=== PATIENT | male | born 1955 | race Caucasian/White ===

== ENCOUNTER → 2021-05-25 15:21 | Outpatient (CLI) | payer OTHER, SELFPAY ==
[2021-05-25 17:27] LABS: Prostate Specific Antigen < 0.064 ng/mL (0.10-4.00)
== END ==
PROVIDERS: PCP Family Medicine; Referring Provider Urology; Visit Provider Urology
DX: R97.20 Elevated prostate specific antigen [PSA] (principal)
CPT/HCPCS: 36415; 84153

== ENCOUNTER → 2021-12-07 10:00 | Outpatient (CLI) | payer OTHER, SELFPAY | PROVIDERS: PCP Family Medicine; Referring Provider Internal Medicine; Visit Provider Internal Medicine | DX: Z23 Encounter for immunization (principal) | CPT/HCPCS: 90471; 90686 ==

== ENCOUNTER → 2021-12-29 14:30 | Outpatient (CLI) | payer OTHER, SELFPAY ==
--- NOTE | 2021-12-29 14:31 | DI.RAD.S_ITS ---
PROCEDURE: XR FEMUR RT MIN 2V INDICATIONS: pain in hip and shoulder TECHNIQUE: 2 views of the femur were acquired. COMPARISON: [facility], CR, XR PELVIS 1-2V, 12/29/2021, 14:44. FINDINGS: Bones: No fractures or dislocations. No suspicious bony lesions. Moderate to severe right hip joint space narrowing with periarticular osteophyte formation. Soft tissues: No suspicious soft tissue calcifications or masses. IMPRESSION: Moderate to severe right hip joint degeneration. Dictated by: Myles Bacon [facility] Interpreted: Karan Mack MD on 12/29/2021 at 15:22 Transcribed by: GAMALIEL on 12/29/2021 at 15:23 Approved by: Karan Mack M.D. on 12/29/2021 at 17:32
--- NOTE | 2021-12-29 14:31 | DI.RAD.S_ITS ---
PROCEDURE: XR PELVIS 1-2V INDICATIONS: pain in hip and shoulder TECHNIQUE: 1 view(s) of the pelvis acquired. COMPARISON: [facility], CR, XR FEMUR RT MIN 2V, 12/29/2021, 14:44. FINDINGS: Bones: No fractures or dislocations. No suspicious bony lesions. Moderate right and mild left hip joint space narrowing with periarticular osteophyte formation. Soft tissues: Visualized bowel gas pattern is normal. No suspicious soft tissue calcifications. IMPRESSION: Moderate right and mild left hip joint degeneration. Dictated by: Myles Bacon [facility] Interpreted: Karan Mack MD on 12/29/2021 at 15:19 Transcribed by: GAMALIEL on 12/29/2021 at 15:20 Approved by: Karan Mack M.D. on 12/29/2021 at 17:32
--- NOTE | 2021-12-29 14:31 | DI.RAD.S_ITS ---
PROCEDURE: XR SHOULDER RT MIN 2V INDICATIONS: pain in hip and shoulder TECHNIQUE: 3 views of the shoulder were acquired. COMPARISON: None. FINDINGS: Bones: No fractures or dislocations. No suspicious bony lesions. Visualized ribs appear intact. Moderate acromioclavicular and mild glenohumeral joint space narrowing with periarticular osteophyte formation. Soft tissues: No suspicious soft tissue calcifications. IMPRESSION: 1. Moderate acromioclavicular and mild glenohumeral joint degeneration. Dictated by: Myles Bacon [facility] Interpreted: Karan Mack MD on 12/29/2021 at 15:27 Transcribed by: GAMALIEL on 12/29/2021 at 15:27 Approved by: Karan Mack M.D. on 12/29/2021 at 17:31
== END ==
PROVIDERS: PCP Family Medicine; Referring Provider Family Medicine; Visit Provider Family Medicine
DX: M16.0 Bilateral primary osteoarthritis of hip (principal); M19.011 Primary osteoarthritis, right shoulder; M25.551 Pain in right hip; M25.511 Pain in right shoulder; G89.29 Other chronic pain
CPT/HCPCS: 72170; 73030; 73552

== ENCOUNTER → 2022-04-07 07:30 | Outpatient (CLI) | payer OTHER, SELFPAY ==
[2022-04-07 08:37] LABS: Add Manual Diff / Slide Review NO; Basophils Absolute Auto 100 /uL (0-100); Basophils Percent Auto 1.1 % (0-2); Eosinophils Absolute Auto 500 /uL (0-450); Eosinophils Percent Auto 6.5 % (2-4); Hematocrit 45.2 % (41-53); Lymphocytes Absolute Auto 2300 /uL (1100-4500); Lymphocytes Percent Auto 31.9 % (25-40); Mean Corpuscular HGB Conc 33.2 % (30-36); Mean Corpuscular Hemoglobin 26.3 PG (26-34); Mean Corpuscular Volume 79.2 fL (80-100); Monocytes Absolute Auto 800 /uL (0-900); Monocytes Percent Auto 10.7 % (3-14); Neutrophils Absolute Auto 3700 /uL (1500-7000); Neutrophils Percent Auto 49.8 % (50-75); Platelet Count 188 X10^3/uL (150-400); Red Blood Cell Count 5.71 X10^6/uL (4.5-5.9); Red Cell Distribution Width 17.3 % (11.6-14.8); White Blood Cell Count 7.4 X10^3/uL (4.5-11.0)
[2022-04-07 09:05] LABS: Alanine Aminotransferase 24 IU/L (<50); Albumin 4.1 g/dL (3.5-5.0); Albumin Globulin Ratio 1.4 (1.0-2.8); Alkaline Phosphatase 75 U/L (38-126); Aspartate Aminotransferase 26 IU/L (17-59); BUN Creatinine Ratio 14.7 (6-22); Bilirubin Total 0.6 mg/dL (0.2-1.3); Blood Urea Nitrogen 15 mg/dL (9-20); Calcium 8.9 mg/dL (8.4-10.2); Carbon Dioxide 28 mmol/L (22-32); Chloride 105 mmol/L (98-107); Cholesterol 139 mg/dL (140-199); Estimated Glomerular Filt Rate > 60 mL/min (>60); Glucose 88 mg/dL (80-110); HDL Cholesterol 47 mg/dL (40-60); HEMOLYSIS 18 (0-50); LDL Cholesterol Calculated 74 mg/dL (<100); Potassium 4.1 mmol/L (3.4-5.1); Sodium 141 mmol/L (137-145); Total Protein 7.1 g/dL (6.3-8.2); Triglycerides 89 mg/dL (35-150)
[2022-04-07 09:34] LABS: Prostate Specific Antigen Scrn < 0.064 ng/mL (0.1-4.0); TSH w/ Reflex to FT4 3.75 uIU/mL (0.47-4.68)
== END ==
PROVIDERS: PCP Family Medicine; Referring Provider Family Medicine; Visit Provider Family Medicine
DX: E03.9 Hypothyroidism, unspecified (principal); Z12.5 Encounter for screening for malignant neoplasm of prostate
CPT/HCPCS: 36415; 80053; 80061; 84443; 85025; G0103

== ENCOUNTER → 2022-06-14 07:40 | Outpatient (CLI) | payer OTHER, SELFPAY ==
[2022-06-14 09:45] LABS: Prostate Specific Antigen < 0.064 ng/mL (0.10-4.00)
== END ==
PROVIDERS: PCP Family Medicine; Referring Provider Urology; Visit Provider Urology
DX: C61 Malignant neoplasm of prostate (principal)
CPT/HCPCS: 36415; 84153

== ENCOUNTER 2022-10-05 14:15 | Outpatient (RCR) | payer OTHER, SELFPAY ==
--- NOTE | 2022-08-06 16:49 | PT.OIE ---
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) Past Medical History (Last Updated 12/22/21 @ 19:10 by Ashley Bryan) Hearing loss Vision disorder Past Surgical History (Last Updated 12/22/21 @ 19:10 by Ashley Bryan) Anesthesia History of hernia surgery History of prostatectomy (~2018) Visit Care Team Role Provider Type Jethro Finney MD Attending Provider Physician Family Provider Primary Care Provider Referring Provider Specialty: Family Practice Address: [address] [place] [address], [facility] Email: [email or web address] Physical Therapy Initial Evaluation PT-OP-A Visit Information Start: 08/05/22 19:16 Freq: Status: Active Protocol: Document 08/06/22 08:04 LRN (Rec: 08/06/22 08:57 LRN [id number]) Out-Patient Physical Therapy Visit Information Visit Information Visit Type Initial Evaluation Visit Start Time 08:04 Visit Stop Time 08:54 Total Visit Minutes 50 Visit Number 1 Evaluation Information Evaluation Date 08/06/22 Precautions Precautions Neck pain, hypothyroid, hiatel hernia PT-OP-B Current Condition Start: 08/05/22 19:16 Freq: Status: Active Protocol: Document 08/06/22 08:04 LRN (Rec: 08/06/22 08:57 LRN [id number]) Current Condition History of Current Condition Onset Date 01/02/22 Current Complaints Sensitivity of distal R thumb. 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 Pt reports being very sensitive at the distal L thumb to hopes to decrease thumb sensitivity. Sensitive is greatest at ends of scar and along the scar surface, reporting a tickly feeling on mostly the dorsal surface of the L thumb. States there are no precautions to treatment. New skin growth after surgery healed at the end of Jan 2022 . Pt reported thumbnail removed 06/21/22 has healed completely and skin is intact. Prior Treatments and Tests Hand therapy starting 02/2022 for 6 visits. Treatment of ROM and desensitization. No precautions. Future Testing and Treatments Planned Next MD appt -1/week for the next 2 weeks. Treatment Goals Patient/Caregiver Goals Pt goal is desensitization of the thumb to help lessen feeling of tickle when picking up a piece of paper. 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 PT-OP-C Subjective Start: 08/05/22 19:16 Freq: Status: Active Protocol: Document 08/06/22 08:04 LRN (Rec: 08/06/22 08:57 LRN [id number]) Patient Questionnaires Quick Dash- Upper Extremity Quick Dash UE Score 20.45 Quick Dash UE Impairment 20 to 39% Impaired (Score 20- 39) OP-PT Pain Assessment Pain Assessment Grid Paper Pain Assessment Grid Completed Yes Location R thumb Pain Location Details dorsal and palmar surface of R thumb Intensity 8 Scale Used Numeric (0 - 10) Description- Other Tickly feeling Frequency Constant Pain Duration When touched Other Pain Alleviating Factors Vibrator 15'/night with oil, EStim - pads around thumb and 2nd above wrist. PT-OP-H Neuro Start: 08/05/22 19:16 Freq: Status: Active Protocol: Document 08/06/22 08:04 LRN (Rec: 08/06/22 08:57 LRN [id number]) Sensation Evaluation Gross Sensation Gross Sensation Right UE Impaired Sensation Description Hyperesthesia Comments Summary Comments Normal sensation at thumb except at scar and small area of edema. PT-OP-J Posture/Palpation/Skin Start: 08/05/22 19:16 Freq: Status: Active Protocol: Document 08/06/22 08:04 LRN (Rec: 08/06/22 08:57 LRN [id number]) Palpation Assessment Location R thumb Palpation Location Sensitive at ends of scar and along scar and small area of edema. Palpation Details Very small 1/2 cm diameter area adjacent to scar towards distal end of scar associated to a feeling of tickle, also along the scar. Skin Assessment Edema Assessment R thumb tip Edema Type Non-Pitting Edema Degree 1+ Edema Appearance Puffy Comments Tickle sensation PT-OP-K Range of Motion Start: 08/05/22 19:16 Freq: Status: Active Protocol: Document 08/06/22 08:04 LRN (Rec: 08/06/22 08:57 LRN [id number]) Wrist Goniometric Range of Motion Wrist Right Wrist ROM WFL Yes Flexion Active (degrees) 70 Extension Active (degrees) 58 Ulnar Deviation Active (degrees) 30 Radial Deviation Active (degrees) 20 Left Wrist ROM WFL Yes Flexion Active (degrees) 70 Extension Active (degrees) 58 Ulnar Deviation Active (degrees) 30 Radial Deviation Active (degrees) 30 Thumb Goniometric Range of Motion Thumb Right Thumb ROM WFL Yes MCP Flexion Active (degrees) 58 CMC Extension Active (degrees) 20 Comments R MCP: ext lacks 8 deg's to full extension. CMC AB: 42 deg's Left MCP Flexion Active (degrees) 50 MCP Extension Active (0 degrees) 0 H CMC Extension Active (degrees) 34 Comments CMC AB: 66 deg's PT-OP-M Strength Start: 08/05/22 19:16 Freq: Status: Active Protocol: Document 08/06/22 08:04 LRN (Rec: 08/06/22 08:57 LRN [id number]) Finger/Thumb Strength Finger Manual Muscle Testing Right Thumb Flexion (fingers C8) 5 Normal Extension (thumb C8) 5 Normal Adduction 5 Normal Abduction (fingers T1) 5 Normal Left Thumb Flexion (fingers C8) 5 Normal Extension (thumb C8) 5 Normal Adduction 5 Normal Abduction (fingers T1) 5 Normal Hand Glassware Verifier/Pinch Strength Hand Dominance Hand Dominance Right PT-OP-Q Treatments Start: 08/05/22 19:16 Freq: Status: Active Protocol: Document 08/06/22 08:04 LRN (Rec: 08/06/22 08:57 LRN [id number]) Manual Therapy Treatment Soft Tissue Mobilization L thumb Body Location Healed scar at distal end of L thumb Mobilization Type Myofascial Release Intensity/Depth Superficial Body Position Sitting Taping L thumb scar Body Location L thumb scar Treatment Focus Improve mobility Type of Tape Kinesio Tape Skin Inspection Healthy and intact Self-Care/Home Management Treatment Education Other Education Discussed results of evaluation, goals, and plan of care (POC). Pt agreeable to goals and POC. Discussed use of pt's current modalities: vibration tool, EStim unit, and Soft vinyl for STM. Activities Self-Care/Home Management Activities I/S pt in length of usage of K -tape with discussion of removal in case of allergic reaction and safe and proper method to remove within 5 days or less. Discussed precaution of wearing K-tape for longer than 5 days. Pt I/S in self care scar mobilization technique. PT-OP-T Assessment and Plan Start: 08/05/22 19:16 Freq: Status: Active Protocol: Document 08/06/22 08:04 LRN (Rec: 08/06/22 08:57 LRN [id number]) Physical Therapy Assessment Rehab Potential Rehabilitation Potential Good Evaluation Complexity Number of Personal Factors/Comorbidities 1-2 Number of Body Systems Impaired 3 Clinical Presentation at Evaluation Evolving Impairments Impairments Activity Tolerance,ROM, Sensation Goals Two Impairment Increased sensitivity at distal end of L amputated thumb-tickle sensation. Impairment UE Quickdash score 20 (20-39% impaired, score 20-39) Short Term Goal (STG) Decrease sensitivity of the L thumb with decrease tickle feeling when touching objects. Pt goal is desensitization of the thumb to help lessen feeling of tickle when picking up a piece of paper. STG Duration 09/03/22 Senior Care Goal (LTG) Pt will report less irritation towards picking up a piece of paper with L thumb. LTG Duration 09/20/22 One Impairment Pt lacks self care HEP Short Term Goal (STG) Pt will be educated in self STM, use of K-tape to improve scar mobility of distal L thumb. STG Duration 08/13/22 Senior Care Goal (LTG) Pt will be educated and independent with self care pain management techniques to decrease sensitivity of L thumb (contrast bath, materal desensitization). LTG Duration 09/20/22 Assessment Summary Assessment Pt is a 67 yo male s/p L thumb amputation 01/02/22 and subsequent hand therapy at [facility] starting 02/2022 for 6 visits. The pt has L thumb hypersensitivity of a tickle feeling when touched at the well healed scar and adjacent issues. He has no pain and his skin integrity and health is normal. The pt will benefit from skilled physical therapy for manual STM of scar and adjacent areas, desensitization techniques, and pt education in a self skilled nursing program. It is expected that it will take an extended period of time for improvement; therefore the pt will be progressed onto a program and seen for a follow up visit before DC from physical therapy. Physical Therapy Plan Frequency and Duration Frequency of Treatment 1x/Week Plan of Care Start Date 08/06/22 Plan of Care End Date 09/20/22 Therapeutic Interventions Therapeutic Interventions Home Exercise Program,Manual Therapy,Patient/Caregiver Education,Self-Care/Home Management,Soft Tissue Mobilization,Taping, Therapeutic Exercises Modalities Cold Pack/Ice Massage,Hot Packs,Paraffin Bath Next Visit Focus/Plan Next Note Type Treatment Note Next Visit Plan 2x/week for first week f/b 1x/ week until home program established and plateau in progress in the clinic, then pt will be seen for f/u visit after being on self care program before final discharge from therapy. POC: desensitization of L thumb scar and adjacent skin. STM, ROM, edema management as needed, and use of K-tape, hot/cold, progressive desensitization rice, beans, material, Paraffin dip.
--- NOTE | 2022-08-06 16:50 | PT.OPPOC ---
Physical, Occupational & Speech Therapy At 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) Visit Care Team Role Provider Type Jethro Finney MD Attending Provider Physician Family Provider Primary Care Provider Referring Provider Specialty: Family Practice Address: [address] [place] [address], [id number] Email: [email or web address] Plan Of Care PT-OP-T Assessment and Plan Start: 08/05/22 19:16 Freq: Status: Active Protocol: Document 08/06/22 08:04 LRN (Rec: 08/06/22 08:57 LRN [id number]) Physical Therapy Assessment Rehab Potential Rehabilitation Potential Good Evaluation Complexity Number of Personal Factors/Comorbidities 1-2 Number of Body Systems Impaired 3 Clinical Presentation at Evaluation Evolving Impairments Impairments Activity Tolerance,ROM, Sensation Goals Two Impairment Increased sensitivity at distal end of L amputated thumb-tickle sensation. Impairment UE Quickdash score 20 (20-39% impaired, score 20-39) Short Term Goal (STG) Decrease sensitivity of the L thumb with decrease tickle feeling when touching objects. Pt goal is desensitization of the thumb to help lessen feeling of tickle when picking up a piece of paper. STG Duration 09/03/22 Packing And Shipping Clerk Goal (LTG) Pt will report less irritation towards picking up a piece of paper with L thumb. LTG Duration 09/20/22 One Impairment Pt lacks self care HEP Short Term Goal (STG) Pt will be educated in self STM, use of K-tape to improve scar mobility of distal L thumb. STG Duration 08/13/22 Penitentiary Goal (LTG) Pt will be educated and independent with self care pain management techniques to decrease sensitivity of L thumb (contrast bath, materal desensitization). LTG Duration 09/20/22 Assessment Summary Assessment Pt is a 67 yo male s/p L thumb amputation 01/02/22 and subsequent hand therapy at [facility] starting 02/2022 for 6 visits. The pt has L thumb hypersensitivity of a tickle feeling when touched at the well healed scar and adjacent issues. He has no pain and his skin integrity and health is normal. The pt will benefit from skilled physical therapy for manual STM of scar and adjacent areas, desensitization techniques, and pt education in a self usp program. It is expected that it will take an extended period of time for improvement; therefore the pt will be progressed onto a program and seen for a follow up visit before DC from physical therapy. Physical Therapy Plan Frequency and Duration Frequency of Treatment 1x/Week Plan of Care Start Date 08/06/22 Plan of Care End Date 09/20/22 Therapeutic Interventions Therapeutic Interventions Home Exercise Program,Manual Therapy,Patient/Caregiver Education,Self-Care/Home Management,Soft Tissue Mobilization,Taping, Therapeutic Exercises Modalities Cold Pack/Ice Massage,Hot Packs,Paraffin Bath Next Visit Focus/Plan Next Note Type Treatment Note Next Visit Plan 2x/week for first week f/b 1x/ week until home program established and plateau in progress in the clinic, then pt will be seen for f/u visit after being on self care program before final discharge from therapy. POC: desensitization of L thumb scar and adjacent skin. STM, ROM, edema management as needed, and use of K-tape, hot/cold, progressive desensitization rice, beans, material, Paraffin dip. Plan of Care Dates Plan of Care Start Date 08/06/22 Plan of Care End Date 09/20/22 Electronically Signed by: Sarah Queen, PT 08/06/22 3116 If you are in agreement with this Plan of Care, please return a signed and dated copy. I have reviewed this Plan of Care and certify that the skilled therapy services above are required to meet the patient?s needs. Physician Signature Date Printed Name and Credentials Clinical Instructor Signature Printed Name and Credentials
--- NOTE | 2022-08-12 16:40 | PT.OTN ---
Current Diagnoses Acquired absence of left thumb (08/12/22) Physical Therapy Treatment Note PT-OP-A Visit Information Start: 08/05/22 19:16 Freq: Status: Active Protocol: Document 08/12/22 15:04 LRN (Rec: 08/12/22 16:39 LRN [id number]) Out-Patient Physical Therapy Visit Information Visit Information Visit Type Treatment Note Visit Start Time 15:04 Visit Stop Time 15:52 Total Visit Minutes 48 Visit Number 38 Evaluation Information Evaluation Date 08/06/22 Precautions Precautions Neck pain, hypothyroid, hiatel hernia PT-OP-B Current Condition Start: 08/05/22 19:16 Freq: Status: Active Protocol: Document 08/06/22 08:04 LRN (Rec: 08/06/22 08:57 LRN [id number]) Current Condition History of Current Condition Onset Date 01/02/22 Current Complaints Sensitivity of distal R thumb. 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 Pt reports being very sensitive at the distal L thumb to hopes to decrease thumb sensitivity. Sensitive is greatest at ends of scar and along the scar surface, reporting a tickly feeling on mostly the dorsal surface of the L thumb. States there are no precautions to treatment. New skin growth after surgery healed at the end of Jan 2022 . Pt reported thumbnail removed 06/21/22 has healed completely and skin is intact. Prior Treatments and Tests Hand therapy starting 02/2022 for 6 visits. Treatment of ROM and desensitization. No precautions. Future Testing and Treatments Planned Next MD appt -1/week for the next 2 weeks. Treatment Goals Patient/Caregiver Goals Pt goal is desensitization of the thumb to help lessen feeling of tickle when picking up a piece of paper. 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 PT-OP-C Subjective Start: 08/05/22 19:16 Freq: Status: Active Protocol: Document 08/12/22 15:04 LRN (Rec: 08/12/22 16:39 LRN [id number]) OP-PT Subjective Patient Comments Patient Comments Pt reports doing self massage to L healed thumb. Scar sensitive. PT-OP-H Neuro Start: 08/05/22 19:16 Freq: Status: Active Protocol: Document 08/06/22 08:04 LRN (Rec: 08/06/22 08:57 LRN [id number]) Sensation Evaluation Gross Sensation Gross Sensation Right UE Impaired Sensation Description Hyperesthesia Comments Summary Comments Normal sensation at thumb except at scar and small area of edema. PT-OP-J Posture/Palpation/Skin Start: 08/05/22 19:16 Freq: Status: Active Protocol: Document 08/12/22 15:04 LRN (Rec: 08/12/22 16:39 LRN [id number]) Palpation Assessment Location R thumb Palpation Location Tip of thumb where thumbnail is. Palpation Details No pain, good skin coloring. PT-OP-K Range of Motion Start: 08/05/22 19:16 Freq: Status: Active Protocol: Document 08/06/22 08:04 LRN (Rec: 08/06/22 08:57 LRN [id number]) Wrist Goniometric Range of Motion Wrist Right Wrist ROM WFL Yes Flexion Active (degrees) 70 Extension Active (degrees) 58 Ulnar Deviation Active (degrees) 30 Radial Deviation Active (degrees) 20 Left Wrist ROM WFL Yes Flexion Active (degrees) 70 Extension Active (degrees) 58 Ulnar Deviation Active (degrees) 30 Radial Deviation Active (degrees) 30 Thumb Goniometric Range of Motion Thumb Right Thumb ROM WFL Yes MCP Flexion Active (degrees) 58 CMC Extension Active (degrees) 20 Comments R MCP: ext lacks 8 deg's to full extension. CMC AB: 42 deg's Left MCP Flexion Active (degrees) 50 MCP Extension Active (0 degrees) 0 H CMC Extension Active (degrees) 34 Comments CMC AB: 66 deg's PT-OP-M Strength Start: 08/05/22 19:16 Freq: Status: Active Protocol: Document 08/06/22 08:04 LRN (Rec: 08/06/22 08:57 LRN [id number]) Finger/Thumb Strength Finger Manual Muscle Testing Right Thumb Flexion (fingers C8) 5 Normal Extension (thumb C8) 5 Normal Adduction 5 Normal Abduction (fingers T1) 5 Normal Left Thumb Flexion (fingers C8) 5 Normal Extension (thumb C8) 5 Normal Adduction 5 Normal Abduction (fingers T1) 5 Normal Hand Vp Human Resources/Pinch Strength Hand Dominance Hand Dominance Right PT-OP-Q Treatments Start: 08/05/22 19:16 Freq: Status: Active Protocol: Document 08/12/22 15:04 LRN (Rec: 08/12/22 16:39 LRN [id number]) Manual Therapy Treatment Soft Tissue Mobilization L thumb Body Location Healed scar - all areas. Mobilization Type Myofascial Release Intensity/Depth Superficial to moderate Body Position Sitting Taping L thumb scar Body Location L thumb scar (plantar and medially) Treatment Focus 2 narrow I-strips to Improve mobility Type of Tape Kinesio Tape Skin Inspection Healthy and intact Self-Care/Home Management Treatment Education Other Education Pt educated and discussed contrast bath treatment to the R thumb with reinforcement to start/end with heat. Pt educated and shown in self STM to healed scar durint STM treatment. Activities Self-Care/Home Management Activities Issued handout for contrast bath treatment. I/S pt in length of usage of K -tape with discussion of removal in case of allergic reaction and safe and proper method to remove within 5 days or less. PT-OP-T Assessment and Plan Start: 08/05/22 19:16 Freq: Status: Active Protocol: Document 08/12/22 15:04 LRN (Rec: 08/12/22 16:39 LRN [id number]) Physical Therapy Assessment Goals Two Impairment Increased sensitivity at distal end of L amputated thumb-tickle sensation. Impairment UE Quickdash score 20 (20-39% impaired, score 20-39) Short Term Goal (STG) Decrease sensitivity of the L thumb with decrease tickle feeling when touching objects. Pt goal is desensitization of the thumb to help lessen feeling of tickle when picking up a piece of paper. STG Duration 09/03/22 Director Of Mobile Marketing Goal (LTG) Pt will report less irritation towards picking up a piece of paper with L thumb. LTG Duration 09/20/22 One Impairment Pt lacks self care HEP Short Term Goal (STG) Pt will be educated in self STM, use of K-tape to improve scar mobility of distal L thumb. 08/12/22: Pt I/S in self STM to improve scar mobility during MFR treatment. STG Duration 08/13/22 progressed 08/12/22 Nursing Home Goal (LTG) Pt will be educated and independent with self care pain management techniques to decrease sensitivity of L thumb (materal desensitization ). 08/12/22: Pt educated in self care contrast bath treatment. LTG Duration 09/20/22 progressed 08/12/22. Assessment Summary Assessment s/p L thumb amputation 11/12/ 22 and subsequent hand therapy at [facility] starting 02/2022 for 6 visits. No L thumb edema noted. The pt had tickle relief while K-tape was on, but conts to have sensitivity at well healed scar. He tolerated MFR very well with scar mob. Pt has most sensitivity in areas that are very restricted with mobility. Hopeful sensitivity will decrease with mobilization. Physical Therapy Plan Frequency and Duration Frequency of Treatment 1x/Week Plan of Care Start Date 08/06/22 Plan of Care End Date 09/20/22 Next Visit Focus/Plan Next Note Type Treatment Note Next Visit Plan 1x/week until home program established (2 more appts scheduled) and/or plateau in progress in the clinic, then pt will be seen for f/u visit after being on self care program for 2-3 weeks before final discharge from therapy. POC: desensitization of L thumb scar and adjacent skin with treatment and self care education: progressive desensitization with rice, beans, material, Paraffin dip. Cont STM, ROM, and use of K -tape.
--- NOTE | 2022-08-16 15:51 | PT.OTN ---
Current Diagnoses Acquired absence of left thumb (08/16/22) Physical Therapy Treatment Note PT-OP-A Visit Information Start: 08/05/22 19:16 Freq: Status: Active Protocol: Document 08/16/22 14:06 LRN (Rec: 08/16/22 15:51 LRN [id number]) Out-Patient Physical Therapy Visit Information Visit Information Visit Type Treatment Note Visit Start Time 14:58 Visit Stop Time 15:38 Total Visit Minutes 40 Visit Number 3 Evaluation Information Evaluation Date 08/06/22 Precautions Precautions Neck pain, hypothyroid, hiatel hernia PT-OP-B Current Condition Start: 08/05/22 19:16 Freq: Status: Active Protocol: Document 08/06/22 08:04 LRN (Rec: 08/06/22 08:57 LRN [id number]) Current Condition History of Current Condition Onset Date 01/02/22 Current Complaints Sensitivity of distal R thumb. 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 Pt reports being very sensitive at the distal L thumb to hopes to decrease thumb sensitivity. Sensitive is greatest at ends of scar and along the scar surface, reporting a tickly feeling on mostly the dorsal surface of the L thumb. States there are no precautions to treatment. New skin growth after surgery healed at the end of Jan 2022 . Pt reported thumbnail removed 06/21/22 has healed completely and skin is intact. Prior Treatments and Tests Hand therapy starting 02/2022 for 6 visits. Treatment of ROM and desensitization. No precautions. Future Testing and Treatments Planned Next MD appt -1/week for the next 2 weeks. Treatment Goals Patient/Caregiver Goals Pt goal is desensitization of the thumb to help lessen feeling of tickle when picking up a piece of paper. 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 PT-OP-C Subjective Start: 08/05/22 19:16 Freq: Status: Active Protocol: Document 08/16/22 14:06 LRN (Rec: 08/16/22 15:51 LRN [id number]) OP-PT Subjective Patient Comments Patient Comments States his L thumb is a little less sensitive with messing with it. Patient Reported Progress Improving PT-OP-H Neuro Start: 08/05/22 19:16 Freq: Status: Active Protocol: Document 08/06/22 08:04 LRN (Rec: 08/06/22 08:57 LRN [id number]) Sensation Evaluation Gross Sensation Gross Sensation Right UE Impaired Sensation Description Hyperesthesia Comments Summary Comments Normal sensation at thumb except at scar and small area of edema. PT-OP-J Posture/Palpation/Skin Start: 08/05/22 19:16 Freq: Status: Active Protocol: Document 08/12/22 15:04 LRN (Rec: 08/12/22 16:39 LRN [id number]) Palpation Assessment Location R thumb Palpation Location Tip of thumb where thumbnail is. Palpation Details No pain, good skin coloring. PT-OP-K Range of Motion Start: 08/05/22 19:16 Freq: Status: Active Protocol: Document 08/06/22 08:04 LRN (Rec: 08/06/22 08:57 LRN [id number]) Wrist Goniometric Range of Motion Wrist Right Wrist ROM WFL Yes Flexion Active (degrees) 70 Extension Active (degrees) 58 Ulnar Deviation Active (degrees) 30 Radial Deviation Active (degrees) 20 Left Wrist ROM WFL Yes Flexion Active (degrees) 70 Extension Active (degrees) 58 Ulnar Deviation Active (degrees) 30 Radial Deviation Active (degrees) 30 Thumb Goniometric Range of Motion Thumb Right Thumb ROM WFL Yes MCP Flexion Active (degrees) 58 CMC Extension Active (degrees) 20 Comments R MCP: ext lacks 8 deg's to full extension. CMC AB: 42 deg's Left MCP Flexion Active (degrees) 50 MCP Extension Active (0 degrees) 0 H CMC Extension Active (degrees) 34 Comments CMC AB: 66 deg's PT-OP-M Strength Start: 08/05/22 19:16 Freq: Status: Active Protocol: Document 08/06/22 08:04 LRN (Rec: 08/06/22 08:57 LRN [id number]) Finger/Thumb Strength Finger Manual Muscle Testing Right Thumb Flexion (fingers C8) 5 Normal Extension (thumb C8) 5 Normal Adduction 5 Normal Abduction (fingers T1) 5 Normal Left Thumb Flexion (fingers C8) 5 Normal Extension (thumb C8) 5 Normal Adduction 5 Normal Abduction (fingers T1) 5 Normal Hand Wood Boatbuilder Apprentice/Pinch Strength Hand Dominance Hand Dominance Right PT-OP-Q Treatments Start: 08/05/22 19:16 Freq: Status: Active Protocol: Document 08/16/22 14:06 LRN (Rec: 08/16/22 15:51 LRN [id number]) Therapeutic Exercises Sitting Exercises L IP jt flex/ext Sitting Exercise Name L IP jt flex/ext Side left Reps/Minutes 15x 2 Comments While on Paraffin Wax CMC jt flex/ext Sitting Exercise Name CMC jt flex/ext Side left Reps/Minutes 15x 2 Comments While on Paraffin Wax Manual Therapy Treatment Soft Tissue Mobilization L thumb Body Location Healed scar - all areas. Mobilization Type Myofascial Release Intensity/Depth Superficial to moderate Body Position Sitting Taping L thumb scar Body Location L thumb scar (plantar and medially) Treatment Focus 1 narrow I-strips to Improve mobility Type of Tape Kinesio Tape Skin Inspection Healthy and intact Comments Educated pt in self application of K-tape to L thumb. Issued 1 strip of K- tape for pt to self apply at home. Reviewed max day wear of 5 days with 1 day rest between application. PT-OP-R Modalities Start: 08/05/22 19:16 Freq: Status: Active Protocol: Document 08/16/22 14:06 LRStephanie (Rec: 08/16/22 15:51 LR [id number]) Paraffin Bath Treatment Left Hand Treatment Technique Dip-immersion Wax Temperature (degrees F) 127 Number Wax Layers (layers) 8 Duration (minutes) 15 Patient Tolerance Good Comment Treatment Comment 53 deg's Celsius. Extra time to assure hand clean before dip. PT-OP-T Assessment and Plan Start: 08/05/22 19:16 Freq: Status: Active Protocol: Document 08/16/22 14:06 JOSE CRUZ (Rec: 08/16/22 15:51 [facility] [id number]) Physical Therapy Assessment Goals Two Impairment Increased sensitivity at distal end of L amputated thumb-tickle sensation. Impairment UE Quickdash score 20 (20-39% impaired, score 20-39) Short Term Goal (STG) Decrease sensitivity of the L thumb with decrease tickle feeling when touching objects. Pt goal is desensitization of the thumb to help lessen feeling of tickle when picking up a piece of paper. STG Duration 09/03/22 Tap Out Operator Goal (LTG) Pt will report less irritation towards picking up a piece of paper with L thumb. LTG Duration 09/20/22 One Impairment Pt lacks self care HEP Short Term Goal (STG) Pt will be educated in self STM, use of K-tape to improve scar mobility of distal L thumb. 08/12/22: Pt I/S in self STM to improve scar mobility during MFR treatment. 08/16/22: Educated pt in self K-tape application. STG Duration 08/13/22 progressed 08/12/22 Tap Out Operator Goal (LTG) Pt will be educated and independent with self care pain management techniques to decrease sensitivity of L thumb (materal desensitization ). 08/12/22: Pt educated in self care contrast bath treatment. LTG Duration 09/20/22 progressed 08/12/22. Assessment Summary Assessment Pt appears to have improved tolerance to scar mob. + response to paraffin dip with pt able to tolerate scar mob with less discomfort. Physical Therapy Plan Frequency and Duration Frequency of Treatment 1x/Week Plan of Care Start Date 08/06/22 Plan of Care End Date 09/20/22 Next Visit Focus/Plan Next Note Type Treatment Note Next Visit Plan 1 more appts scheduled, assess the need for further therapy. Once on self [facility] program, see pt for f/u visit in 2-3 weeks for expected final visit and discharge from therapy. Next: treat and self care education: desensitization with progressive desensitization with rice, beans, material. Cont if able, paraffin and ROM ; STM and K-tape.
--- NOTE | 2022-08-20 18:34 | PT.OTN ---
Current Diagnoses Acquired absence of left thumb (08/20/22) Physical Therapy Treatment Note PT-OP-A Visit Information Start: 08/05/22 19:16 Freq: Status: Active Protocol: Document 08/20/22 08:01 LRN (Rec: 08/20/22 08:49 LRN [id number]) Out-Patient Physical Therapy Visit Information Visit Information Visit Type Treatment Note Visit Start Time 08:01 Visit Stop Time 08:49 Total Visit Minutes 48 Visit Number 4 Evaluation Information Evaluation Date 08/06/22 Precautions Precautions Neck pain, hypothyroid, hiatel hernia PT-OP-B Current Condition Start: 08/05/22 19:16 Freq: Status: Active Protocol: Document 08/06/22 08:04 LRN (Rec: 08/06/22 08:57 LRN [id number]) Current Condition History of Current Condition Onset Date 01/02/22 Current Complaints Sensitivity of distal R thumb. 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 Pt reports being very sensitive at the distal L thumb to hopes to decrease thumb sensitivity. Sensitive is greatest at ends of scar and along the scar surface, reporting a tickly feeling on mostly the dorsal surface of the L thumb. States there are no precautions to treatment. New skin growth after surgery healed at the end of Jan 2022 . Pt reported thumbnail removed 06/21/22 has healed completely and skin is intact. Prior Treatments and Tests Hand therapy starting 02/2022 for 6 visits. Treatment of ROM and desensitization. No precautions. Future Testing and Treatments Planned Next MD appt -1/week for the next 2 weeks. Treatment Goals Patient/Caregiver Goals Pt goal is desensitization of the thumb to help lessen feeling of tickle when picking up a piece of paper. 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 PT-OP-C Subjective Start: 08/05/22 19:16 Freq: Status: Active Protocol: Document 08/20/22 08:01 LRN (Rec: 08/20/22 08:49 LRN [id number]) OP-PT Subjective Patient Comments Patient Comments Pt states he is a little better, less sensitivity. PT-OP-H Neuro Start: 08/05/22 19:16 Freq: Status: Active Protocol: Document 08/06/22 08:04 LRN (Rec: 08/06/22 08:57 LRN [id number]) Sensation Evaluation Gross Sensation Gross Sensation Right UE Impaired Sensation Description Hyperesthesia Comments Summary Comments Normal sensation at thumb except at scar and small area of edema. PT-OP-J Posture/Palpation/Skin Start: 08/05/22 19:16 Freq: Status: Active Protocol: Document 08/12/22 15:04 LRN (Rec: 08/12/22 16:39 LRN [id number]) Palpation Assessment Location R thumb Palpation Location Tip of thumb where thumbnail is. Palpation Details No pain, good skin coloring. PT-OP-K Range of Motion Start: 08/05/22 19:16 Freq: Status: Active Protocol: Document 08/06/22 08:04 LRN (Rec: 08/06/22 08:57 LRN [id number]) Wrist Goniometric Range of Motion Wrist Right Wrist ROM WFL Yes Flexion Active (degrees) 70 Extension Active (degrees) 58 Ulnar Deviation Active (degrees) 30 Radial Deviation Active (degrees) 20 Left Wrist ROM WFL Yes Flexion Active (degrees) 70 Extension Active (degrees) 58 Ulnar Deviation Active (degrees) 30 Radial Deviation Active (degrees) 30 Thumb Goniometric Range of Motion Thumb Right Thumb ROM WFL Yes MCP Flexion Active (degrees) 58 CMC Extension Active (degrees) 20 Comments R MCP: ext lacks 8 deg's to full extension. CMC AB: 42 deg's Left MCP Flexion Active (degrees) 50 MCP Extension Active (0 degrees) 0 H CMC Extension Active (degrees) 34 Comments CMC AB: 66 deg's PT-OP-M Strength Start: 08/05/22 19:16 Freq: Status: Active Protocol: Document 08/06/22 08:04 LRN (Rec: 08/06/22 08:57 LRN [id number]) Finger/Thumb Strength Finger Manual Muscle Testing Right Thumb Flexion (fingers C8) 5 Normal Extension (thumb C8) 5 Normal Adduction 5 Normal Abduction (fingers T1) 5 Normal Left Thumb Flexion (fingers C8) 5 Normal Extension (thumb C8) 5 Normal Adduction 5 Normal Abduction (fingers T1) 5 Normal Hand Fighting Vehicle Systems Maintainer/Pinch Strength Hand Dominance Hand Dominance Right PT-OP-Q Treatments Start: 08/05/22 19:16 Freq: Status: Active Protocol: Document 08/20/22 08:01 LRN (Rec: 08/20/22 08:49 LRN [id number]) Manual Therapy Treatment Soft Tissue Mobilization L thumb Body Location Healed scar - all areas. Mobilization Type Myofascial Release Intensity/Depth Superficial to moderate Body Position Sitting Taping L thumb scar Body Location L thumb scar (plantar and medially) Treatment Focus 1 narrow I-strips to Improve mobility Type of Tape Kinesio Tape Skin Inspection Healthy and intact Comments Educated pt in self application of K-tape to L thumb. Issued 1 strip of K- tape for pt to self apply at home. Reviewed max day wear of 5 days with 1 day rest between application. Manual Techniques Desensitization Type Skin desensitization Body Location L thumb Body Position Sitting Reps/Duration 3' Comments Use of cotton ball, q-tip, washcloth. PT-OP-R Modalities Start: 08/05/22 19:16 Freq: Status: Active Protocol: Document 08/20/22 08:01 LRN (Rec: 08/20/22 18:34 LRN [id number]) Paraffin Bath Comment Treatment Comment Pre-treatment program done, but paraffin was not available . PT-OP-T Assessment and Plan Start: 08/05/22 19:16 Freq: Status: Active Protocol: Document 08/20/22 08:01 LRN (Rec: 08/20/22 08:49 LRN [id number]) Physical Therapy Assessment Goals Two Impairment Increased sensitivity at distal end of L amputated thumb-tickle sensation. Impairment UE Quickdash score 20 (20-39% impaired, score 20-39) Short Term Goal (STG) Decrease sensitivity of the L thumb with decrease tickle feeling when touching objects. Pt goal is desensitization of the thumb to help lessen feeling of tickle when picking up a piece of paper. STG Duration 09/03/22 Product Safety Compliance Leader Goal (LTG) Pt will report less irritation towards picking up a piece of paper with L thumb. LTG Duration 09/20/22 One Impairment Pt lacks self care HEP Short Term Goal (STG) Pt will be educated in self STM, use of K-tape to improve scar mobility of distal L thumb. 08/12/22: Pt I/S in self STM to improve scar mobility during MFR treatment. 08/16/22: Educated pt in self K-tape application. STG Duration 08/13/22 progressed 08/12/22 Detention Goal (LTG) Pt will be educated and independent with self care pain management techniques to decrease sensitivity of L thumb (materal desensitization ). 08/12/22: Pt educated in self care contrast bath treatment. LTG Duration 09/20/22 progressed 08/12/22. Assessment Summary Assessment Pt finding improvement in desensitizing the L thumb; therefore will continue therapy 1x/week. Physical Therapy Plan Frequency and Duration Frequency of Treatment 1x/Week Plan of Care Start Date 08/06/22 Plan of Care End Date 09/20/22 Next Visit Focus/Plan Next Note Type Treatment Note Next Visit Plan Assess response to home desensitization. Cont 1x/week . Next: treat and self care education: desensitization with progressive desensitization with rice, beans, material. Cont paraffin and STM/MFR and K-tape.
--- NOTE | 2022-08-27 17:19 | PT.OTN ---
Current Diagnoses Acquired absence of left thumb (08/27/22) Physical Therapy Treatment Note PT-OP-A Visit Information Start: 08/05/22 19:16 Freq: Status: Active Protocol: Document 08/27/22 10:27 LRN (Rec: 08/27/22 11:08 LRN [id number]) Out-Patient Physical Therapy Visit Information Visit Information Visit Type Treatment Note Visit Start Time 10:27 Visit Stop Time 11:15 Total Visit Minutes 48 Visit Number 5 Evaluation Information Evaluation Date 08/06/22 Precautions Precautions Neck pain, hypothyroid, hiatel hernia PT-OP-B Current Condition Start: 08/05/22 19:16 Freq: Status: Active Protocol: Document 08/06/22 08:04 LRN (Rec: 08/06/22 08:57 LRN [id number]) Current Condition History of Current Condition Onset Date 01/02/22 Current Complaints Sensitivity of distal R thumb. 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 Pt reports being very sensitive at the distal L thumb to hopes to decrease thumb sensitivity. Sensitive is greatest at ends of scar and along the scar surface, reporting a tickly feeling on mostly the dorsal surface of the L thumb. States there are no precautions to treatment. New skin growth after surgery healed at the end of Jan 2022 . Pt reported thumbnail removed 06/21/22 has healed completely and skin is intact. Prior Treatments and Tests Hand therapy starting 02/2022 for 6 visits. Treatment of ROM and desensitization. No precautions. Future Testing and Treatments Planned Next MD appt -1/week for the next 2 weeks. Treatment Goals Patient/Caregiver Goals Pt goal is desensitization of the thumb to help lessen feeling of tickle when picking up a piece of paper. 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 PT-OP-C Subjective Start: 08/05/22 19:16 Freq: Status: Active Protocol: Document 08/27/22 10:27 LRN (Rec: 08/27/22 11:08 LRN [id number]) OP-PT Subjective Patient Comments Patient Comments Not as sensitive as it was. Hot/cold helps and doing vibrating massager. Buttoning his R armsleeve is difficult due to amputation and sensation change of tickling. States the L CMC jt used to really hurt moving the thumb, but not nearly as bad. PT-OP-H Neuro Start: 08/05/22 19:16 Freq: Status: Active Protocol: Document 08/06/22 08:04 LRN (Rec: 08/06/22 08:57 LRN [id number]) Sensation Evaluation Gross Sensation Gross Sensation Right UE Impaired Sensation Description Hyperesthesia Comments Summary Comments Normal sensation at thumb except at scar and small area of edema. PT-OP-J Posture/Palpation/Skin Start: 08/05/22 19:16 Freq: Status: Active Protocol: Document 08/12/22 15:04 LRN (Rec: 08/12/22 16:39 LRN [id number]) Palpation Assessment Location R thumb Palpation Location Tip of thumb where thumbnail is. Palpation Details No pain, good skin coloring. PT-OP-K Range of Motion Start: 08/05/22 19:16 Freq: Status: Active Protocol: Document 08/06/22 08:04 LRN (Rec: 08/06/22 08:57 LRN [id number]) Wrist Goniometric Range of Motion Wrist Right Wrist ROM WFL Yes Flexion Active (degrees) 70 Extension Active (degrees) 58 Ulnar Deviation Active (degrees) 30 Radial Deviation Active (degrees) 20 Left Wrist ROM WFL Yes Flexion Active (degrees) 70 Extension Active (degrees) 58 Ulnar Deviation Active (degrees) 30 Radial Deviation Active (degrees) 30 Thumb Goniometric Range of Motion Thumb Right Thumb ROM WFL Yes MCP Flexion Active (degrees) 58 CMC Extension Active (degrees) 20 Comments R MCP: ext lacks 8 deg's to full extension. CMC AB: 42 deg's Left MCP Flexion Active (degrees) 50 MCP Extension Active (0 degrees) 0 H CMC Extension Active (degrees) 34 Comments CMC AB: 66 deg's PT-OP-M Strength Start: 08/05/22 19:16 Freq: Status: Active Protocol: Document 08/06/22 08:04 LRN (Rec: 08/06/22 08:57 LRN [id number]) Finger/Thumb Strength Finger Manual Muscle Testing Right Thumb Flexion (fingers C8) 5 Normal Extension (thumb C8) 5 Normal Adduction 5 Normal Abduction (fingers T1) 5 Normal Left Thumb Flexion (fingers C8) 5 Normal Extension (thumb C8) 5 Normal Adduction 5 Normal Abduction (fingers T1) 5 Normal Hand Cell Tester/Pinch Strength Hand Dominance Hand Dominance Right PT-OP-Q Treatments Start: 08/05/22 19:16 Freq: Status: Active Protocol: Document 08/27/22 10:27 LRN (Rec: 08/27/22 11:08 LRN [id number]) Manual Therapy Treatment Soft Tissue Mobilization L thumb Body Location Healed scar - all areas. Mobilization Type Myofascial Release Intensity/Depth Superficial to moderate Body Position Sitting Comments Added STM of twisting and zig/ zag of healsed scar. Taping L thumb scar Body Location L thumb scar (plantar and medially) Treatment Focus 2 narrow I-strips to Improve mobility Type of Tape Kinesio Tape Skin Inspection Healthy and intact Comments Educated pt in self application of K-tape to L thumb. Issued 1 I-strip of K- tape for pt to self apply at home. Reviewed max day wear of 5 days with 1 day rest between application. Manual Techniques Desensitization Type Skin desensitization Body Location L thumb Body Position Sitting Reps/Duration 3' Comments Use of beans/rice PT-OP-R Modalities Start: 08/05/22 19:16 Freq: Status: Active Protocol: Document 08/27/22 10:27 LRN (Rec: 08/27/22 17:19 LRN [id number]) Paraffin Bath Treatment Left Hand Treatment Technique Dip-immersion Number Wax Layers (layers) 8 Duration (minutes) 10 Patient Tolerance Good PT-OP-T Assessment and Plan Start: 08/05/22 19:16 Freq: Status: Active Protocol: Document 08/27/22 10:27 LRN (Rec: 08/27/22 11:08 LRN [id number]) Physical Therapy Assessment Goals Two Impairment Increased sensitivity at distal end of L amputated thumb-tickle sensation. Impairment UE Quickdash score 20 (20-39% impaired, score 20-39) Short Term Goal (STG) Decrease sensitivity of the L thumb with decrease tickle feeling when touching objects. Pt goal is desensitization of the thumb to help lessen feeling of tickle when picking up a piece of paper. STG Duration 09/03/22 Assisted Goal (LTG) Pt will report less irritation towards picking up a piece of paper with L thumb. LTG Duration 09/20/22 One Impairment Pt lacks self care HEP Short Term Goal (STG) Pt will be educated in self STM, use of K-tape to improve scar mobility of distal L thumb. 08/12/22: Pt I/S in self STM to improve scar mobility during MFR treatment. 08/16/22: Educated pt in self K-tape application. STG Duration 08/13/22 progressed 08/12/22 Business Continuity Manager Goal (LTG) Pt will be educated and independent with self care pain management techniques to decrease sensitivity of L thumb (materal desensitization ). 08/12/22: Pt educated in self care contrast bath treatment. LTG Duration 09/20/22 progressed 08/12/22. Assessment Summary Assessment Improved fascial glide of more prox scar. Pt noting able to move thmb more during beans/ rice treatment. Pt appears to be consistent with home program as described use of hot/cold and vibrating massager. Pt has good understanding of safe and proper removal of K-tape within 5 days. Physical Therapy Plan Frequency and Duration Frequency of Treatment 1x/Week Plan of Care Start Date 08/06/22 Plan of Care End Date 09/20/22 Next Visit Focus/Plan Next Note Type Treatment Note Next Visit Plan Assess response to home desensitization. Cont 1x/week . Next: treat and self care education: desensitization with progressive desensitization with rice, beans, material, turning of objects (?cards). Cont paraffin and STM/MFR and K-tape.
--- NOTE | 2022-09-03 08:49 | PT.OTN ---
Current Diagnoses Acquired absence of left thumb (09/03/22) Physical Therapy Treatment Note PT-OP-A Visit Information Start: 08/05/22 19:16 Freq: Status: Active Protocol: Document 09/03/22 08:01 LRN (Rec: 09/03/22 08:47 LRN [id number]) Out-Patient Physical Therapy Visit Information Visit Information Visit Type Treatment Note Visit Start Time 08:01 Visit Stop Time 08:43 Total Visit Minutes 42 Visit Number 6 Evaluation Information Evaluation Date 08/06/22 Precautions Precautions Neck pain, hypothyroid, hiatel hernia PT-OP-B Current Condition Start: 08/05/22 19:16 Freq: Status: Active Protocol: Document 08/06/22 08:04 LRN (Rec: 08/06/22 08:57 LRN [id number]) Current Condition History of Current Condition Onset Date 01/02/22 Current Complaints Sensitivity of distal R thumb. 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 Pt reports being very sensitive at the distal L thumb to hopes to decrease thumb sensitivity. Sensitive is greatest at ends of scar and along the scar surface, reporting a tickly feeling on mostly the dorsal surface of the L thumb. States there are no precautions to treatment. New skin growth after surgery healed at the end of Jan 2022 . Pt reported thumbnail removed 06/21/22 has healed completely and skin is intact. Prior Treatments and Tests Hand therapy starting 02/2022 for 6 visits. Treatment of ROM and desensitization. No precautions. Future Testing and Treatments Planned Next MD appt -1/week for the next 2 weeks. Treatment Goals Patient/Caregiver Goals Pt goal is desensitization of the thumb to help lessen feeling of tickle when picking up a piece of paper. 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 PT-OP-C Subjective Start: 08/05/22 19:16 Freq: Status: Active Protocol: Document 09/03/22 08:01 LRN (Rec: 09/03/22 08:47 LRN [id number]) OP-PT Subjective Patient Comments Patient Reported Progress Improving PT-OP-H Neuro Start: 08/05/22 19:16 Freq: Status: Active Protocol: Document 08/06/22 08:04 LRN (Rec: 08/06/22 08:57 LRN [id number]) Sensation Evaluation Gross Sensation Gross Sensation Right UE Impaired Sensation Description Hyperesthesia Comments Summary Comments Normal sensation at thumb except at scar and small area of edema. PT-OP-J Posture/Palpation/Skin Start: 08/05/22 19:16 Freq: Status: Active Protocol: Document 08/12/22 15:04 LRN (Rec: 08/12/22 16:39 LRN [id number]) Palpation Assessment Location R thumb Palpation Location Tip of thumb where thumbnail is. Palpation Details No pain, good skin coloring. PT-OP-K Range of Motion Start: 08/05/22 19:16 Freq: Status: Active Protocol: Document 08/06/22 08:04 LRN (Rec: 08/06/22 08:57 LRN [id number]) Wrist Goniometric Range of Motion Wrist Right Wrist ROM WFL Yes Flexion Active (degrees) 70 Extension Active (degrees) 58 Ulnar Deviation Active (degrees) 30 Radial Deviation Active (degrees) 20 Left Wrist ROM WFL Yes Flexion Active (degrees) 70 Extension Active (degrees) 58 Ulnar Deviation Active (degrees) 30 Radial Deviation Active (degrees) 30 Thumb Goniometric Range of Motion Thumb Right Thumb ROM WFL Yes MCP Flexion Active (degrees) 58 CMC Extension Active (degrees) 20 Comments R MCP: ext lacks 8 deg's to full extension. CMC AB: 42 deg's Left MCP Flexion Active (degrees) 50 MCP Extension Active (0 degrees) 0 H CMC Extension Active (degrees) 34 Comments CMC AB: 66 deg's PT-OP-M Strength Start: 08/05/22 19:16 Freq: Status: Active Protocol: Document 08/06/22 08:04 LRN (Rec: 08/06/22 08:57 LRN [id number]) Finger/Thumb Strength Finger Manual Muscle Testing Right Thumb Flexion (fingers C8) 5 Normal Extension (thumb C8) 5 Normal Adduction 5 Normal Abduction (fingers T1) 5 Normal Left Thumb Flexion (fingers C8) 5 Normal Extension (thumb C8) 5 Normal Adduction 5 Normal Abduction (fingers T1) 5 Normal Hand Senior Validation Engineer/Pinch Strength Hand Dominance Hand Dominance Right PT-OP-Q Treatments Start: 08/05/22 19:16 Freq: Status: Active Protocol: Document 09/03/22 08:01 LRN (Rec: 09/03/22 08:47 LRN [id number]) Therapeutic Exercises Sitting Exercises Opposition ROM Sitting Exercise Name Opposition thumb to digits Side left L IP jt flex/ext Sitting Exercise Name L IP jt flex/ext Side left Reps/Minutes 15x 2 Comments While on Paraffin Wax CMC jt flex/ext Sitting Exercise Name CMC jt flex/ext Side left Reps/Minutes 15x 2 Comments While on Paraffin Wax Manual Therapy Treatment Soft Tissue Mobilization L thumb Body Location Healed scar - all areas. Mobilization Type Myofascial Release Intensity/Depth Superficial to moderate Body Position Sitting Comments Added STM of twisting and zig/ zag of healsed scar. Taping L thumb scar Body Location L thumb scar (plantar and medially) Treatment Focus 2 narrow I-strips to Improve mobility Type of Tape Kinesio Tape Skin Inspection Healthy and intact Comments Educated pt in self application of K-tape to L thumb. Issued 1 I-strip of K- tape for pt to self apply at home. Reviewed max day wear of 5 days with 1 day rest between application. PT-OP-R Modalities Start: 08/05/22 19:16 Freq: Status: Active Protocol: Document 09/03/22 08:01 LRN (Rec: 09/03/22 08:47 N [id number]) Paraffin Bath Treatment Left Hand Treatment Technique Dip-immersion Number Wax Layers (layers) 8 Duration (minutes) 5 Patient Tolerance Good Comment Treatment Comment Thumb/finger AROM during time on Paraffin. PT-OP-T Assessment and Plan Start: 08/05/22 19:16 Freq: Status: Active Protocol: Document 09/03/22 08:01 LRN (Rec: 09/03/22 08:47 [facility] [id number]) Physical Therapy Assessment Goals Two Impairment Increased sensitivity at distal end of L amputated thumb-tickle sensation. Impairment UE Quickdash score 20 (20-39% impaired, score 20-39) Short Term Goal (STG) Decrease sensitivity of the L thumb with decrease tickle feeling when touching objects. Pt goal is desensitization of the thumb to help lessen feeling of tickle when picking up a piece of paper. STG Duration 09/03/22 Embosser Operator Goal (LTG) Pt will report less irritation towards picking up a piece of paper with L thumb. LTG Duration 09/20/22 One Impairment Pt lacks self care HEP Short Term Goal (STG) Pt will be educated in self STM, use of K-tape to improve scar mobility of distal L thumb. 08/12/22: Pt I/S in self STM to improve scar mobility during MFR treatment. 08/16/22: Educated pt in self K-tape application. STG Duration 08/13/22 progressed 08/12/22 Embosser Operator Goal (LTG) Pt will be educated and independent with self care pain management techniques to decrease sensitivity of L thumb (materal desensitization ). 08/12/22: Pt educated in self care contrast bath treatment. LTG Duration 09/20/22 progressed 08/12/22. Assessment Summary Assessment 2 areas of primary restriction are areas of sensitivity. Underside of L thumb is most hindering. Pt appears to be consistent with his HEP. Physical Therapy Plan Frequency and Duration Frequency of Treatment 1x/Week Plan of Care Start Date 08/06/22 Plan of Care End Date 09/20/22 Next Visit Focus/Plan Next Note Type Treatment Note Next Visit Plan Cont 1x/week. Next: Try desensitization with rice/beans. Treat and self care education: desensitization with progressive desensitization with rice, beans, material, turning of objects (?cards). Cont paraffin and STM/MFR and K-tape.
--- NOTE | 2022-09-16 16:17 | PT.OPPOC ---
Physical, Occupational & Speech Therapy At [facility] Current Diagnoses Acquired absence of left thumb (09/21/22) Visit Care Team Role Provider Type Jethro Finney MD Attending Provider Physician Family Provider Primary Care Provider Referring Provider Specialty: Family Practice Address: [address] [place] [address], [id number] Email: [email or web address] Plan Of Care PT-OP-T Assessment and Plan Start: 08/05/22 19:16 Freq: Status: Active Protocol: Document 09/16/22 11:24 LRN (Rec: 09/16/22 12:16 LRN [id number]) Physical Therapy Assessment Rehab Potential Rehabilitation Potential Good Evaluation Complexity Number of Personal Factors/Comorbidities 1-2 Number of Body Systems Impaired 1-2 Clinical Presentation at Evaluation Evolving Impairments Impairments Activity Tolerance,Sensation Goals Two Impairment Increased sensitivity at distal end of L amputated thumb-tickle sensation. Impairment UE Quickdash score 20 (20-39% impaired, score 20-39) 09/16/22: UE Quickdash score 47 (40-59% impaired, score 40- 59) Short Term Goal (STG) Decrease sensitivity of the L thumb with decrease tickle feeling when touching objects. Pt goal is desensitization of the thumb to help lessen feeling of tickle when picking up a piece of paper. 09/16/22: Level of irritation of L thumb is 7/10, he reports initially it was a 9/10. UE Quickdash score is 47 (40-59% impaired, score 40-59). STG Duration 09/03/22 progressing 09/16/22 Correction Goal (LTG) Pt will report less irritation towards picking up a piece of paper with L thumb. 09/16/22: Pt reports less irritation in L thumb and notes only 1 area that is irritating (notes along healed scar ~IP jt). LTG Duration 09/20/22 progressing 09/16/22 One Impairment Pt lacks self care HEP Short Term Goal (STG) Pt will be educated in self STM, use of K-tape to improve scar mobility of distal L thumb. 08/12/22: Pt I/S in self STM to improve scar mobility during MFR treatment. 08/16/22: Educated pt in self K-tape application. 09/16/22: Pt reports knowledge of proper use self K-tape and proper wear time/removal. STG Duration 08/13/22 (09/16/22: MET GOAL) Correction Goal (LTG) Pt will be educated and independent with self care pain management techniques to decrease sensitivity of L thumb (materal desensitization ). 08/12/22: Pt educated in self care contrast bath treatment. 09/16/22: Pt educated in use of rice, beans, materials to desensitize and reviewed use of hot/cold. LTG Duration 09/20/22 progressed 08/17/22. Assessment Summary Assessment Pt is progressing in improving L distal thumb scar mobility and sensitivity. He notes continual slow improvement although his recent UE Quickdash score indicates worsening of function; possibly due to change in his frame of reference of L hand usage. The pt would like to continue therapy to maximize improvement in sensation of the thumb now that he has only one small area where the tickling is felt with use of his hand. I feel this would be appropriate for another 4-5 weeks. Physical Therapy Plan Frequency and Duration Frequency of Treatment 1x/Week Plan of Care Start Date 09/16/22 Plan of Care End Date 10/21/22 Therapeutic Interventions Therapeutic Interventions Home Exercise Program,Manual Therapy,Self-Care/Home Management,Soft Tissue Mobilization,Taping, Therapeutic Exercises Modalities Cold Pack/Ice Massage,Hot Packs,Paraffin Bath Next Visit Focus/Plan Next Note Type Treatment Note Next Visit Plan Cont 1x/week. Next: Try desensitization with beans. Star K-tape at area of most irritation on L thumb scar. Treat and self care education: turning of objects (?cards), desensitization with progressive desensitization with rice, beans, material. Cont paraffin and STM/MFR and K-tape. Plan of Care Dates Plan of Care Start Date 09/16/22 Plan of Care End Date 10/21/22 Electronically Signed by: Sarah Queen, PT 09/21/22 9044 If you are in agreement with this Plan of Care, please return a signed and dated copy. I have reviewed this Plan of Care and certify that the skilled therapy services above are required to meet the patient?s needs. Physician Signature Date Printed Name and Credentials Clinical Instructor Signature Printed Name and Credentials
--- NOTE | 2022-09-16 16:17 | PT.OTN ---
Current Diagnoses Acquired absence of left thumb (09/16/22) Physical Therapy Treatment Note PT-OP-A Visit Information Start: 08/05/22 19:16 Freq: Status: Active Protocol: Document 09/16/22 11:24 LRN (Rec: 09/16/22 12:16 LRN [id number]) Out-Patient Physical Therapy Visit Information Visit Information Visit Type Progress Note Visit Start Time 11:24 Visit Stop Time 12:04 Total Visit Minutes 40 Visit Number 7 Evaluation Information Evaluation Date 08/06/22 Precautions Precautions Neck pain, hypothyroid, hiatel hernia PT-OP-B Current Condition Start: 08/05/22 19:16 Freq: Status: Active Protocol: Document 08/06/22 08:04 LRN (Rec: 08/06/22 08:57 LRN [id number]) Current Condition History of Current Condition Onset Date 01/02/22 Current Complaints Sensitivity of distal R thumb. 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 Pt reports being very sensitive at the distal L thumb to hopes to decrease thumb sensitivity. Sensitive is greatest at ends of scar and along the scar surface, reporting a tickly feeling on mostly the dorsal surface of the L thumb. States there are no precautions to treatment. New skin growth after surgery healed at the end of Jan 2022 . Pt reported thumbnail removed 06/21/22 has healed completely and skin is intact. Prior Treatments and Tests Hand therapy starting 02/2022 for 6 visits. Treatment of ROM and desensitization. No precautions. Future Testing and Treatments Planned Next MD appt -1/week for the next 2 weeks. Treatment Goals Patient/Caregiver Goals Pt goal is desensitization of the thumb to help lessen feeling of tickle when picking up a piece of paper. 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 PT-OP-C Subjective Start: 08/05/22 19:16 Freq: Status: Active Protocol: Document 09/16/22 11:24 LRN (Rec: 09/16/22 12:16 LRN [id number]) OP-PT Subjective Patient Comments Patient Comments Getting better all the time. Notices L distal thumb isn't as tickly as it was a month ago. One spot tissue is not moving well. States there is one area along the well healed scar that is irritating, ticklish, not really tingly. Patient Reported Progress Improving Patient Questionnaires Quick Dash- Upper Extremity Quick Dash UE Score 47.72 Quick Dash UE Impairment 40 to 59% Impaired (Score 40- 59) PT-OP-H Neuro Start: 08/05/22 19:16 Freq: Status: Active Protocol: Document 08/06/22 08:04 LRN (Rec: 08/06/22 08:57 LRN [id number]) Sensation Evaluation Gross Sensation Gross Sensation Right UE Impaired Sensation Description Hyperesthesia Comments Summary Comments Normal sensation at thumb except at scar and small area of edema. PT-OP-J Posture/Palpation/Skin Start: 08/05/22 19:16 Freq: Status: Active Protocol: Document 08/12/22 15:04 LRN (Rec: 08/12/22 16:39 LRN [id number]) Palpation Assessment Location R thumb Palpation Location Tip of thumb where thumbnail is. Palpation Details No pain, good skin coloring. PT-OP-K Range of Motion Start: 08/05/22 19:16 Freq: Status: Active Protocol: Document 08/06/22 08:04 LRN (Rec: 08/06/22 08:57 LRN [id number]) Wrist Goniometric Range of Motion Wrist Right Wrist ROM WFL Yes Flexion Active (degrees) 70 Extension Active (degrees) 58 Ulnar Deviation Active (degrees) 30 Radial Deviation Active (degrees) 20 Left Wrist ROM WFL Yes Flexion Active (degrees) 70 Extension Active (degrees) 58 Ulnar Deviation Active (degrees) 30 Radial Deviation Active (degrees) 30 Thumb Goniometric Range of Motion Thumb Right Thumb ROM WFL Yes MCP Flexion Active (degrees) 58 CMC Extension Active (degrees) 20 Comments R MCP: ext lacks 8 deg's to full extension. CMC AB: 42 deg's Left MCP Flexion Active (degrees) 50 MCP Extension Active (0 degrees) 0 H CMC Extension Active (degrees) 34 Comments CMC AB: 66 deg's PT-OP-M Strength Start: 08/05/22 19:16 Freq: Status: Active Protocol: Document 08/06/22 08:04 LRN (Rec: 08/06/22 08:57 LRN [id number]) Finger/Thumb Strength Finger Manual Muscle Testing Right Thumb Flexion (fingers C8) 5 Normal Extension (thumb C8) 5 Normal Adduction 5 Normal Abduction (fingers T1) 5 Normal Left Thumb Flexion (fingers C8) 5 Normal Extension (thumb C8) 5 Normal Adduction 5 Normal Abduction (fingers T1) 5 Normal Hand Erector Operator/Pinch Strength Hand Dominance Hand Dominance Right PT-OP-Q Treatments Start: 08/05/22 19:16 Freq: Status: Active Protocol: Document 09/16/22 11:24 LRN (Rec: 09/16/22 12:16 LRN [id number]) Therapeutic Exercises Sitting Exercises Opposition ROM Sitting Exercise Name Opposition thumb to digits Side left L IP jt flex/ext Sitting Exercise Name L IP jt flex/ext Side left Reps/Minutes 15x 2 Comments While on Paraffin Wax CMC jt flex/ext Sitting Exercise Name CMC jt flex/ext Side left Reps/Minutes 15x 2 Comments While on Paraffin Wax Manual Therapy Treatment Soft Tissue Mobilization L thumb Body Location Healed scar - areas of restriction. Mobilization Type Myofascial Release Intensity/Depth Superficial to moderate Body Position Sitting Comments Added STM of twisting and zig/ zag of healsed scar. Taping L thumb scar Body Location L thumb scar (plantar and medially) Treatment Focus 2 narrow I-strips to Improve mobility Type of Tape Kinesio Tape Skin Inspection Healthy and intact Comments Issued 1 I-strip of K-tape for pt to self apply at home. Reviewed max day wear of 5 days with 1 day rest between application. Manual Techniques Desensitization Type Hand gliding in rice Body Location L thumb Body Position Sitting Reps/Duration 3' Comments rice Self-Care/Home Management Treatment Education Patient Education Pain Management Other Education Educated pt in desensitization methods for home: Use of rice, beans, hot/cold ( increase use at home), different materials). PT-OP-R Modalities Start: 08/05/22 19:16 Freq: Status: Active Protocol: Document 09/16/22 11:24 LRN (Rec: 09/16/22 12:16 LRN [id number]) Paraffin Bath Treatment Left Hand Treatment Technique Dip-immersion Number Wax Layers (layers) 8 Duration (minutes) 5 Patient Tolerance Good PT-OP-T Assessment and Plan Start: 08/05/22 19:16 Freq: Status: Active Protocol: Document 09/16/22 11:24 LRN (Rec: 09/16/22 12:16 LRN [id number]) Physical Therapy Assessment Rehab Potential Rehabilitation Potential Good Evaluation Complexity Number of Personal Factors/Comorbidities 1-2 Number of Body Systems Impaired 1-2 Clinical Presentation at Evaluation Evolving Impairments Impairments Activity Tolerance,Sensation Goals Two Impairment Increased sensitivity at distal end of L amputated thumb-tickle sensation. Impairment UE Quickdash score 20 (20-39% impaired, score 20-39) 09/16/22: UE Quickdash score 47 (40-59% impaired, score 40- 59) Short Term Goal (STG) Decrease sensitivity of the L thumb with decrease tickle feeling when touching objects. Pt goal is desensitization of the thumb to help lessen feeling of tickle when picking up a piece of paper. 09/16/22: Level of irritation of L thumb is 7/10, he reports initially it was a 9/10. UE Quickdash score is 47 (40-59% impaired, score 40-59). STG Duration 09/03/22 progressing 09/16/22 Fpc Goal (LTG) Pt will report less irritation towards picking up a piece of paper with L thumb. 09/16/22: Pt reports less irritation in L thumb and notes only 1 area that is irritating (notes along healed scar ~IP jt). LTG Duration 09/20/22 progressing 09/16/22 One Impairment Pt lacks self care HEP Short Term Goal (STG) Pt will be educated in self STM, use of K-tape to improve scar mobility of distal L thumb. 08/12/22: Pt I/S in self STM to improve scar mobility during MFR treatment. 08/16/22: Educated pt in self K-tape application. 09/16/22: Pt reports knowledge of proper use self K-tape and proper wear time/removal. STG Duration 08/13/22 (09/16/22: MET GOAL) Lead Pressman Goal (LTG) Pt will be educated and independent with self care pain management techniques to decrease sensitivity of L thumb (materal desensitization ). 08/12/22: Pt educated in self care contrast bath treatment. 09/16/22: Pt educated in use of rice, beans, materials to desensitize and reviewed use of hot/cold. LTG Duration 09/20/22 progressed 08/17/22. Assessment Summary Assessment Pt is progressing in improving L distal thumb scar mobility and sensitivity. He notes continual slow improvement although his recent UE Quickdash score indicates worsening of function; possibly due to change in his frame of reference of L hand usage. The pt would like to continue therapy to maximize improvement in sensation of the thumb now that he has only one small area where the tickling is felt with use of his hand. I feel this would be appropriate for another 4-5 weeks. Physical Therapy Plan Frequency and Duration Frequency of Treatment 1x/Week Plan of Care Start Date 09/16/22 Plan of Care End Date 10/21/22 Therapeutic Interventions Therapeutic Interventions Home Exercise Program,Manual Therapy,Self-Care/Home Management,Soft Tissue Mobilization,Taping, Therapeutic Exercises Modalities Cold Pack/Ice Massage,Hot Packs,Paraffin Bath Next Visit Focus/Plan Next Note Type Treatment Note Next Visit Plan Cont 1x/week. Next: Try desensitization with beans. Star K-tape at area of most irritation on L thumb scar. Treat and self care education: turning of objects (?cards), desensitization with progressive desensitization with rice, beans, material. Cont paraffin and STM/MFR and K-tape.
--- NOTE | 2022-09-21 14:29 | PT.OTN ---
Current Diagnoses Acquired absence of left thumb (09/21/22) Physical Therapy Treatment Note PT-OP-A Visit Information Start: 08/05/22 19:16 Freq: Status: Active Protocol: Document 09/21/22 13:30 LRN (Rec: 09/21/22 14:28 LRN [id number]) Out-Patient Physical Therapy Visit Information Visit Information Visit Type Treatment Note Visit Start Time 13:31 Visit Stop Time 14:13 Total Visit Minutes 42 Visit Number 8 Evaluation Information Evaluation Date 08/06/22 Precautions Precautions Neck pain, hypothyroid, hiatel hernia PT-OP-B Current Condition Start: 08/05/22 19:16 Freq: Status: Active Protocol: Document 08/06/22 08:04 LRN (Rec: 08/06/22 08:57 LRN [id number]) Current Condition History of Current Condition Onset Date 01/02/22 Current Complaints Sensitivity of distal R thumb. 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 Pt reports being very sensitive at the distal L thumb to hopes to decrease thumb sensitivity. Sensitive is greatest at ends of scar and along the scar surface, reporting a tickly feeling on mostly the dorsal surface of the L thumb. States there are no precautions to treatment. New skin growth after surgery healed at the end of Jan 2022 . Pt reported thumbnail removed 06/21/22 has healed completely and skin is intact. Prior Treatments and Tests Hand therapy starting 02/2022 for 6 visits. Treatment of ROM and desensitization. No precautions. Future Testing and Treatments Planned Next MD appt -1/week for the next 2 weeks. Treatment Goals Patient/Caregiver Goals Pt goal is desensitization of the thumb to help lessen feeling of tickle when picking up a piece of paper. 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 PT-OP-C Subjective Start: 08/05/22 19:16 Freq: Status: Active Protocol: Document 09/21/22 13:30 LRN (Rec: 09/21/22 14:28 LRN [id number]) OP-PT Subjective Patient Comments Patient Comments States same. Getting surgery on the L thumb to remove the thumbnail on 10/07/22. PT-OP-H Neuro Start: 08/05/22 19:16 Freq: Status: Active Protocol: Document 08/06/22 08:04 LRN (Rec: 08/06/22 08:57 LRN [id number]) Sensation Evaluation Gross Sensation Gross Sensation Right UE Impaired Sensation Description Hyperesthesia Comments Summary Comments Normal sensation at thumb except at scar and small area of edema. PT-OP-J Posture/Palpation/Skin Start: 08/05/22 19:16 Freq: Status: Active Protocol: Document 08/12/22 15:04 LRN (Rec: 08/12/22 16:39 LRN [id number]) Palpation Assessment Location R thumb Palpation Location Tip of thumb where thumbnail is. Palpation Details No pain, good skin coloring. PT-OP-K Range of Motion Start: 08/05/22 19:16 Freq: Status: Active Protocol: Document 08/06/22 08:04 LRN (Rec: 08/06/22 08:57 LRN [id number]) Wrist Goniometric Range of Motion Wrist Right Wrist ROM WFL Yes Flexion Active (degrees) 70 Extension Active (degrees) 58 Ulnar Deviation Active (degrees) 30 Radial Deviation Active (degrees) 20 Left Wrist ROM WFL Yes Flexion Active (degrees) 70 Extension Active (degrees) 58 Ulnar Deviation Active (degrees) 30 Radial Deviation Active (degrees) 30 Thumb Goniometric Range of Motion Thumb Right Thumb ROM WFL Yes MCP Flexion Active (degrees) 58 CMC Extension Active (degrees) 20 Comments R MCP: ext lacks 8 deg's to full extension. CMC AB: 42 deg's Left MCP Flexion Active (degrees) 50 MCP Extension Active (0 degrees) 0 H CMC Extension Active (degrees) 34 Comments CMC AB: 66 deg's PT-OP-M Strength Start: 08/05/22 19:16 Freq: Status: Active Protocol: Document 08/06/22 08:04 LRN (Rec: 08/06/22 08:57 LRN [id number]) Finger/Thumb Strength Finger Manual Muscle Testing Right Thumb Flexion (fingers C8) 5 Normal Extension (thumb C8) 5 Normal Adduction 5 Normal Abduction (fingers T1) 5 Normal Left Thumb Flexion (fingers C8) 5 Normal Extension (thumb C8) 5 Normal Adduction 5 Normal Abduction (fingers T1) 5 Normal Hand Parts Order And Stock Clerk/Pinch Strength Hand Dominance Hand Dominance Right PT-OP-Q Treatments Start: 08/05/22 19:16 Freq: Status: Active Protocol: Document 09/21/22 13:30 LRN (Rec: 09/21/22 14:28 LRN [id number]) Therapeutic Exercises Sitting Exercises Opposition ROM Sitting Exercise Name Opposition thumb to digits Side left L IP jt flex/ext Sitting Exercise Name L IP jt flex/ext Side left Reps/Minutes 15x 2 Comments While on Paraffin Wax CMC jt flex/ext Sitting Exercise Name CMC jt flex/ext Side left Reps/Minutes 15x 2 Comments While on Paraffin Wax Manual Therapy Treatment Soft Tissue Mobilization L thumb Body Location Healed scar - areas of restriction. Mobilization Type Myofascial Release Intensity/Depth Superficial to moderate Body Position Sitting Comments Added STM of twisting and zig/ zag of healsed scar. Taping L thumb scar Body Location L thumb medially above IP jt at scar of greatest sensitivity s/p massage. Treatment Focus 1/2 cm width Star tape at area of greatest sensitivity Type of Tape Kinesio Tape Skin Inspection Healthy and intact Comments Reviewed max day wear of 5 days with 1 day rest between application. Neuro Re-Education Treatment Other Activities Desensitization L thumb Details Moving L thumb through medium of beans <> rice, 1' each Reps/Duration 1' x 1 rice, then 1' each of alternating btn beans, rice x 3 sets Comments Extra time taken for coordinating/educating the alternating between beans and rice. Pt felt more sensation with beans. PT-OP-R Modalities Start: 08/05/22 19:16 Freq: Status: Active Protocol: Document 09/21/22 13:30 LRN (Rec: 09/21/22 14:28 LRN [id number]) Paraffin Bath Treatment Left Hand Treatment Technique Dip-immersion Number Wax Layers (layers) 8 Duration (minutes) 5 Patient Tolerance Good PT-OP-T Assessment and Plan Start: 08/05/22 19:16 Freq: Status: Active Protocol: Document 09/21/22 13:30 LRN (Rec: 09/21/22 14:28 [facility] [id number]) Physical Therapy Assessment Goals Two Impairment Increased sensitivity at distal end of L amputated thumb-tickle sensation. Impairment UE Quickdash score 20 (20-39% impaired, score 20-39) 09/16/22: UE Quickdash score 47 (40-59% impaired, score 40- 59) Short Term Goal (STG) Decrease sensitivity of the L thumb with decrease tickle feeling when touching objects. Pt goal is desensitization of the thumb to help lessen feeling of tickle when picking up a piece of paper. 09/16/22: Level of irritation of L thumb is 7/10, he reports initially it was a 9/10. UE Quickdash score is 47 (40-59% impaired, score 40-59). STG Duration 09/03/22 progressing 09/16/22 Blind Cleaner Goal (LTG) Pt will report less irritation towards picking up a piece of paper with L thumb. 09/16/22: Pt reports less irritation in L thumb and notes only 1 area that is irritating (notes along healed scar ~IP jt). LTG Duration 09/20/22 progressing 09/16/22 One Impairment Pt lacks self care HEP Short Term Goal (STG) Pt will be educated in self STM, use of K-tape to improve scar mobility of distal L thumb. 08/12/22: Pt I/S in self STM to improve scar mobility during MFR treatment. 08/16/22: Educated pt in self K-tape application. 09/16/22: Pt reports knowledge of proper use self K-tape and proper wear time/removal. STG Duration 08/13/22 (09/16/22: MET GOAL) Mcfp Goal (LTG) Pt will be educated and independent with self care pain management techniques to decrease sensitivity of L thumb (materal desensitization ). 08/12/22: Pt educated in self care contrast bath treatment. 09/16/22: Pt educated in use of rice, beans, materials to desensitize and reviewed use of hot/cold. LTG Duration 09/20/22 progressed 08/17/22. Physical Therapy Plan Frequency and Duration Frequency of Treatment 1x/Week Plan of Care Start Date 09/16/22 Plan of Care End Date 10/21/22 Next Visit Focus/Plan Next Note Type Treatment Note Next Visit Plan Cont 1x/week for 2 more weeks (pt having surgery on thumb . Assess response to K- tape. Desensitization with beans/ rice, ?material. Star K-tape at area of most irritation on L thumb scar. Try adding turning of objects (?cards). Cont paraffin and STM/MFR and K-tape.
--- NOTE | 2022-10-01 10:41 | PT.OTN ---
Current Diagnoses Acquired absence of left thumb (10/01/22) Physical Therapy Treatment Note PT-OP-A Visit Information Start: 08/05/22 19:16 Freq: Status: Active Protocol: Document 10/01/22 08:52 LRN (Rec: 10/01/22 09:35 LRN [id number]) Out-Patient Physical Therapy Visit Information Visit Information Visit Type Treatment Note Visit Start Time 08:52 Visit Stop Time 09:31 Total Visit Minutes 39 Visit Number 9 Evaluation Information Evaluation Date 08/06/22 Precautions Precautions Neck pain, hypothyroid, hiatel hernia PT-OP-B Current Condition Start: 08/05/22 19:16 Freq: Status: Active Protocol: Document 08/06/22 08:04 LRN (Rec: 08/06/22 08:57 LRN [id number]) Current Condition History of Current Condition Onset Date 01/02/22 Current Complaints Sensitivity of distal R thumb. 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 Pt reports being very sensitive at the distal L thumb to hopes to decrease thumb sensitivity. Sensitive is greatest at ends of scar and along the scar surface, reporting a tickly feeling on mostly the dorsal surface of the L thumb. States there are no precautions to treatment. New skin growth after surgery healed at the end of Jan 2022 . Pt reported thumbnail removed 06/21/22 has healed completely and skin is intact. Prior Treatments and Tests Hand therapy starting 02/2022 for 6 visits. Treatment of ROM and desensitization. No precautions. Future Testing and Treatments Planned Next MD appt -1/week for the next 2 weeks. Treatment Goals Patient/Caregiver Goals Pt goal is desensitization of the thumb to help lessen feeling of tickle when picking up a piece of paper. 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 PT-OP-C Subjective Start: 08/05/22 19:16 Freq: Status: Active Protocol: Document 10/01/22 08:52 LRN (Rec: 10/01/22 09:35 LRN [id number]) OP-PT Subjective Patient Comments Patient Comments Getting less sensitive. Tiny bit less sensitive to parts picker papers. States he shuffles cards every night at dinner. PT-OP-H Neuro Start: 08/05/22 19:16 Freq: Status: Active Protocol: Document 08/06/22 08:04 LRN (Rec: 08/06/22 08:57 LRN [id number]) Sensation Evaluation Gross Sensation Gross Sensation Right UE Impaired Sensation Description Hyperesthesia Comments Summary Comments Normal sensation at thumb except at scar and small area of edema. PT-OP-J Posture/Palpation/Skin Start: 08/05/22 19:16 Freq: Status: Active Protocol: Document 08/12/22 15:04 LRN (Rec: 08/12/22 16:39 LRN [id number]) Palpation Assessment Location R thumb Palpation Location Tip of thumb where thumbnail is. Palpation Details No pain, good skin coloring. PT-OP-K Range of Motion Start: 08/05/22 19:16 Freq: Status: Active Protocol: Document 08/06/22 08:04 LRN (Rec: 08/06/22 08:57 LRN [id number]) Wrist Goniometric Range of Motion Wrist Right Wrist ROM WFL Yes Flexion Active (degrees) 70 Extension Active (degrees) 58 Ulnar Deviation Active (degrees) 30 Radial Deviation Active (degrees) 20 Left Wrist ROM WFL Yes Flexion Active (degrees) 70 Extension Active (degrees) 58 Ulnar Deviation Active (degrees) 30 Radial Deviation Active (degrees) 30 Thumb Goniometric Range of Motion Thumb Right Thumb ROM WFL Yes MCP Flexion Active (degrees) 58 CMC Extension Active (degrees) 20 Comments R MCP: ext lacks 8 deg's to full extension. CMC AB: 42 deg's Left MCP Flexion Active (degrees) 50 MCP Extension Active (0 degrees) 0 H CMC Extension Active (degrees) 34 Comments CMC AB: 66 deg's PT-OP-M Strength Start: 08/05/22 19:16 Freq: Status: Active Protocol: Document 08/06/22 08:04 LRN (Rec: 08/06/22 08:57 LRN [id number]) Finger/Thumb Strength Finger Manual Muscle Testing Right Thumb Flexion (fingers C8) 5 Normal Extension (thumb C8) 5 Normal Adduction 5 Normal Abduction (fingers T1) 5 Normal Left Thumb Flexion (fingers C8) 5 Normal Extension (thumb C8) 5 Normal Adduction 5 Normal Abduction (fingers T1) 5 Normal Hand Motion Graphics Artist/Pinch Strength Hand Dominance Hand Dominance Right PT-OP-Q Treatments Start: 08/05/22 19:16 Freq: Status: Active Protocol: Document 10/01/22 08:52 LRN (Rec: 10/01/22 09:35 LRN [id number]) Therapeutic Exercises Sitting Exercises Thumb AB/AD Sitting Exercise Name Thumb AB/AD Side left Reps/Minutes 30x Comments While on Paraffin Wax Opposition ROM Sitting Exercise Name Opposition thumb to digits Side left Reps/Minutes 2x L IP jt flex/ext Sitting Exercise Name L IP jt flex/ext Side left Reps/Minutes 30x Comments While on Paraffin Wax CMC jt flex/ext Sitting Exercise Name CMC jt flex/ext Side left Reps/Minutes 30x Comments While on Paraffin Wax Manual Therapy Treatment Soft Tissue Mobilization L thumb Body Location Healed scar - areas of restriction. Mobilization Type Myofascial Release Intensity/Depth Superficial to moderate Body Position Sitting Comments Added STM of twisting and zig/ zag of healsed scar. Taping L thumb scar Body Location L thumb medially above IP jt at scar of greatest sensitivity s/p massage. Treatment Focus 1/2 cm width Star tape at area of greatest sensitivity Type of Tape Kinesio Tape Skin Inspection Healthy and intact Comments Star tape at area of greatest sensitivity on top side of thumb. Reviewed max day wear of 5 days with 1 day rest between application. Manual Techniques Desensitization Type Shuffling of cards Body Location L thumb Body Position Sitting Reps/Duration 3' PT-OP-R Modalities Start: 08/05/22 19:16 Freq: Status: Active Protocol: Document 10/01/22 08:52 LRN (Rec: 10/01/22 09:35 LRN [id number]) Paraffin Bath Treatment Left Hand Treatment Technique Dip-immersion Number Wax Layers (layers) 8 Duration (minutes) 6 Patient Tolerance Good PT-OP-T Assessment and Plan Start: 08/05/22 19:16 Freq: Status: Active Protocol: Document 10/01/22 08:52 LRN (Rec: 10/01/22 09:35 LRN [id number]) Physical Therapy Assessment Goals Two Impairment Increased sensitivity at distal end of L amputated thumb-tickle sensation. Impairment UE Quickdash score 20 (20-39% impaired, score 20-39) 09/16/22: UE Quickdash score 47 (40-59% impaired, score 40- 59) Short Term Goal (STG) Decrease sensitivity of the L thumb with decrease tickle feeling when touching objects. Pt goal is desensitization of the thumb to help lessen feeling of tickle when picking up a piece of paper. 09/16/22: Level of irritation of L thumb is 7/10, he reports initially it was a 9/10. UE Quickdash score is 47 (40-59% impaired, score 40-59). STG Duration 09/03/22 progressing 09/16/22 Barge Pilot Goal (LTG) Pt will report less irritation towards picking up a piece of paper with L thumb. 09/16/22: Pt reports less irritation in L thumb and notes only 1 area that is irritating (notes along healed scar ~IP jt). LTG Duration 09/20/22 progressing 09/16/22 One Impairment Pt lacks self care HEP Short Term Goal (STG) Pt will be educated in self STM, use of K-tape to improve scar mobility of distal L thumb. 08/12/22: Pt I/S in self STM to improve scar mobility during MFR treatment. 08/16/22: Educated pt in self K-tape application. 09/16/22: Pt reports knowledge of proper use self K-tape and proper wear time/removal. STG Duration 08/13/22 (09/16/22: MET GOAL) Penitentiary Goal (LTG) Pt will be educated and independent with self care pain management techniques to decrease sensitivity of L thumb (materal desensitization ). 08/12/22: Pt educated in self care contrast bath treatment. 09/16/22: Pt educated in use of rice, beans, materials to desensitize and reviewed use of hot/cold. LTG Duration 09/20/22 progressed 08/17/22. Assessment Summary Assessment States the K-tape lasts 1 day on. Scar mobility slightly improved after manual therapy. Slow change in sensitivity. Physical Therapy Plan Frequency and Duration Frequency of Treatment 1x/Week Plan of Care Start Date 09/16/22 Plan of Care End Date 10/21/22 Next Visit Focus/Plan Next Note Type Discharge Summary Next Visit Plan DC to HEP next visit due to pt having surgery on thumb . Assess response to turning of objects (cards) and Star K-tape at area of most irritation on L thumb scar.. Desensitization with beans/ rice, ?material. Add flipping of paper to desensitize. Cont paraffin and STM/MFR and K-tape.
--- NOTE | 2022-10-05 16:17 | PT.OTN ---
Current Diagnoses Acquired absence of left thumb (10/05/22) Physical Therapy Treatment Note PT-OP-A Visit Information Start: 08/05/22 19:16 Freq: Status: Active Protocol: Document 10/05/22 14:21 LRN (Rec: 10/05/22 15:09 LRN [id number]) Out-Patient Physical Therapy Visit Information Visit Information Visit Type Treatment Note Visit Start Time 14:21 Visit Stop Time 15:00 Total Visit Minutes 39 Visit Number 10 Evaluation Information Evaluation Date 08/06/22 Precautions Precautions Neck pain, hypothyroid, hiatel hernia PT-OP-B Current Condition Start: 08/05/22 19:16 Freq: Status: Active Protocol: Document 08/06/22 08:04 LRN (Rec: 08/06/22 08:57 LRN [id number]) Current Condition History of Current Condition Onset Date 01/02/22 Current Complaints Sensitivity of distal R thumb. 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 Pt reports being very sensitive at the distal L thumb to hopes to decrease thumb sensitivity. Sensitive is greatest at ends of scar and along the scar surface, reporting a tickly feeling on mostly the dorsal surface of the L thumb. States there are no precautions to treatment. New skin growth after surgery healed at the end of Jan 2022 . Pt reported thumbnail removed 06/21/22 has healed completely and skin is intact. Prior Treatments and Tests Hand therapy starting 02/2022 for 6 visits. Treatment of ROM and desensitization. No precautions. Future Testing and Treatments Planned Next MD appt -1/week for the next 2 weeks. Treatment Goals Patient/Caregiver Goals Pt goal is desensitization of the thumb to help lessen feeling of tickle when picking up a piece of paper. 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 PT-OP-C Subjective Start: 08/05/22 19:16 Freq: Status: Active Protocol: Document 10/05/22 14:21 LRN (Rec: 10/05/22 15:09 LRN [id number]) OP-PT Subjective Patient Comments Patient Comments States sensitivity of the L thumb is much less, mainly at one spot on the cephalic side of the thumb. He rates his level of irritation of L thumb as 5/10. Pt is okay with DC to HEP as he has an upcoming surgery of the thumb to remove the growing thumbnail. Patient Questionnaires Quick Dash- Upper Extremity Quick Dash UE Score 34.09 Quick Dash UE Impairment 20 to 39% Impaired (Score 20- 39) PT-OP-H Neuro Start: 08/05/22 19:16 Freq: Status: Active Protocol: Document 08/06/22 08:04 LRN (Rec: 08/06/22 08:57 LRN [id number]) Sensation Evaluation Gross Sensation Gross Sensation Right UE Impaired Sensation Description Hyperesthesia Comments Summary Comments Normal sensation at thumb except at scar and small area of edema. PT-OP-J Posture/Palpation/Skin Start: 08/05/22 19:16 Freq: Status: Active Protocol: Document 08/12/22 15:04 LRN (Rec: 08/12/22 16:39 LRN [id number]) Palpation Assessment Location R thumb Palpation Location Tip of thumb where thumbnail is. Palpation Details No pain, good skin coloring. PT-OP-K Range of Motion Start: 08/05/22 19:16 Freq: Status: Active Protocol: Document 08/06/22 08:04 LRN (Rec: 08/06/22 08:57 LRN [id number]) Wrist Goniometric Range of Motion Wrist Right Wrist ROM WFL Yes Flexion Active (degrees) 70 Extension Active (degrees) 58 Ulnar Deviation Active (degrees) 30 Radial Deviation Active (degrees) 20 Left Wrist ROM WFL Yes Flexion Active (degrees) 70 Extension Active (degrees) 58 Ulnar Deviation Active (degrees) 30 Radial Deviation Active (degrees) 30 Thumb Goniometric Range of Motion Thumb Right Thumb ROM WFL Yes MCP Flexion Active (degrees) 58 CMC Extension Active (degrees) 20 Comments R MCP: ext lacks 8 deg's to full extension. CMC AB: 42 deg's Left MCP Flexion Active (degrees) 50 MCP Extension Active (0 degrees) 0 H CMC Extension Active (degrees) 34 Comments CMC AB: 66 deg's PT-OP-M Strength Start: 08/05/22 19:16 Freq: Status: Active Protocol: Document 08/06/22 08:04 LRN (Rec: 08/06/22 08:57 LRN [id number]) Finger/Thumb Strength Finger Manual Muscle Testing Right Thumb Flexion (fingers C8) 5 Normal Extension (thumb C8) 5 Normal Adduction 5 Normal Abduction (fingers T1) 5 Normal Left Thumb Flexion (fingers C8) 5 Normal Extension (thumb C8) 5 Normal Adduction 5 Normal Abduction (fingers T1) 5 Normal Hand News Clerk/Pinch Strength Hand Dominance Hand Dominance Right PT-OP-Q Treatments Start: 08/05/22 19:16 Freq: Status: Active Protocol: Document 10/05/22 14:21 LRN (Rec: 10/05/22 15:09 LRN [id number]) Therapeutic Exercises Sitting Exercises Thumb AB/AD Sitting Exercise Name Thumb AB/AD Side left Reps/Minutes 30x Comments While on Paraffin Wax L IP jt flex/ext Sitting Exercise Name L IP jt flex/ext Side left Reps/Minutes 30x Comments While on Paraffin Wax and after Paraffin wax. CMC jt flex/ext Sitting Exercise Name CMC jt flex/ext Side left Reps/Minutes 30x Comments While on Paraffin Wax Manual Therapy Treatment Soft Tissue Mobilization L thumb Body Location Healed scar - areas of restriction. Mobilization Type Myofascial Release Intensity/Depth Superficial to moderate Body Position Sitting Comments Added STM of twisting and zig/ zag of healed scar. Joint Mobilizations L thumb IP jt Joint L thumb IP jt flexion Direction PA Body Position Sitting Reps/Duration 3' Taping L thumb scar Body Location L thumb medially above IP jt at scar of greatest sensitivity s/p massage. Treatment Focus 1/2 cm width Star tape at area of greatest sensitivity Type of Tape Kinesio Tape Skin Inspection Healthy and intact Comments Star tape at area of greatest sensitivity on top side of thumb. Reviewed max day wear of 5 days with 1 day rest between application. Self-Care/Home Management Treatment Activities Self-Care/Home Management Activities Verbal review of Home Self Care: STM to L thumb, desensitization techniques, L thumb ROM to improve scar tissue mobility. PT-OP-R Modalities Start: 08/05/22 19:16 Freq: Status: Active Protocol: Document 10/01/22 08:52 LRN (Rec: 10/01/22 09:35 LRN [id number]) Paraffin Bath Treatment Left Hand Treatment Technique Dip-immersion Number Wax Layers (layers) 8 Duration (minutes) 6 Patient Tolerance Good PT-OP-T Assessment and Plan Start: 08/05/22 19:16 Freq: Status: Active Protocol: Document 10/05/22 14:21 LRN (Rec: 10/05/22 15:09 JOSE CRUZ [id number]) Physical Therapy Assessment Goals Two Impairment Increased sensitivity at distal end of L amputated thumb-tickle sensation. Impairment UE Quickdash score 20 (20-39% impaired, score 20-39) 09/16/22: UE Quickdash score 47 (40-59% impaired, score 40- 59) Short Term Goal (STG) Decrease sensitivity of the L thumb with decrease tickle feeling when touching objects. Pt goal is desensitization of the thumb to help lessen feeling of tickle when picking up a piece of paper. 09/16/22: Level of irritation of L thumb is 7/10, he reports initially it was a 9/10. UE Quickdash score is 47 (40-59% impaired, score 40-59). 10/05/22: Level of irritation of L thumb rated 5/10. STG Duration 09/03/22 (10/05/22: MET GOAL) Instructional Systems Design Consultant Goal (LTG) Pt will report less irritation towards picking up a piece of paper with L thumb. 09/16/22: Pt reports less irritation in L thumb and notes only 1 area that is irritating (notes along healed scar ~IP jt). 10/05/22: Less irritation of L thumb, still present. UE Quickdash score is 34.09 (20- 39% impaired). LTG Duration 09/20/22 (10/05/22: MET GOAL) One Impairment Pt lacks self care HEP Short Term Goal (STG) Pt will be educated in self STM, use of K-tape to improve scar mobility of distal L thumb. 08/12/22: Pt I/S in self STM to improve scar mobility during MFR treatment. 08/16/22: Educated pt in self K-tape application. 09/16/22: Pt reports knowledge of proper use self K-tape and proper wear time/removal. STG Duration 08/13/22 (09/16/22: MET GOAL) Instructional Systems Design Consultant Goal (LTG) Pt will be educated and independent with self care pain management techniques to decrease sensitivity of L thumb (materal desensitization ). 08/12/22: Pt educated in self care contrast bath treatment. 09/16/22: Pt educated in use of rice, beans, materials to desensitize and reviewed use of hot/cold. 10/05/22: Pt educated in self STM on well healed scar and L thumb IP jt flexion stretch to tissues LTG Duration 09/20/22 (10/05/22: MET GOAL) Assessment Summary Assessment Pt has been seen for 10 visit for manual therapy, desensitization of the L thumb and AROM of hand, parrafin dip. The pt has improved in function per UE quickdash score showing improvement from 40-59% impaired to 20-39 impaired. The sensitivity of the L thumb has decreased from an irritation 9/10 to 5/10, ( 0 is no irritation and 10 is worst possible irritation). The pt is having surgery on his L thumb in a couple days; therefore he is being discharged from therapy to an independent self care HEP. I expect the pt to be able to progress on his own to decrease irritation of the L thumb over time once he recovers from his scheduled surgery in a couple days. Physical Therapy Plan Discharge Physical Therapy Discharge Reasons Goals Met Discharge Comments Pt has ongoing sensitivity of the L thumb tip and restriction of skin mobility in a small area of the well healed scar. Thank you for your referral, I would be more than happy to work with this pleasant individual again. Next Visit Focus/Plan Next Note Type Discharge Summary
== END 2022-10-08 12:23 | disposition home or self-care (01) ==
LOC: PHYS 14:15
PROVIDERS: Family Provider Family Medicine; PCP Family Medicine; Referring Provider Family Medicine; Visit Provider Family Medicine
DX: Z89.012 Acquired absence of left thumb (principal)
CPT/HCPCS: 97018; 97110; 97112; 97140; 97162; 97535

== ENCOUNTER → 2022-12-10 15:13 | Outpatient (CLI) | payer OTHER, SELFPAY | PROVIDERS: Family Provider Family Medicine; PCP Family Medicine; Referring Provider Family Medicine; Visit Provider Family Medicine | DX: Z23 Encounter for immunization (principal) | CPT/HCPCS: 90471; 90686 ==

== ENCOUNTER → 2023-03-22 07:37 | Outpatient (CLI) | payer OTHER, SELFPAY ==
[2023-03-22 08:40] LABS: Add Manual Diff / Slide Review NO; Basophils Absolute Auto 100 /uL (0-100); Basophils Percent Auto 1.2 % (0-2); Eosinophils Absolute Auto 300 /uL (0-450); Eosinophils Percent Auto 4.1 % (2-4); Hematocrit 47.5 % (41-53); Hemoglobin 16.4 g/dL (13.5-17.5); Lymphocytes Absolute Auto 2000 /uL (1100-4500); Lymphocytes Percent Auto 28.5 % (25-40); Mean Corpuscular HGB Conc 34.5 % (30-36); Mean Corpuscular Hemoglobin 28.7 PG (26-34); Mean Corpuscular Volume 83.1 fL (80-100); Monocytes Absolute Auto 800 /uL (0-900); Monocytes Percent Auto 11.1 % (3-14); Neutrophils Absolute Auto 3900 /uL (1500-7000); Neutrophils Percent Auto 55.1 % (50-75); Platelet Count 215 X10^3/uL (150-400); Red Blood Cell Count 5.72 X10^6/uL (4.5-5.9); Red Cell Distribution Width 15.5 % (11.6-14.8); White Blood Cell Count 7.1 X10^3/uL (4.5-11.0)
[2023-03-22 09:07] LABS: Albumin 3.9 g/dL (3.5-5.0); BUN Creatinine Ratio 16.2 (6-22); Blood Urea Nitrogen 17 mg/dL (9-20); Calcium 9.6 mg/dL (8.4-10.2); Carbon Dioxide 27 mmol/L (22-32); Chloride 104 mmol/L (98-107); Estimated Glomerular Filt Rate > 60 mL/min (>60); Glucose 86 mg/dL (80-110); HEMOLYSIS < 15 (0-50); Potassium 4.3 mmol/L (3.4-5.1); Sodium 137 mmol/L (137-145)
[2023-03-22 09:14] LABS: Prealbumin 29.7 mg/dL (17.6-36.0)
[2023-03-22 09:21] LABS: Hemoglobin A1C% w Est Avg Glu 5.4 % (4.0-6.0)
[2023-03-22 10:20] LABS: Vitamin D 25 Hydroxy (D3) 67.4 ng/mL (30.0-100.0)
== END ==
LOC: LAB 07:39
PROVIDERS: Family Provider Family Medicine; PCP Family Medicine; Referring Provider Orthopaedic Surgery Adult Reconstructive Orthopaedic Surgery; Visit Provider Orthopaedic Surgery Adult Reconstructive Orthopaedic Surgery
DX: Z01.818 Encounter for other preprocedural examination (principal); R77.0 Abnormality of albumin; E55.9 Vitamin D deficiency, unspecified; Z01.812 Encounter for preprocedural laboratory examination; R73.9 Hyperglycemia, unspecified
CPT/HCPCS: 36415; 80048; 82040; 82306; 83036; 84134; 85025; 93005

== ENCOUNTER 2023-04-06 06:18 | Day surgery (SDC) | payer OTHER, SELFPAY ==
[2023-04-06] VITALS (19 sets, daily range): BP systolic 103–151; BP diastolic 70–98; PULSE 65–93; RESP 12–18; TEMP 36.1–36.9; O2SAT 93–98; BMI 28.1; BMI 28.6
--- NOTE | 2023-04-06 | DI.RAD.S_ITS ---
PROCEDURE: XR HIP W PEL IF DONE RT 2V INDICATIONS: RT HIP SURGERY TECHNIQUE: AP pelvis and lateral view of the hip acquired. COMPARISON: [facility], CR, XR PELVIS WITH BILATERAL LATERAL HIPS, 03/21/2023, 18:02. [facility], CR, XR HIP W PEL IF DONE RT 2V, 04/06/2023, 9:10. FINDINGS: Bones: Patient is status post right total hip arthroplasty, with hardware components in expected positions. The hip joint appears congruent. The visualized bony structures appear intact. Soft tissues: Overlying postoperative changes are noted. No suspicious soft tissue densities. IMPRESSION: Expected post-operative appearance of a right total hip arthroplasty. Approved by: Arnulfo Veliz M.D. on 04/06/2023 at 11:37
--- NOTE | 2023-04-06 06:00 | DI.RAD.S_ITS ---
PROCEDURE: XR HIP W PEL IF DONE RT 2V INDICATIONS: CHRISTINA TECHNIQUE: 6 intraoperative fluoroscopic images of pelvis and right hip were obtained. COMPARISON: 12/29/2021. FINDINGS: Intraoperative fluoroscopic images shows right total hip arthroplasty in progress. IMPRESSION: Fluoro guidance was provided intraoperatively for right total hip arthroplasty. Dictated by: Karan Mack M.D. on 04/06/2023 at 11:06 Approved by: Karan Mack M.D. on 04/06/2023 at 11:07
[2023-04-06] MEDS: LACTATED RINGERS 1,000 ML 42 ML IV (06:48)
[2023-04-06] MEDS: ACETAMINOPHEN 325 MG TABLET 975 MG PO (06:55)
[2023-04-06] MEDS: MELOXICAM 7.5 MG TABLET PO (06:55)
[2023-04-06] MEDS: VANCOMYCIN 1,000 MG/200 ML PIGGYBACK 200 MG IV (06:55)
--- NOTE | 2023-04-06 07:44 | PM.PREOP ---
Pre-operative Note Interval Note History & Physical reviewed/Exam performed by Physician: Yes Changes to H&P: No
[2023-04-06] MEDS: CEFAZOLIN 2 GM/100 ML PREMIX 100 ML IV ×2 (08:35→18:09)
[2023-04-06] MEDS: TRANEXAMIC ACID 1,000 MG VIAL 1000 MG INJ ×2 (08:38→09:55)
--- NOTE | 2023-04-06 08:53 | SUR.OPER ---
Supine on padded [place] table with bilateral legs secured in padded positioning boots and suspended in positioning spars, operative leg in traction per surgeon. Head on one pillow. Arm on non-operative side secured on padded armboard <90 degrees abduction. Arm on operative side padded and resting across chest then secured with tape over sheet. Padded perineal post in place per surgeon.
[2023-04-06] MEDS: ACETAMINOPHEN IV 1,000 MG/100 ML VIAL 400 MG IV (09:05)
[2023-04-06] MEDS: ROPIVACAINE/EPI/CLONIDINE/KET 50 ML SYRINGE INJ (09:24)
--- NOTE | 2023-04-06 10:31 | P.OP_ITS ---
Operative Date/Time/Diagnoses Date of procedure: 04/06/23 Pre-op diagnosis: Right hip arthritis Post-op diagnosis: same Procedure & Clinicians Procedure: Right total hip arthroplasty (14833) Same procedure as scheduled: Yes Surgeon: Pantera Stiles Gas Compressor Turbine Operator: Carlito Painting Anesthesia Type: General, Spinal and Local Operative Notes Estimated Blood Loss (mL): 500 Procedure in detail: Implants: Depuy Total Hip Arthroplasty: * Depuy [place] Gription size 58 cup? * Depuy Actis femoral stem size 5 high offset? * 36 mm +5 ceramic femoral head? Procedure Summary: Conjoined tendon release not necessary to obtain adequate femoral exposure. During initial trialing, stability was good but the hip was noted to be long relative to the contralateral side fluoroscopically. I sank the broach proximally an additional 5 mm. After doing this I noted instability with a +1.5 head at 110? of external rotation. I upsized to a +5 head which resulted in good stability. Leg lengths were very slightly long on final AP imaging which was appropriate as he had started with equal leg lengths. Procedure in Detail: This patient was seen preoperatively and evaluated for hip pain which was ref ractory to numerous nonoperative treatment modalities. Their hip pain correlated with radiographic changes demonstrating significant degeneration in the hip joint. The risks and benefits of continued nonoperative management versus operative management were discussed at length and all of the patient?s questions were answered. Additional educational materials providing further details beyond our discussion in clinic were provided via a publicly available patient education video which included the incidence of medical complications associated with total hip arthroplasty, reasons for revision following total hip arthroplasty, and patient satisfaction rates following total hip arthroplasty. That video can be accessed at [email or web address] . With this understanding of the risks inherent to the procedure, the patient elected to move forward with operative management. Following preoperative optimization, the patient was scheduled for surgery. The patient was met in the preoperative holding area the day of the procedure and all questions were answered. The patient?s nares were swabbed with betadine in order to decolonize them from MRSA. Informed consent was signed and the operative limb was marked with indelible ink.? The patient was brought back to the operating room where anesthesia was induced. The patient was transferred to the [place] table and all bony prominences were padded. The operative site was prepped and draped in the usual sterile fashion. Prior to incision, tranexamic acid and cefazolin were administered. Operative templating images were displayed demonstrating the anticipated implant sizes and correct operative extremity. A timeout procedure was performed verifying the patient?s identity, medical comorbidities, allergies, relevant medications, anesthesia type and the surgical plan. All present were in agreement. The assistance of a physician assistant restaurant general manager was required for positioning, room setup, soft tissue retraction and wound closure. Without this assistance, the procedure would have been significantly more challenging and time consuming.?? A direct anterior approach to the hip was utilized. This was performed with a longitudinal incision through a Heuter interval. The incision was planned 2 cm distal and 2 cm lateral to the ASIS extending towards the lateral patella, in line with the muscle body of the TFL. Following incision, the subcutaneous tissue was dissected while taking care to avoid injury to the lateral femoral cutaneous nerve. The fascia overlying the TFL was identified by dissecting off the overlying fat and identifying perforating vessels to the TFL. The TFL fascia was incised and dissected away from the medial border of the TFL. A cobra retractor was placed over the superior femoral neck between the abductors and the hip capsule and used to reflect the TFL laterally. A [place] self-retainer was then placed in the distal aspect of the wound between the TFL and the rectus femoris. This was tensioned to open up the direct anterior interval and the lateral circumflex vessels were identified and coagulated using electrocautery. The floor of the TFL fascia was incised, exposing the pericapsular fat overlying the hip capsule. A second cobra retractor was placed on the inferior femoral neck. A double-bent soft tissue retractor was placed on the anterior wall of the acetabulum and used to tension the reflected head of rectus femoris, which was then released in order to limit soft tissue tension. A capsulotomy was made in the midline of the anterior hip capsule in line with the femoral neck ending at the vastus tubercle. The double-bent retractor was removed in order to limit the amount of time that a soft tissue retractor remained on the anterior wall and protect the femoral nerve. Tag stitches were placed in the superior and inferior leaflets of the hip capsule. An [place] soft tissue retractor was introduced over the tag stitches and tensioned in the interval between the rectus femoris and the TFL in order to retract and protect those muscles. The cobra retractors were replaced intracapsularly, with one over the superior neck in the pocket created by the base of the greater trochanter and the other on the femoral head. The capsulotomy was extended laterally to the base of the greater trochanter and medially to the lesser trochanter. This required externally rotating the hip. Once the lesser trochanter had been identified, a neck cut was planned according to measurements from preoperative templating. A ruler was cut at the length measured between the superior aspect of the lesser trochanter and the collar of the prosthesis. This line was extended towards the inferior aspect of the lateral cobra retractor to plan a cut which would leave minimal residual femoral neck laterally. The neck was cut at 60 degrees of external rotation along that line. A second cut was performed to remove a large napkin ring and facilitate head extraction. The napkin ring cut and femoral head were removed.?? A broad anterior wall retractor was placed between the labrum and the anterior capsule so that the anterior capsule would prevent capturing and pinching the femoral nerve anteriorly. An additional retractor was placed on the posterior wall. External rotation and traction were applied through the [place] table so that the cut surface of the femoral neck would not restrict access to the acetabulum. The labrum was excised sharply and the pulvinar was excised with electrocautery to limit bleeding from branches of the obturator artery. Acetabular reamers were selected based on preoperative templating and measurements of the excised femoral head. These were introduced into the acetabulum. Fluoroscopy was utilized to replicate a standing AP pelvis radiograph by centering over the pelvis, rotating until there was appropriate symmetry between the obturator foramen, and introducing caudal tilt to match the position of the pubic symphysis relative to the sacrococcygeal junction according to the patient?s anatomy. Fluoroscopy was utilized to ensure appropriate reaming depth. Once satisfied with the reaming depth corresponding to the preoperative template and the pinch fit between the columns, an appropriate sized acetabular cup was selected which would provide 1 mm of press-fit. This cup was introduced and manipulated until appropriate abduction and anteversion angles were obtained with careful attention to appropriate abduction and anteversion angles as evaluated by the position of the cup relative to the anterior and posterior orozco of the acetabulum and the AP fluoroscopy which recreated the patient?s standing radiograph. The cup was impacted into place. Peripheral osteophytes were removed. The acetabular liner was then placed with care to ensure locking of the locking mechanism.? Attention was then turned to the femur. All retractors were removed, traction was released, a retractor was placed in the interval between the hip capsule and the gluteus minimus, and the hip was externally rotated to 90 degrees. Traction was applied through the [place] table to tension the lateral capsule and this was released using electrocautery. Traction was released and a [place] hook was placed posteriorly around the proximal femur at the level of the vastus ridge. The table height was lowered in order to restrict the tension on the anterior structures during hip hyperextension to limit the risk of femoral nerve palsy. With traction off and the hip at 90 degrees of external rotation, the hip was hyperextended and adducted while manually elevating the femur away from the acetabulum with the [place] hook to ensure it would not be caught behind the greater trochanter. An asymmetric retractor was placed over the calcar and a broad double-pronged retractor was placed over the greater trochanter. The tag stitch capturing the lateral leaflet of the capsule was moved to the medial side, leaving the conjoined and piriformis tendons isolated in the face of the greater trochanter. The hip was externally rotated and elevated. A release of the conjoined tendon was not necessary in order to obtain adequate exposure for broaching. The canal was opened with an opening broach and a rasp was used to remove cancellous bone. A rongeur was used to remove the residual lateral bone at the base of the greater trochanter to avoid placing the stem in varus. The femur was then broached to the appropriate sized stem yielding good rotational fit and fill of the canal as well as appropriate version of the stem trial. Neck and head trials were placed, all retractors were removed and the hip was returned to neutral abduction and extension. I then reduced the hip. An AP pelvis fluoroscopic image matching the preoperative standing radiograph was obtained with both lesser trochanters visible and both hips in 40 degrees of external rotation. This demonstrated appropriate offset with a high offset neck, but that the operative hip was slightly long. An AP hip fluoroscopic image was obtained with the hip in neutral rotation which demonstrated that the stem could likely sink further into the femur. Hip stability was evaluated with 90 degrees of external rotation and a 45 degree drop test which demonstrated good stability. The hip was dislocated and I returned to the broaching position. I sank the size 5 broach further down the femur. I measured this at approximately 5 mm of additional depth. I repeated calcar planing. The definitive stem was placed. A 1.5 head trial was placed and I reduced the hip. I noted that I could manually dislocate the hip at approximately 110? of external rotation. I therefore exchanged the +1.5 head trial for a +5 head trial. With the larger head I noted appropriate stability with both maximum external rotation to 120? and a 45 degree drop test. AP pelvis and AP hip images were obtained. This demonstrated appropriate leg lengths and offset. Leg length had been increased slightly from his preoperative condition which was equal leg lengths. He had appropriate fill on the AP hip image. [place]'s line was restored. A 90 degree externally rotated image demonstrated good anterior to posterior canal fill of the stem. No fractures were identified. I returned to the broaching position. I cleaned and dried the trunnion. I placed a ceramic head onto the trunnion and impacted it into place on the Nunez taper.?? All retractors were removed and the hip was reduced. A dilute mixture of betadine and peroxide was used to bathe the soft tissues during final fluoroscopic assessment. Appropriate component positioning was confirmed on an AP pelvis radiograph with the operative and nonoperative legs in 40 degrees of external rotation, evaluating leg length and offset. Appropriate stem fill was evaluated on an AP hip radiograph with the operative leg in neutral rotation. No fractures were identified on these radiographs. Stability was satisfactory with a 90 degree external rotation test as well as a 45 degree drop test. The hip was copiously irrigated with pulse lavage. The capsule was closed with absorbable interrupted suture. The TFL fascia was closed with barbed suture while carefully protecting the lateral femoral cutaneous nerve from entrapment. A mixture of Ropivacaine, Epinephrine, Clonidine and Toradol was infiltrated throughout the soft tissues. The skin was closed with 2-0 and 3-0 sutures. Surgical glue was applied and a soft dressing was placed.??The sponge, instrument and needle counts were reported as being correct at the end of the case.??No obvious complications occurred. The patient was transferred from the [place] table back to a stretcher. The patient emerged from anesthesia without difficulty and was taken to the PACU in a stable condition.? Plan for aftercare: * Anterior hip precautions * Due to bed availability, we will plan to keep the patient on the main floor of the hospital and have him work with physical therapy down here. If he is able to clear for discharge home while we will discharge him as a same-day discharge following mobilization without having gone up to the 2nd floor * Weightbearing as tolerated * Aspirin 81 twice per day for DVT prophylaxis * Multimodal pain regimen with no IV opioids ordered * Follow up at [facility] in 2 weeks * Detailed postoperative instructions available at [email or web address]
[2023-04-06] MEDS: OXYCODONE IR 5 MG TABLET PO ×2 (10:59→11:53)
[2023-04-06] MEDS: IBUPROFEN 600 MG TABLET PO ×3 (12:35→23:59)
--- NOTE | 2023-04-06 14:00 | PT.IIE ---
Current Diagnoses Unilateral primary osteoarthritis, right hip (04/06/23) Surgery Performed Operation Date: 04/06/23 07:45 Actual Procedures p Total Hip Arthroplasty/Anterior Approach(Right) - Pantera Stiles MD Surgical History (Last Updated 12/22/21 @ 19:10 by Ashley Bryan) Anesthesia History of hernia surgery History of prostatectomy (~2018) Medical History (Last Updated 12/22/21 @ 19:10 by Ashley Bryan) Hearing loss Vision disorder Physical Therapy Inpatient Evaluation/Re-Eval M1 PT/OT-IP Prior Functional Status Start: 04/06/23 16:33 Freq: NEEDED Status: Active Protocol: Document 04/06/23 14:00 AB (Rec: 04/06/23 16:59 AB [id number]) Medical Review Prior Functional Status Medical History Reviewed Yes Communication able to make needs known Mobility and Gait pt stated that he was independent with all mobilities and ambulation without AD Social History Household Members spouse Living Arrangements House Number of Floors (Floors) Two Floors Number of Stairs To Enter/Railing? 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[employer] [facility] M2 PT-IP Current Condition Start: 04/06/23 16:33 Freq: NEEDED Status: Active Protocol: Document 04/06/23 14:00 AB (Rec: 04/06/23 16:59 AB [id number]) Physical Therapy Current Condition Current Condition Evaluation Date 04/06/23 Treatment Diagnosis s/p R CHRISTINA anterior approach; difficulty in walking Onset Date 04/06/23 M3 PT-IP Subjective Start: 04/06/23 16:33 Freq: NEEDED Status: Active Protocol: Document 04/06/23 14:00 AB (Rec: 04/06/23 16:59 AB [id number]) Subjective Physical Therapy Visit Type Type Initial Evaluation Visit Start Time 14:00 Visit Stop Time 15:10 Number of FLAT FOLDING MACHINE OPERATOR Visits 70 Physical Therapy Visit Comments Patient Comments agreeable to do PT Therapy Pain Assessment Pain When Pain Assessed At Rest Pain Present Pain Present Pain Reported Location Right Hip Intensity 6 Scale Used Numeric (0 - 10) Pain Management Techniques Modification of Treatment, Timing of Activity with Medications M4 PT-IP Mobility and Gait Start: 02/14/24 16:33 Freq: NEEDED Status: Active Protocol: Document 04/06/23 14:00 AB (Rec: 04/06/23 16:59 AB [id number]) PT-Bed Mobility Assessment Supine to Sit Supine to Sit Standby Assistance Sit to Supine Sit to Supine Minimal Assistance PT-Transfer Assessment Sit to and From Stand Sit to and from Stand Contact Guard Assistance,1 Person Assistance,Use of Upper Extremities Equipment Transfer Assistive Device Gait Belt,Front Wheeled Walker Orthotic/Prosthetic Devices or Brace: No Comments Mobility Comments pt is PACU. pt supine in bed. spouse and nurse in room. obtained pt's PLOF and home set up. pt stated that he did not had any pre-op PT. educated pt regarding anterior hip precautions. post-op folder provided and reviewed contents. BP in supine: 130/81. pt completed supine to sit SBA but with difficulty completing task and required increase time to complete. pt was able to sit on EOB. BP in sittin/79. c/o slight lightheadedness but dissipated after a few minutes of sitting. OT in room and assisted pt with dressing. pt reminded of his precautions. completed sit to stand CGA and was able to stand CGA using fWW. BP checked in standin/78. pt sat back on EOB. caregiver training initiated. educated spouse on how to use safety belt and how to assist pt. spouse was able to put safety belt on. pt needing to change brief pad and OT assisted. pt completed sit to stand again CGA and was able to stand CGA while assisted with brief pad change and LB dressing. PT asked pt if he is still feeling ok as pt's lips becoming pale. pt then stated that he is getting lightheaded again. BP checked: 71/49. instructed pt to sit back down. pt assisted to bed min A with LE. BP checked in supine: 116/82. positioned pt in bed. Nurse in room and aware. set up caregiver training tomorrow at 9 am. Gait Assessment Comments Gait Comments unable at this time due to hypotension PT-Balance Assessment Sitting Balance and Reactions Static Sitting Balance Ability Normal Dynamic Sitting Balance Ability Good Standing Balance and Reactions Static Standing Balance Ability Fair Dynamic Standing Balance Ability Fair Device Used FWW M5 PT-IP Objective Assessments Start: 04/06/23 16:33 Freq: NEEDED Status: Active Protocol: Document 04/06/23 14:00 AB (Rec: 04/06/23 16:59 AB [id number]) Orientation Orientation/Cognition Level of Alertness Alert Orientation Name,Situation Safety Awareness Decreased Safety Awareness Memory Description Short Term Impaired Gross Range of Motion Lower Extremity ROM Assessment Within Functional Limits Strength Lower Extremity Strength Assessment Right Impaired Hip 3-/5 Knee 4-/5 Coordination Assessment Gross Coordination Gross Coordination WNL Sensation Assessment Sensation Gross Sensation WNL Muscle Tone Muscle Tone WNL Yes M6 PT-IP Treatment Start: 04/06/23 16:33 Freq: NEEDED Status: Active Protocol: Document 04/06/23 14:00 AB (Rec: 04/06/23 16:59 AB [id number]) Physical Therapy Treatment Exercises Exercises Heel Slides Education Education Provided Precautions,Weight Bearing Status,Post-Op Packet,Safety M7 PT-IP Assessment and Plan Start: 04/06/23 16:33 Freq: NEEDED Status: Active Protocol: Document 04/06/23 14:00 AB (Rec: 04/06/23 16:59 AB [id number]) PT Summary Assessment and Plan Potential Rehabilitation Potential Fair Status of Condition at Evaluation Unstable Summary Impairments Pain,ROM,Strength,Balance, Coordination,Sensation,Tone, Cognition,Bed Mobility, Transfers,Gait,Activity Tolerance Assessment Summary PT eval conducted in PACU and MD wanting pt to go home after PT eval. pt is a 68 y/o M s/ p R CHRISTINA anterior POD 0. pt has R hip anterior precautions and is WBAT. pt requiring SBA for supine to sit and min A for sit to supine and CGA for sit to stand. pt unable tolerate much activity with hypotensive episode 71/49 with c/o lightheadedness needing to sit back down. Pt in not safe to d/c home at this time. pt will likely improve during hospital stay. Caregiver training set up for tomorrow at 9 am. pt also stated that he is not set up for outpt PT . informed pt and spouse to set up outpt PT ana rosa and to inform his ortho MD. will continue to assess. Goals Bed Mobility Goal Independent Transfer Goal Independent,Front Wheeled Walker Gait Goal Independent,Front Wheel Walker Gait Distance 200 Other Goals improve transfers and ambulation using LRAD 300 ft SBA up/down 4 steps 1 rail SBA Days to Meet Goals 5 Frequency of Treatment Frequency Of Treatment Twice a Day Treatment Plan Physical Therapy Treatment Plan Bed Mobility Training,Transfer Training,Gait Training, Therapeutic Exercise,Balance Retraining,Post Op Education, Discharge Planning,Hot or Cold Pack,Neuromuscular Re-ed, Coordination Retraining,Manual Therapy Other Recommendations and Next Treatment caregiver trainin/15 @ 9am Focus Precautions Anterior Hip Precautions No Hip Extension,No Hip External Rotation Weight Bearing Status Weight Bearing Status Weight Bear as Tolerated Allowed Weight Bearing Amount (enter % RLE WBAT or #) (%) Recommendations To Nursing Amount of Assist Needed 1 Person Assist Discharge Recommendations PT Discharge Recommendations Home with Assistance, Outpatient PT Transportation Needs at Discharge Private Vehicle
--- NOTE | 2023-04-06 14:21 | SUR.PHASEII ---
1400 - phase 2 - ice to right ant hip every 20 mins with towel over skin and polar care cube- . (on for 20 mins, off for 20 mins) Pt states pain is unchanged from 5-6 after medicating. It's getting better though.
--- NOTE | 2023-04-06 14:26 | SUR.PHASEII ---
1345.pt able to squeeze buttocks and move bilateral lower ext. Dr Stiles visits and states pt is ready for physical therapy/ OT care. Pt able to sit on side of bed and stands with walker to get dressed. 1415. Physical therapy/ OT here to teaching. up to floor for further teaching
[2023-04-06] MEDS: LACTATED RINGERS 1,000 ML 100 ML IV (15:00)
--- NOTE | 2023-04-06 15:10 | OT.IP.EVAL ---
Current Diagnoses Unilateral primary osteoarthritis, right hip (04/06/23) Surgery Performed Operation Date: 04/06/23 07:45 Actual Procedures p Total Hip Arthroplasty/Anterior Approach(Right) - Pantera Stiles MD Past Medical History (Last Updated 12/22/21 @ 19:10 by Ashley Bryan) Hearing loss Vision disorder Surgical History (Last Updated 12/22/21 @ 19:10 by Ashley Bryan) Anesthesia History of hernia surgery History of prostatectomy (~2018) Occupational Therapy Inpatient Evaluation/Re-Eval M1 PT/OT-IP Prior Functional Status Start: 04/06/23 17:07 Freq: NEEDED Status: Active Protocol: Document 04/06/23 17:07 [facility] (Rec: 04/06/23 17:20 [facility] [id number]) Medical Review Prior Functional Status Medical History Reviewed Yes Communication able to make needs known Mobility and Gait pt stated that he was independent with all mobilities and ambulation without AD Activities of Daily Living and IADL's Pt completely indepedent and 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 Social History Household Members spouse Living Arrangements House Number of Floors (Floors) Two Floors Number of Stairs To Enter/Railing? 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[place] [id number] OT-IP Current Condition Start: 04/06/23 17:07 Freq: Status: Active Protocol: Document 04/06/23 17:07 [facility] (Rec: 04/06/23 17:20 [facility] [id number]) Occupational Therapy Current Condition Current Condition Evaluation Date 04/06/23 Treatment Diagnosis S/P R CHRISTINA anterior Post Operative Precautions Anterior Hip Precautions No Hip Extension,No Hip External Rotation M3 OT- IP Subjective and Pain Start: 04/06/23 17:07 Freq: Status: Active Protocol: Document 04/06/23 17:07 [facility] (Rec: 04/06/23 17:20 [facility] [id number]) OT- Subjective Occupational Therapy Visit Type Type Initial Evaluation Visit Start Time 14:00 Visit Stop Time 15:10 Occupational Therapy Visit Comments Patient Comments Pt is very groggy and willing to do evals. Pt's in the room. Patient/Caregiver Goals To go home. OT Pain Assessment Pain When Pain Assessed During Mobility Pain Present Pain Present Pain Reported Location Right Hip Intensity 6 Scale Used Numeric (0 - 10) M4 OT- IP ADL's Start: 04/06/23 17:07 Freq: Status: Active Protocol: Document 04/06/23 17:07 [facility] (Rec: 04/06/23 17:20 [facility] [id number]) OT [id number] Comments OT Self-Feeding Comments Not at meal time, no issues anticipated. OT ADL-Grooming Comments OT Grooming Comments No performed no issues anticipated. OT ADL-Oral Care Comments Oral Care Comments NOt performed. OT ADL-Dressing General Eval Lower Body Dressing Ability Maximum Assistance Areas Needing Assistance Pants/Shorts,Socks,Shoes Comments OT Dressing Comments Pt educated of dressing the right side first and take out last. At this time pt a bit groggy and needing MAXA for dressing needs. OT ADL-Toileting Comments OT Toileting Comments Pt states tends to leak and noted his pants wet and have the nursing bring pt scrub pants to change into. Suggested pt use a urinal at night or have his asisst him. Also educated pt to be mindful of how he wipes, as pt states he externally rotates his leg to wipe and educated may be easier to stand at this time or get assist. OT ADL-Bathing Comments OT Bathing Comments NOt performed. Suggested pt get a shower chair and hhsp. M5 OT- IP IADL's Start: 04/06/23 17:07 Freq: Status: Active Protocol: Document 04/06/23 17:07 [facility] (Rec: 04/06/23 17:20 [facility] [id number]) OT-Instrumental Activities of Daily Living Deficits IADL Deficits Identified Deficits Home Safety Awareness Awareness of Need for Assistance at Home Decreased Awareness Home Safety Comments Pt very groggy and not thinking well at this time. Medication Management Medication Management Comments At this time pt will need assist as not fully alert. Money Management Money Management Comments Pt will need assist as still groggy. Meal Preparation Meal Preparation Caregiver Provides Assist Aws Consultant Aws Consultant Caregiver Provides Assist M6 OT- IP Functional Cognition Start: 04/06/23 17:07 Freq: Status: Active Protocol: Document 04/06/23 17:07 [facility] (Rec: 04/06/23 17:20 [facility] [id number]) Cognitive Factors Limiting Selfcare Function Cognitive Ability Level of Alertness Confusional State,Drowsy Patient Orientation Name,Place,Situation Attention Span Ability Capable of Focused Attention, Capable of Sustained Attention Ability to Follow Commands Able to Follow One Step Commands with Increased Time, Able to Follow One Step Commands with Repetition Safety Awareness Decreased Recall of Precautions,Decreased Ability to Apply Precautions Cognitive Comments Cognitive Assessment Comments Pt still very groggy from surgery and not able to recall his hip precautions for ADl and mobility needs. OT- Vision and Hearing OT- Hearing Assessment OT- Hearing Assessment WFL OT- Vision Assessment Visual Acuity Glasses All The Time Visual Attentiveness WFL Occular Pursuits WFL M7 OT- IP Mobility and Balance Start: 04/06/23 17:07 Freq: Status: Active Protocol: Document 04/06/23 17:07 [facility] (Rec: 04/06/23 17:20 [facility] [id number]) OT- Bed Mobility Assessment Supine to Sit Supine to Sit Assist Contact Guard Assistance Sit to Supine Sit to Supine Assist Minimal Assistance OT-Transfer Assessment Sit to and From Stand Sit to and from Stand Contact Guard Assistance Comments Mobility Comments CGA to get out of the flat bed and vc to keep his toes up and from externally rotating. CGA to stand. BP supine 130/ 81, sitting 121/79. standing 119/78 and after standing again drops to 71/49 and was very symptomatic. Unable to do any more mobility needs with pt at this time. OT- Balance Assessment Sitting Balance and Reactions Static Sitting Balance Ability Normal Dynamic Sitting Balance Ability Good Standing Balance and Reactions Static Standing Balance Ability Fair Dynamic Standing Balance Ability Fair M8 OT- IP Objective Assessments Start: 04/06/23 17:07 Freq: Status: Active Protocol: Document 04/06/23 17:07 [facility] (Rec: 04/06/23 17:20 [facility] [id number]) OT Gross Range of Motion Upper Extremity Range of Motion Assessment Within Functional Limits OT Strength Upper Extremity Strength Assessment Within Functional Limits M9 OT- IP Assessment and Plan Start: 04/06/23 17:07 Freq: Status: Active Protocol: Document 04/06/23 17:07 [facility] (Rec: 04/06/23 17:20 [facility] [id number]) OT Summary Assessment and Plan Potential Rehabilitation Potential Good Analytic Complexity at Evaluation Low Summary OT Impairments Pain,Strength,Balance, Functional Mobility,Dressing, Toileting,Bathing,Toilet Transfers,Shower Transfers Progress Towards Goals Slow Progress due to Pain,Slow Progress due to Medical Issues Assessment Summary Pt low complexity and main barriers sre pain, hypotensive and very groggy and not able to recall or incorporate his hip precautions at this time. Pt states feels that he is not able to think well at this time. Pt to go home with his when medically stable and have outpt PT. Goals Grooming Goal Independent Dressing Goal Independent Toileting Goal Independent Bathing Goal Independent Toilet Transfer Goal Independent Shower Transfer Goal Independent Days to Meet Goals 5 Frequency of Treatment Frequency Of Treatment Once a Day Treatment Plan OT Treatment Plan ADL Training,Functional Mobility,Patient/Family Education,Discharge Planning Discharge Recommendations OT Discharge Recommendations Home with Assistance, Outpatient PT Home Equipment Needs shower chair, LB dressing equipment, hhsp Transportation Needs at Discharge Private Vehicle
[2023-04-06] MEDS: TRAMADOL 50 MG TABLET PO ×2 (15:31→21:14)
--- NOTE | 2023-04-06 16:33 | SUR.PHASEII ---
1615. LR 600 bolus given. states pain improved. Polar care cube in place. PT here to re-evaluate. bp 116/62, hr 72. pt pink, warm and dry.
--- NOTE | 2023-04-06 16:50 | SUR.PHASEII ---
1645 - pt to be admitted after 2nd pt eval. report to CANDI Webber
[2023-04-06] MEDS: ACETAMINOPHEN 325 MG TABLET 650 MG PO ×2 (18:07→23:59)
--- NOTE | 2023-04-06 19:55 | PM.PN.1 ---
Subjective Subjective Interval history: Patient seen postoperatively. Resting comfortably. No acute distress. Toes warm and well perfused. Flexing and extending knee and ankle actively. Did well with physical therapy. Has had some hypotension. Staying overnight and getting oral fluid resuscitation. Going to continue working with physical therapy tomorrow as he has not done stair training yet. Anticipate discharge home tomorrow Exam Vital Signs (past 8 hours): - 04/06/23 11:56 04/06/23 12:00 04/06/23 12:30 Temperature 97.1 F L 97.4 F L Pulse Rate 65 65 72 Respiratory Rate 16 16 Blood Pressure 127/82 117/78 118/78 Pulse Oximetry 97 97 96 Oxygen Delivery Method Room Air Room Air Room Air Oxygen Flow Rate 04/06/23 13:30 04/06/23 14:30 04/06/23 17:30 Temperature 97.5 F L 97.3 F L Pulse Rate 83 84 84 Respiratory Rate 16 16 16 Blood Pressure 133/87 130/80 120/90 Pulse Oximetry 96 96 95 Oxygen Delivery Method Room Air Room Air Oxygen Flow Rate 0 04/06/23 18:00 Temperature Pulse Rate 93 H Respiratory Rate 16 Blood Pressure 133/95 H Pulse Oximetry 95 Oxygen Delivery Method Oxygen Flow Rate 0 Oxygen Delivery Method Room Air Oxygen Flow Rate 0 PFSH Medical History (Updated 04/12/22 @ 14:47 by Jethro Finney MD) Vision disorder Hearing loss Surgical History (Updated 12/22/21 @ 19:10 by Ashley Bryan) Anesthesia History of hernia surgery History of prostatectomy (~2017) Family History (Updated 12/22/21 @ 19:12 by Ashley Bryan) Mother Congestive heart failure Grandfather Respiratory disease Grandmother Diabetes mellitus Social History household members: spouse Smoking Status: Never smoker alcohol intake: never Quality VTE Deep Vein Thrombosis/Pulmonary Embolism Present on Admission: No
[2023-04-06] MEDS: DOCUSATE 100 MG CAPSULE PO (21:10)
[2023-04-06] MEDS: ASPIRIN EC 81 MG TABLET PO (21:11)
[2023-04-07] MEDS: CEFAZOLIN 2 GM/100 ML PREMIX 100 ML IV
[2023-04-07] MEDS: ACETAMINOPHEN 325 MG TABLET 650 MG PO (05:36)
[2023-04-07] MEDS: LEVOTHYROXINE 50 MCG TABLET PO (05:36)
[2023-04-07] MEDS: IBUPROFEN 600 MG TABLET PO (05:36)
[2023-04-07 06:00] LABS: Hematocrit 37.7 % (41-53); Hemoglobin 12.8 g/dL (13.5-17.5)
[2023-04-07 06:16] VITALS: BP 111/73; PULSE 75; RESP 18; TEMP 36.4; O2SAT 95
[2023-04-07 08:00] VITALS: BP 91/66; PULSE 87; RESP 16; TEMP 36.1; O2SAT 97
[2023-04-07] MEDS: PANTOPRAZOLE DR 40 MG TABLET 20 MG PO (08:43)
[2023-04-07] MEDS: DOCUSATE 100 MG CAPSULE PO (08:43)
[2023-04-07] MEDS: ASPIRIN EC 81 MG TABLET PO (08:43)
[2023-04-07 08:44] VITALS: BP 91/60
[2023-04-07] MEDS: OXYCODONE IR 5 MG TABLET PO (08:44)
--- NOTE | 2023-04-07 09:00 | PT.IPTN ---
Current Diagnoses Unilateral primary osteoarthritis, right hip (04/06/23) Surgery Performed Operation Date: 04/06/23 07:45 Actual Procedures p Total Hip Arthroplasty/Anterior Approach(Right) - Pantera Stiles MD Physical Therapy Treatment Note M2 PT-IP Current Condition Start: 04/06/23 16:33 Freq: NEEDED Status: Active Protocol: Document 04/06/23 17:32 [facility] (Rec: 04/06/23 17:43 [facility] [id number]) Physical Therapy Current Condition Current Condition Evaluation Date 04/06/23 Treatment Diagnosis Impaired mobility Onset Date 04/06/23 M3 PT-IP Subjective Start: 04/06/23 16:33 Freq: NEEDED Status: Active Protocol: Document 04/07/23 09:26 [facility] (Rec: 04/07/23 09:46 TS [id number]) Subjective Physical Therapy Visit Type Type Treatment Note Visit Start Time 09:00 Visit Stop Time 09:25 Number of LEATHER STITCHER Visits 1 Physical Therapy Visit Comments Patient Comments Pt reports feeling much better this morning. He does not have a post-op PT appointment scheduled when he leaves hospital. Pt is agreeable to PT. Therapy Pain Assessment Pain When Pain Assessed During Mobility Pain Present Pain Present Pain Reported M4 PT-IP Mobility and Gait Start: 04/06/23 16:33 Freq: NEEDED Status: Active Protocol: Document 04/07/23 09:26 [facility] (Rec: 04/07/23 09:46 [facility] [id number]) PT-Bed Mobility Assessment Supine to Sit Supine to Sit Standby Assistance Sit to Supine Sit to Supine Standby Assistance Scooting Scooting to Edge of Bed Standby Assistance Scooting Up and Down in Bed Standby Assistance PT-Transfer Assessment Sit to and From Stand Sit to and from Stand Standby Assistance Equipment Transfer Assistive Device Gait Belt,Front Wheeled Walker Orthotic/Prosthetic Devices or Brace: No Comments Mobility Comments Supine to sit HOB elevated SBA with BUE support for RLE assistance to EOB. STS from bed with FWW SBA, pt has good standing balance with no retroleaning. He ambulated in hallway ~200' with FWW and step to gait. He performed stairs x6 SBA with single rail , pt required cues for step sequencing. pt ambulated back to bed. Pt was left in bed, all needs met. Gait Assessment Gait Gait Assistance Required: Standby Assistance Distance (Feet) 200 Able to Maintain Weight Bearing Status Yes During Gait Assistive Devices Assistive Device Front Wheeled Walker Orthotic/Prosthetic Devices or Brace: No Comments Gait Comments See mobility comments Stair Climbing Assessment Evaluation Level of Assist On Stairs Standby Assistance Devices Stair Climbing Assistive Devices Left Railing Technique/Endurance Stair Climbing Direction Ascend and Descend Stair Climbing Technique Step to Step Number of Steps Climbed 6 PT-Balance Assessment Sitting Balance and Reactions Static Sitting Balance Ability Normal Dynamic Sitting Balance Ability Normal Standing Balance and Reactions Static Standing Balance Ability Good Dynamic Standing Balance Ability Good Device Used FWW M5 PT-IP Objective Assessments Start: 04/06/23 16:33 Freq: NEEDED Status: Active Protocol: Document 04/06/23 17:32 [facility] (Rec: 04/06/23 17:43 [facility] [id number]) Orientation Orientation/Cognition Comments Pt demonstrated distractability and slowness with understanding material presented. Gross Range of Motion Upper Extremity ROM Assessment Within Functional Limits Lower Extremity ROM Assessment Right Impaired Impairments hip M6 PT-IP Treatment Start: 04/06/23 16:33 Freq: NEEDED Status: Active Protocol: Document 04/07/23 09:26 [facility] (Rec: 04/07/23 09:46 TS [id number]) Physical Therapy Treatment Education Education Provided Precautions,Weight Bearing Status,Safety M7 PT-IP Assessment and Plan Start: 04/06/23 16:33 Freq: NEEDED Status: Active Protocol: Document 04/07/23 09:26 TS (Rec: 04/07/23 09:46 TS [id number]) PT Summary Assessment and Plan Potential Rehabilitation Potential Excellent Summary Impairments Pain,ROM,Strength,Balance, Coordination,Cognition,Bed Mobility,Transfers,Gait, Activity Tolerance Progress Towards Goals Progressing Toward Goals Assessment Summary Jared is making good progress with his mobility this session. He progressed bed mobility and STS to SBA with FWW. He progressed his gait to ~200' SBA with FWW and a step to gait. He performed stairs x6 SBA with single and no LOB or buckling. Pt will need a post-op PT appointment due to not having one scheduled prior to surgery. PT is recommending home with assist and outpatient PT. Goals Bed Mobility Goal Independent Transfer Goal Standby Assistance Gait Goal Standby Assistance Gait Distance 100 Other Goals Proper use of walker Frequency of Treatment Frequency Of Treatment Twice a Day Treatment Plan Physical Therapy Treatment Plan Bed Mobility Training,Transfer Training,Gait Training, Therapeutic Exercise,Post Op Education Other Recommendations and Next Treatment Stairs - pt has 5 steps to get Focus into house with wide railings Precautions Anterior Hip Precautions No Hip Extension,No Hip External Rotation Weight Bearing Status Weight Bearing Status Weight Bear as Tolerated Recommendations To Nursing Amount of Assist Needed Standby Assistance Discharge Recommendations PT Discharge Recommendations Home with Assistance, Outpatient PT Transportation Needs at Discharge Private Vehicle
--- NOTE | 2023-04-07 10:29 | P.DS_ITS ---
History of Present Illness History of Present Illness Chief complaint: Right CHRISTINA *OPB* Narrative: Jared is a pleasant 68 year old male who is POD#1 s/p a right total hip arthroplasty done by Dr. Stiles. Reports he is doing well overall, pain is well controlled with oral pain medication. He states he is happy with his care. Worked with PT 2x yesterday in the PACU before being brought upstairs due to an episode of hypotension. Has not worked with PT yet today but has been getting up and walking to the restroom on his own several times since being admitted to the floor. Urinating on his own without issue. Will be d/c to home where he lives with his who is willing able to assist patient in the immediate post-op period. Has four steps up to the front door but no stairs inside the home he will have to do on a daily basis. Has post-op Rxs already and PT set up, will do PT with [facility]. Denies fever, chills, chest pain, SOB, nausea, vomiting. Denies feelings of syncope, near-syncope. Overall much better/less lightheaded than yesterday. 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 * Depuy Actis femoral stem size 5 high offset? * 36 mm +5 ceramic femoral head? Discharge Providers Provider Discharge Date: 04/07/23 Primary care physician: Jethro Finney MD Consults: 04/06/23 06:00 Consult to Anesthesiology Routine Comment: Consulting Provider: Anesthesiologist Reason for consultation: Regional block for post operative pain control 04/06/23 11:53 Consult to Discharge Planning Routine Comment: Consult to Occupational Therapy Evaluate & Treat Comment: Physician Instructions: Evaluate and treat Consult to Physical Therapy Evaluate & Treat Comment: Physician Instructions: post op CHRISTINA protocol Discharge provider: Lilly Arora PA-C Summary Hospital Course Discharge Diagnosis: Right hip osteoarthritis status post right CHRISTINA. Hospital Course: Hospital course complicated by an episode of hypotension postop. Resolved now. Exam Vital Signs (past 8 hours): - 04/07/23 06:16 04/07/23 08:00 04/07/23 08:44 Temperature 97.6 F 97.0 F L Pulse Rate 75 87 Respiratory Rate 18 16 Blood Pressure 111/73 91/66 91/60 Pulse Oximetry 95 97 Oxygen Flow Rate 0 Oxygen Delivery Method Room Air Oxygen Flow Rate 0 Const General: cooperative, healthy appearing and comfortable Resp Effort & Inspection: normal respiratory effort and able to speak in complete sentences Cardio Rate: regular rate Other: Brisk capillary refill Skin Other: Clean and dry Aquacel dressing intact over the right anterior hip. Neuro General: patient alert, patient awake and patient oriented x3 Extrem Other: Calves soft and non-tender bilaterlly. Sensation intact throughout bilateral lower extremities. 5/5 strength with DF, PF, EHL. Good AROM of right Knee with both flexion/extension. Objective Labs 04/07/23 05:33 Labs: Laboratory Results - last 24 hr 04/07/23 05:33 Hgb 12.8 L Hct 37.7 L PFSH Medical History (Updated 04/12/22 @ 14:47 by Jethro Finney MD) Vision disorder Hearing loss Surgical History (Updated 12/22/21 @ 19:10 by Ashley Bryan) Anesthesia History of hernia surgery History of prostatectomy (~2018) Family History (Updated 12/22/21 @ 19:12 by Ashley Bryan) Mother Congestive heart failure Grandfather Respiratory disease Grandmother Diabetes mellitus Social History household members: spouse Smoking Status: Never smoker alcohol intake: never Discharge Assessment & Plan Assessment and Plan Assessment: Stable psot-op Right CHRISTINA, anterior. Plan of Treatment: 1) Plan to work with PT once more prior to d/c today. Continue to work on mobility with outpatient PT as well. 2) Weight bearing as tolerated, maintain anterior hip precautions 3) Has post-op Rxs at home already, continue multimodal pain management with ice as needed to hip for additional pain control. Continue ASA BID for DVT prophylaxis. 4) Follow up at [facility] in 2 weeks 5) Keep dressing intact and clean and dry until 2 week post-op appointment. If dressing becomes saturated or dirty okay to remove and replace with clean dry gauze. No soaking the incision site and posterior tubs. No topical ointments or creams to the incision site. 6) Detailed postoperative instructions available at [email or web address] Discharge Plan Discharge Plan Patient Disposition: Home Provider Discharge Comment: Detailed postoperative instructions available at: [email or web address] Discharge orders & Medications Discharge Orders: Discharge (Order); Ordered 04/07/23 Ordered By: Lilly Arora Prescriptions: Continued levothyroxine 50 mcg tablet 50 mcg PO DAILY Qty: 90 3RF metoprolol succinate 25 mg tablet extended release 24 hr 25 mg PO DAILY Qty: 30 0RF pantoprazole 40 mg tablet,delayed release (DR/EC) 20 mg PO DAILY Follow up/Referrals: Jethro Finney MD [Primary Care Provider] - Pantera Stiles MD [Physician] - 04/21/23 1:20 pm (appt: @ 1:[address] Stiles @ [facility] ) Diet/Activity/Treatments Diet: Diet as Tolerated Activity: Weight bearing as tolerated, maintain anterior hip precautions. Cold/Heat Therapy: Ice to the joint as needed for pain control. Place a towel or other barrier between you and the ice. Follow your doctor?s instructions for length of use, rest between use. Skin/Wound/Dressing Care Report to your healthcare provider any signs of infection, such as:: chills, fever, night sweats, unusual drainage and unusual redness Dressing: Keep dressing intact until 2 week post-op appointment. Keep dressing clean and dry, if dressing becomes saturated or dirty okay to remove and replace with clean and dry gauze. No soaking the incision site in pools or tubs. No topical lotions, ointments or creams to the incision site. Visit Report/Discharge Packet Instructions: DI for Hip Replacement, DI for Prescription Opioid Use Stand Alone Forms: Surgery Discharge Discharge Data Primary Care Provider: Jethro Finney Attending Provider: Pantera Stiles Quality VTE Deep Vein Thrombosis/Pulmonary Embolism Present on Admission: No
--- NOTE | 2023-04-07 10:45 | OT.IP.TRT ---
Current Diagnoses Unilateral primary osteoarthritis, right hip (04/06/23) Surgery Performed Operation Date: 04/06/23 07:45 Actual Procedures p Total Hip Arthroplasty/Anterior Approach(Right) - Pantera Stiles MD Occupational Therapy Treatment Note M2 OT-IP Current Condition Start: 04/06/23 17:07 Freq: Status: Active Protocol: Document 04/06/23 17:07 [facility] (Rec: 04/06/23 17:20 [facility] [id number]) Occupational Therapy Current Condition Current Condition Evaluation Date 04/06/23 Treatment Diagnosis S/P R CHRISTINA anterior Post Operative Precautions Anterior Hip Precautions No Hip Extension,No Hip External Rotation M3 OT- IP Subjective and Pain Start: 04/06/23 17:07 Freq: Status: Active Protocol: Document 04/07/23 10:52 [facility] (Rec: 04/07/23 10:56 [facility] [id number]) OT- Subjective Occupational Therapy Visit Type Type Treatment Note Visit Start Time 10:20 Visit Stop Time 10:45 Occupational Therapy Visit Comments Patient Comments Pt sitting in the recliner, and friend present in the room. Patient/Caregiver Goals To go home. OT Pain Assessment Pain When Pain Assessed During Mobility Pain Present Pain Present Pain Reported M4 OT- IP ADL's Start: 04/06/23 17:07 Freq: Status: Active Protocol: Document 04/06/23 17:07 [facility] (Rec: 04/06/23 17:20 [facility] [id number]) OT [id number] Comments OT Self-Feeding Comments Not at meal time, no issues anticipated. OT ADL-Grooming Comments OT Grooming Comments No performed no issues anticipated. OT ADL-Oral Care Comments Oral Care Comments NOt performed. OT ADL-Dressing General Eval Lower Body Dressing Ability Maximum Assistance Areas Needing Assistance Pants/Shorts,Socks,Shoes Comments OT Dressing Comments Pt educated of dressing the right side first and take out last. At this time pt a bit groggy and needing MAXA for dressing needs. OT ADL-Toileting Comments OT Toileting Comments Pt states tends to leak and noted his pants wet and have the nursing bring pt scrub pants to change into. Suggested pt use a urinal at night or have his asisst him. OT ADL-Bathing Comments OT Bathing Comments NOt performed. Suggested pt get a shower chair. M6 OT- IP Functional Cognition Start: 04/06/23 17:07 Freq: Status: Active Protocol: Document 04/07/23 10:52 [facility] (Rec: 04/07/23 10:56 [facility] [id number]) Cognitive Factors Limiting Selfcare Function Cognitive Ability Level of Alertness Alert Patient Orientation Name,Age,Birthday,Month,Date, Year,Day of Week,Place, Situation Attention Span Ability Capable of Focused Attention, Capable of Sustained Attention Ability to Follow Commands Able to Follow One Step Commands Safety Awareness No Deficits Noted Cognitive Comments Cognitive Assessment Comments Pt doing much better with incorporating his precautions today. Still encourage pt to move his leg versus just rely on the leg special effects designer to get his bed in and out of the bed. Able to re-educated pt on his precautions and what to look out after during his ADL and mobility needs. M9 OT- IP Assessment and Plan Start: 04/06/23 17:07 Freq: Status: Active Protocol: Document 04/07/23 10:52 [facility] (Rec: 04/07/23 10:56 [facility] [id number]) OT Summary Assessment and Plan Potential Rehabilitation Potential Good Analytic Complexity at Evaluation Low Summary OT Impairments Pain,Strength,Balance, Functional Mobility,Dressing, Toileting,Bathing,Toilet Transfers,Shower Transfers Progress Towards Goals Progressing Toward Goals Assessment Summary Pt doing much better today and to be going home with his to assist. Pt to have outpt PT. Goals Grooming Goal Independent Dressing Goal Independent Toileting Goal Independent Bathing Goal Independent Toilet Transfer Goal Independent Shower Transfer Goal Independent Days to Meet Goals 4 Frequency of Treatment Frequency Of Treatment Once a Day Treatment Plan OT Treatment Plan ADL Training,Functional Mobility,Patient/Family Education,Discharge Planning Discharge Recommendations OT Discharge Recommendations Home with Assistance, Outpatient PT Home Equipment Needs shower chair, LB dressing equipment, hhsp
--- NOTE | 2023-04-07 12:44 | PC.NURSE ---
Day shift: Discharge instructions gone over with patient and patient's . They stated understanding, all questions answered. PIV d/c'ed prior to discharge. All belongings with patient's spouse. PCT Jose escorted patient via wheelchair to main entrance where is planning to drive him home.
--- NOTE | 2023-04-07 14:09 | CM.DANOTE ---
Initial DCP Assessment Visit Note Reviewed EMR and team rounds for pt's medical status and anticipated d/c needs. Met with pt/spouse at bedside to introduce self and role, pt found to be awake/dressed/preparing for d/c home. He denies any home resource needs, plan is for OP PT, which he already has an appt. for, and f/u with Ortho in 2-weeks for wound check. No further DCP needs are identified at this time. Payor: Angelique Lovell Medical Attending: Dr. Stiles Pt is a 68 year-old M placed in OPIB following his total R-hip arthroplasty, completed yesterday. He has a hx of worsening hip pain over the last few years, has had a few injections for the pain, however they did not have lasting benefit. He denies taking any medication for the pain, and instead has worked through the pain. He expresses already feeling much relief from his pain this morning. His spouse is bedside and will plan to transport him home after he eats lunch. Discharge Planning/Care Management CM Discharge Assessment Start: 04/07/23 14:04 Freq: Status: Active Protocol: Document 04/07/23 14:04 [facility] (Rec: 04/07/23 14:09 [facility] [id number]) Discharge Planning Assessment Assigned Jig Builder Helper SURAJ Blanchard Advance Directives? Yes Advance Directives on File No History Provided By Patient,Medical Record Has Patient been admitted in last 30 No days? Prior Living Arrangements House Household Members spouse Type of transporation used prior to Drives own vehicle admit DME Already Rented / Owned FWW / Walker Patient/Family Preference OP PT Therapy Barriers to Discharge No Discharge Plan Home Community Services Physical Therapy Referrals Initiated None needed Whiteboard Updated in Patient Room with Yes name and ext. # of Jig Builder Helper Review Status In Process Please Provide Date Initial DC 04/07/23 Assessment Was Performed
== END 2023-04-07 12:46 | disposition home or self-care (01) ==
LOC: OR 06:19 → AC 06:24
PROVIDERS: Family Provider Family Medicine; PCP Family Medicine; Referring Provider Family Medicine; Visit Provider Orthopaedic Surgery Adult Reconstructive Orthopaedic Surgery
PROC: (CPT 27130; principal; 2023-04-06 07:45)
DX: M16.11 Unilateral primary osteoarthritis, right hip (principal)
CPT/HCPCS: 27130; 73502; 76000; 85014; 85018; 97110; 97116; 97163; 97165; 97530; 97535; C1776; J0136; J0690; J1100; J2250; J2405; J3010

== ENCOUNTER → 2023-05-24 08:37 | Outpatient (CLI) | payer OTHER, SELFPAY ==
[2023-04-06 17:33] VITALS: BMI 28.6
== END ==
LOC: LAB 08:39
PROVIDERS: Family Provider Family Medicine; PCP Family Medicine; Referring Provider Urology; Visit Provider Urology
DX: N52.31 Erectile dysfunction following radical prostatectomy (principal)
CPT/HCPCS: 87086

== ENCOUNTER 2023-06-07 13:45 | Outpatient (RCR) | payer OTHER, SELFPAY ==
[2023-04-06 17:33] VITALS: BMI 28.6
--- NOTE | 2023-04-14 17:01 | PT.OIE ---
Current Diagnoses Unilateral primary osteoarthritis, right hip (04/14/23) Past Medical History (Last Updated 12/22/21 @ 19:10 by Ashley Bryan) Hearing loss Vision disorder Past Surgical History (Last Updated 12/22/21 @ 19:10 by Ashley Bryan) Anesthesia History of hernia surgery History of prostatectomy (~2018) Visit Care Team Role Provider Type Jethro Finney MD Family Provider Physician Primary Care Provider Specialty: Family Practice Address: [address] [place] [address], [facility] [address], [place], [address] Email: [email or web address] Pantera Stiles MD Attending Provider Physician Referring Provider Specialty: Orthopedics Orthopedic Surgery Address: [address] [place] [address], [id number] Email: [email or web address] Physical Therapy Initial Evaluation PT-OP-A Visit Information Start: 04/08/23 19:15 Freq: Status: Active Protocol: Document 04/14/23 09:50 LRN (Rec: 04/14/23 12:34 LRN [id number]) Out-Patient Physical Therapy Visit Information Visit Information Visit Type Initial Evaluation Visit Note Spouse present during evaluation Visit Start Time 09:50 Visit Stop Time 10:34 Visit Number Evaluation Information Evaluation Date 04/14/23 Precautions Precautions R anterior CHRISTINA precautions, WBing as tolerated. Pt has hiatal hernia, L distal end of thumb sensitivity due to nail removal from tip 3 wks ago. PT-OP-B Current Condition Start: 04/08/23 19:15 Freq: Status: Active Protocol: Document 04/14/23 09:50 [facility]N (Rec: 04/14/23 12:34 [facility]N [id number]) Current Condition History of Current Condition Onset Date 04/06/23 Current Complaints R hip pain, difficulty walking , R lower leg pain, wakes him at night. History of Current Condition R Anterior CHRISTINA 04/06/23 with one hospital stay due to Low BP. Blood pressure is now normal (119/85). Normally sleeps on side. Pt precautions: no feet in circles and hip extension. Spouse able to identify proper hip precautions. States he was told by surgeon he was not limited with rotation, and can sleep however he wants. Prior Treatments and Tests Post-op instructions of anterior CHRISTINA precautions and exercises given in hospital. Treatment Goals Patient/Caregiver Goals Pt goals: 1) Walk enough to return to work (minimum 5'), 2) sit<>stand from high and low surface without difficulty , 3) be able to get in/out of bed independently lifting R LE . 4) Independent with dressing with armature varnisher if needed and putting socks/shoes on. 5) Ambulate stairs with a step over step gait. 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 Therapy/Recovery Hx of hiatal hernia. PT-OP-C Subjective Start: 04/08/23 19:15 Freq: Status: Active Protocol: Document 04/14/23 09:50 LRN (Rec: 04/14/23 12:34 LRN [id number]) Patient Questionnaires Lower Extremity Functional Scale LEFS Score 18 LEFS Impairment 60 to 79% Impaired (Score 17- 31) OP-PT Pain Assessment Pain Assessment Grid Paper Pain Assessment Grid Completed Yes Location Right Hip Pain Location Details Anterior hip and down anterior LE and posterior knee/lower leg Intensity 7 Scale Used Numeric (0 - 10) Description Aching Frequency Constant Other Pain Alleviating Factors tylenol 4x/day (1000 mg), occasional 5 mg oxycodone. PT-OP-G Mobility & Gait Start: 04/08/23 19:15 Freq: Status: Active Protocol: Document 04/14/23 09:50 LRN (Rec: 04/14/23 12:34 LRN [id number]) OP Mobility Evaluation Bed Mobility Supine to and from Sit Pt self assist of R LE to lift leg on plinth. Transfers Sit to Stand Independent. OP Gait Assessment Gait Gait Assistance Required: Independent Distance (Feet) 200 Able to Maintain Weight Bearing Status Yes During Gait Assistive Devices Assistive Device 4 Wheeled Walker Orthotic/Prosthetic Devices or Brace: No Gait Deviations General Gait Pattern Antalgic,Flexed Trunk,Wide Based Gait Comments Gait Comments Walker too short: walks with flexion at hips ~45 deg's, R hip going into ~10 deg's hip ext and 20 deg's ER. Stair Climbing Evaluation Comments Stair Climbing Comments Pt states 4 steps into house with step to step gait. PT-OP-H Neuro Start: 04/08/23 19:15 Freq: Status: Active Protocol: Document 04/14/23 09:50 LRN (Rec: 04/14/23 12:34 LRN [id number]) Sensation Evaluation Gross Sensation Gross Sensation WNL PT-OP-J Posture/Palpation/Skin Start: 04/08/23 19:15 Freq: Status: Active Protocol: Document 04/14/23 09:50 [facility]N (Rec: 04/14/23 12:34 LRN [id number]) Posture Evaluation Comments Posture Comments R hip ~15 deg's flexion and feet in 25 deg's ER. PT-OP-K Range of Motion Start: 04/08/23 19:15 Freq: Status: Active Protocol: Document 04/14/23 09:50 LRN (Rec: 04/14/23 12:34 LRN [id number]) Hip Goniometric Range of Motion Hip Right Passive Hip ROM WFL No Testing Position Supine Flexion w/Knee Flexed 83 Comments Extension is lacking 8 deg's to neutral. Hip Ext, AB, ER/IR not assessed due to anterior CHRISTINA precautions. PT-OP-M Strength Start: 04/08/23 19:15 Freq: Status: Active Protocol: Document 04/14/23 09:50 LRN (Rec: 04/14/23 12:34 LRN [id number]) Hip Strength Hip Manual Muscle Testing Right Flexion (L2) 1 Trace Adduction 2+ Poor+ Comments Hip Ext, AB, ER not assessed due to anterior CHRISTINA precautions. PT-OP-Q Treatments Start: 04/08/23 19:15 Freq: Status: Active Protocol: Document 04/14/23 09:50 LRN (Rec: 04/14/23 12:34 LRN [id number]) Therapeutic Exercises Supine Exercises Heel slides Supine Exercise Name Heel slides, with assist of slidig on towel Side right Equipment Used towel to reduce friction. Reps/Minutes 3x Comments Pt needs initiation of movement before independent with slide. Quad sets Supine Exercise Name Quad sets Side right Equipment Used Pillow under knee Reps/Minutes 5x Comments Pt is not able to tolerate full knee ext due to anterior hip pain Gait Training Gait Activity Gait w/4WW Description Gait training for no R hip ext , RLE in neutral (avoiding ER/ AB) Device Used 4WW Level of Assistance Independent Surface Level Treatment Focus Adhering to R anterior CHRISTINA precautions. No R hip ext, ER , AB Comments Pt spouse aware of CHRISTINA precautions. Self-Care/Home Management Treatment Education Patient Education Pain Management Other Education Discussed results of evaluation, goals, attendance, and plan of care (POC). Pt agreeable to goals, to attendance and POC. Reviewed R CHRISTINA anterior hip precautions. Activities Self-Care/Home Management Activities I/S pt to use cold pack at home for pain management. PT-OP-T Assessment and Plan Start: 04/08/23 19:15 Freq: Status: Active Protocol: Document 04/14/23 09:50 LRN (Rec: 04/14/23 12:34 LRN [id number]) Physical Therapy Assessment Rehab Potential Rehabilitation Potential Good Evaluation Complexity Number of Personal Factors/Comorbidities 1-2 Number of Body Systems Impaired 4 or More Clinical Presentation at Evaluation Evolving Impairments Impairments Activity Tolerance,Balance, Gait,Pain,Posture,ROM,Soft Tissue Mobility,Strength, Transfers Goals Four Impairment Decreased endurance. Senior Production Planner Goal (LTG) Walk with cane or without assistive device, enough to return to work (minimal 5'). LTG Duration 6 wks-05/26/23 Three Impairment Decreased R hip Strength Short Term Goal (STG) be able to get in/out of bed by independently lifting R LE. STG Duration 2 wks-04/29/23 [facility] Goal (LTG) Amb stairs with step over step gait LTG Duration 6 wks-05/26/23 One Impairment Pt lacks appropriate self care HEP. Short Term Goal (STG) sit<>stand from high and low surface without difficulty, STG Duration 4 wks-05/13/23 Senior Production Planner Goal (LTG) Pt will be independent in an effective self care HEP for core/hip strengthening and mobility ex's. LTG Duration 8 wks-06/10/23 Two Impairment Decreased R hip ROM Short Term Goal (STG) Improve R hip flex ROM in sitting 90 deg's and IR 45 deg 's. STG Duration 4 wks-05/13/23 [facility] Goal (LTG) Independent with dressing with armature varnisher if needed and putting socks/shoes on. LTG Duration 6 wks-05/26/23 Assessment Summary Assessment Pt is a 68 yo male who is s/p R anterior CHRISTINA 04/06/23, one night in hospital. He demonstrates a hip flexion contracture, lacking ability to achieve neutral position in supine. As expected he is decreased in R hip/LE strength , ROM and function (walking with 4WW, antalgic gait, and step to step gait). Pt requires self UE assist for transfers in/out of bed. He is not familiar with CHRISTINA precautions, but his spouse is aware and able to recall precautions. The pt will benefit from skilled physical therapy to first reduce muscle guarding, pain with modalities, manual therapy, ROM, strengthening, gait and bed mobility training, and education for self care HEP and modalities for pain. Physical Therapy Plan Frequency and Duration Frequency of Treatment 2x/Week Duration of treatment (weeks) 8 Plan of Care Start Date 04/14/23 Plan of Care End Date 06/10/23 Therapeutic Interventions Therapeutic Interventions Balance Training,Home Exercise Program,Manual Therapy, Neuromuscular Re-education, Patient/Caregiver Education, Self-Care/Home Management,Soft Tissue Mobilization,Taping, Therapeutic Activities, Therapeutic Exercises Modalities Cold Pack/Ice Massage,Hot Packs Next Visit Focus/Plan Next Note Type Treatment Note Next Visit Plan Assess Laisha's RLE, sit<>stand ex (TUG), review gait training to adhere to anterior CHRISTINA precautions, and gait (2 or 6 minute gait) if appropriate walker hgt. Check sitting R hip IR AROM & L hip ROM/strength. Review HEP with spouse/pt. Pt education-self care pain managment, Manual therapy ( edema). Therapeutic Exercises, Therapeutic Activities ( transfers in/out of bed), Neuromuscular Reeducation ( core stab, balance, gait & stair training to be without assist device and normal gait.
--- NOTE | 2023-04-14 17:02 | PT.OPPOC ---
Physical, Occupational & Speech Therapy At [facility] Current Diagnoses Unilateral primary osteoarthritis, right hip (04/14/23) Visit Care Team Role Provider Type Jethro Finney MD Family Provider Physician Primary Care Provider Specialty: Family Practice Address: [address] [place] [address], [address], [address] Email: [email or web address] Pantera Stiles MD Attending Provider Physician Referring Provider Specialty: Orthopedics Orthopedic Surgery Address: [address] [place] [address], [id number] Email: [email or web address] Plan Of Care PT-OP-T Assessment and Plan Start: 04/08/23 19:15 Freq: Status: Active Protocol: Document 04/14/23 09:50 LRN (Rec: 04/14/23 12:34 LRN [id number]) Physical Therapy Assessment Rehab Potential Rehabilitation Potential Good Evaluation Complexity Number of Personal Factors/Comorbidities 1-2 Number of Body Systems Impaired 4 or More Clinical Presentation at Evaluation Evolving Impairments Impairments Activity Tolerance,Balance, Gait,Pain,Posture,ROM,Soft Tissue Mobility,Strength, Transfers Goals Four Impairment Decreased endurance. [facility] Goal (LTG) Walk with cane or without assistive device, enough to return to work (minimal 5'). LTG Duration 6 wks-05/26/23 Three Impairment Decreased R hip Strength Short Term Goal (STG) be able to get in/out of bed by independently lifting R LE. STG Duration 2 wks-04/29/23 Analysis Engineer Goal (LTG) Amb stairs with step over step gait LTG Duration 6 wks-05/26/23 One Impairment Pt lacks appropriate self care HEP. Short Term Goal (STG) sit<>stand from high and low surface without difficulty, STG Duration 4 wks-05/13/23 [facility] Goal (LTG) Pt will be independent in an effective self care HEP for core/hip strengthening and mobility ex's. LTG Duration 8 wks-06/10/23 Two Impairment Decreased R hip ROM Short Term Goal (STG) Improve R hip flex ROM in sitting 90 deg's and IR 45 deg 's. STG Duration 4 wks-05/13/23 [facility] Goal (LTG) Independent with dressing with can bander operator if needed and putting socks/shoes on. LTG Duration 6 wks-05/26/23 Assessment Summary Assessment Pt is a 68 yo male who is s/p R anterior CHRISTINA 04/06/23, one night in hospital. He demonstrates a hip flexion contracture, lacking ability to achieve neutral position in supine. As expected he is decreased in R hip/LE strength , ROM and function (walking with 4WW, antalgic gait, and step to step gait). Pt requires self UE assist for transfers in/out of bed. He is not familiar with CHRISTINA precautions, but his spouse is aware and able to recall precautions. The pt will benefit from skilled physical therapy to first reduce muscle guarding, pain with modalities, manual therapy, ROM, strengthening, gait and bed mobility training, and education for self care HEP and modalities for pain. Physical Therapy Plan Frequency and Duration Frequency of Treatment 2x/Week Duration of treatment (weeks) 8 Plan of Care Start Date 04/14/23 Plan of Care End Date 06/10/23 Therapeutic Interventions Therapeutic Interventions Balance Training,Home Exercise Program,Manual Therapy, Neuromuscular Re-education, Patient/Caregiver Education, Self-Care/Home Management,Soft Tissue Mobilization,Taping, Therapeutic Activities, Therapeutic Exercises Modalities Cold Pack/Ice Massage,Hot Packs Next Visit Focus/Plan Next Note Type Treatment Note Next Visit Plan Assess Laisha's RLE, sit<>stand ex (TUG), review gait training to adhere to anterior CHRISTINA precautions, and gait (2 or 6 minute gait) if appropriate walker hgt. Check sitting R hip IR AROM & L hip ROM/strength. Review HEP with spouse/pt. Pt education-self care pain managment, Manual therapy ( edema). Therapeutic Exercises, Therapeutic Activities ( transfers in/out of bed), Neuromuscular Reeducation ( core stab, balance, gait & stair training to be without assist device and normal gait. Plan of Care Dates Plan of Care Start Date 04/14/23 Plan of Care End Date 06/10/23 Electronically Signed by: Sarah Queen, PT 04/14/23 0714 If you are in agreement with this Plan of Care, please return a signed and dated copy. I have reviewed this Plan of Care and certify that the skilled therapy services above are required to meet the patient?s needs. Physician Signature Date Printed Name and Credentials Clinical Instructor Signature Printed Name and Credentials
--- NOTE | 2023-04-19 17:06 | PT.OTN ---
Current Diagnoses Unilateral primary osteoarthritis, right hip (04/19/23) Physical Therapy Treatment Note PT-OP-A Visit Information Start: 04/08/23 19:15 Freq: Status: Active Protocol: Document 04/19/23 07:29 LRN (Rec: 04/19/23 08:19 LRN [id number]) Out-Patient Physical Therapy Visit Information Visit Information Visit Type Treatment Note Visit Start Time 07:29 Visit Stop Time 08:10 Visit Number 60 Evaluation Information Evaluation Date 04/14/23 Precautions Precautions R anterior CHRISTINA precautions, WBing as tolerated. Pt has hiatal hernia, L distal end of thumb sensitivity due to nail removal from tip 3 wks ago. PT-OP-B Current Condition Start: 04/08/23 19:15 Freq: Status: Active Protocol: Document 04/14/23 09:50 LRN (Rec: 04/14/23 12:34 LRN [id number]) Current Condition History of Current Condition Onset Date 04/06/23 Current Complaints R hip pain, difficulty walking , R lower leg pain, wakes him at night. History of Current Condition R Anterior CHRISTINA 04/06/23 with one hospital stay due to Low BP. Blood pressure is now normal (119/85). Normally sleeps on side. Pt precautions: no feet in circles and hip extension. Spouse able to identify proper hip precautions. States he was told by surgeon he was not limited with rotation, and can sleep however he wants. Prior Treatments and Tests Post-op instructions of anterior CHRISTINA precautions and exercises given in hospital. Treatment Goals Patient/Caregiver Goals Pt goals: 1) Walk enough to return to work (minimum 5'), 2) sit<>stand from high and low surface without difficulty , 3) be able to get in/out of bed independently lifting R LE . 4) Independent with dressing with supervisor livestock yard if needed and putting socks/shoes on. 5) Ambulate stairs with a step over step gait. 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 Therapy/Recovery Hx of hiatal hernia. PT-OP-C Subjective Start: 04/08/23 19:15 Freq: Status: Active Protocol: Document 04/19/23 07:29 LRN (Rec: 04/19/23 08:19 LRN [id number]) OP-PT Subjective Patient Comments Patient Comments Back to work, 1/2 days 5 days/ wk, started yestday. Iced hip after work. Pain rated currently 2-3/10. PT-OP-E Functional Tests Start: 04/19/23 16:57 Freq: Status: Active Protocol: Document 04/19/23 07:29 LRN (Rec: 04/19/23 16:59 LRN [id number]) Functional Tests 30 Second Sit to Stand Test Score 10x Comments No use of UE's, in webbed chair. Five Times Sit to Stand Test Score 15 secs Comments No use of UE's, in webbed chair. PT-OP-G Mobility & Gait Start: 04/08/23 19:15 Freq: Status: Active Protocol: Document 04/14/23 09:50 LRN (Rec: 04/14/23 12:34 LRN [id number]) OP Mobility Evaluation Bed Mobility Supine to and from Sit Pt self assist of R LE to lift leg on plinth. Transfers Sit to Stand Independent. OP Gait Assessment Gait Gait Assistance Required: Independent Distance (Feet) 200 Able to Maintain Weight Bearing Status Yes During Gait Assistive Devices Assistive Device 4 Wheeled Walker Orthotic/Prosthetic Devices or Brace: No Gait Deviations General Gait Pattern Antalgic,Flexed Trunk,Wide Based Gait Comments Gait Comments Walker too short: walks with flexion at hips ~45 deg's, R hip going into ~10 deg's hip ext and 20 deg's ER. Stair Climbing Evaluation Comments Stair Climbing Comments Pt states 4 steps into house with step to step gait. PT-OP-H Neuro Start: 04/08/23 19:15 Freq: Status: Active Protocol: Document 04/14/23 09:50 LRN (Rec: 04/14/23 12:34 LRN [id number]) Sensation Evaluation Gross Sensation Gross Sensation WNL PT-OP-J Posture/Palpation/Skin Start: 04/08/23 19:15 Freq: Status: Active Protocol: Document 04/14/23 09:50 LRN (Rec: 04/14/23 12:34 LRN [id number]) Posture Evaluation Comments Posture Comments R hip ~15 deg's flexion and feet in 25 deg's ER. PT-OP-K Range of Motion Start: 04/08/23 19:15 Freq: Status: Active Protocol: Document 04/14/23 09:50 LRN (Rec: 04/14/23 12:34 LRN [id number]) Hip Goniometric Range of Motion Hip Right Passive Hip ROM WFL No Testing Position Supine Flexion w/Knee Flexed 83 Comments Extension is lacking 8 deg's to neutral. Hip Ext, AB, ER/IR not assessed due to anterior CHRISTINA precautions. PT-OP-M Strength Start: 04/08/23 19:15 Freq: Status: Active Protocol: Document 04/14/23 09:50 LRN (Rec: 04/14/23 12:34 LRN [id number]) Hip Strength Hip Manual Muscle Testing Right Flexion (L2) 1 Trace Adduction 2+ Poor+ Comments Hip Ext, AB, ER not assessed due to anterior CHRISTINA precautions. PT-OP-Q Treatments Start: 04/08/23 19:15 Freq: Status: Active Protocol: Document 04/19/23 07:29 LRN (Rec: 04/19/23 08:19 LRN [id number]) Therapeutic Exercises Supine Exercises Hip AD Supine Exercise Name Assisted hip AD/AB Side right Reps/Minutes 8x SLR Supine Exercise Name Assisted SLR Side right GS/Bridge Supine Exercise Name Glut squeeze/Half Bridge Reps/Minutes 15x Heel slides Supine Exercise Name Heel slides, with assist of slidig on towel Side right Equipment Used towel to reduce friction. Reps/Minutes 15x Comments Pt needs initiation of movement before independent with slide. Quad sets Supine Exercise Name Quad set Side right Reps/Minutes 10 SH x 10 Sitting Exercises Sit<>Stand Sitting Exercise Name Sit<>stand Reps/Minutes 10x Comments 5XSTS - 15 secs, 30 sec STS - 10x Gait Training Gait Activity Gait w/SPC Description Gait w/SPC Device Used SPC Level of Assistance Indep Surface Level Distance/Duration 14' Treatment Focus Correct RLE ER & pt practice turning to R. Comments TUG 14 & 12 secs. 5' walk for distance and gait mechanics (924 ft) and practice of gait between ex's. PT-OP-T Assessment and Plan Start: 04/08/23 19:15 Freq: Status: Active Protocol: Document 04/19/23 07:29 LRN (Rec: 04/19/23 08:19 LRN [id number]) Physical Therapy Assessment Goals Four Impairment Decreased endurance. Alf Goal (LTG) Walk with cane or without assistive device, enough to return to work (minimal 5'). 04/19/23: 5' Walk Test - 924 ft LTG Duration 6 wks-05/26/23 Three Impairment Decreased R hip Strength Short Term Goal (STG) be able to get in/out of bed by independently lifting R LE. 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 Short Term Goal (STG) sit<>stand from high and low surface without difficulty, 04/19/23: From webbed chair: 5xSTS - 15 secs, 30 sec STS - 10x STG Duration 4 wks-05/13/23 Alf Goal (LTG) Pt will be independent in an effective self care HEP for core/hip strengthening and mobility ex's. 04/19/23: Pt told to incr strengthening ex to 3 sets of 10 or 15 reps. LTG Duration 8 wks-06/10/23 progressed Two Impairment Decreased R hip ROM Short Term Goal (STG) Improve R hip flex ROM in sitting 90 deg's and IR 45 deg 's. STG Duration 4 wks-05/13/23 Alf Goal (LTG) Independent with dressing with supervisor livestock yard if needed and putting socks/shoes on. LTG Duration 6 wks-05/26/23 Assessment Summary Assessment 68 yo male who is 2 wks po R anterior CHRISTINA 04/06/23. Negative Laisha's RLE. TUG 12 secs. 5XSTS 15 secs, 30 sec STS - 10x. Pt tends to ER RLE and turns to L rather than R. 5' walk w/SPC - 924 ft. Pt identified 2/3 CHRISTINA precautions (ext, AB). Improved gait mechanics with training of R LE positioning and use of SPC on L side vs R side. Pt progressing very quickly, probably due to high tolerance to pain. Physical Therapy Plan Frequency and Duration Frequency of Treatment 2x/Week Duration of treatment (weeks) 8 Plan of Care Start Date 04/14/23 Plan of Care End Date 06/10/23 Next Visit Focus/Plan Next Note Type Treatment Note Next Visit Plan Gait training to adhere to anterior CHRISTINA precautions, and cont'd review. Check sitting R hip IR AROM & L hip ROM/ strength. Gait trng, strengthening hip AB (TONY and up to 15-30 deg's). Pt education-self care pain managment, Manual therapy ( edema), balance trng. Therapeutic Exercises, Therapeutic Activities ( transfers in/out of bed), Neuromuscular Reeducation ( core stab, balance, gait & stair training to be without assist device and normal gait.
--- NOTE | 2023-05-06 15:46 | PT.OTN ---
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 Pt has hiatal hernia, L distal end of thumb sensitivity due to nail removal from tip 3 wks ago. PT-OP-B Current Condition Start: 04/08/23 19:15 Freq: Status: Active Protocol: Document 04/14/23 09:50 LRN (Rec: 04/14/23 12:34 LRN [id number]) Current Condition History of Current Condition Onset Date 04/06/23 Current Complaints R hip pain, difficulty walking , R lower leg pain, wakes him at night. History of Current Condition R Anterior CHRISTINA 04/06/23 with one hospital stay due to Low BP. Blood pressure is now normal (119/85). Normally sleeps on side. Pt precautions: no feet in circles and hip extension. Spouse able to identify proper hip precautions. States he was told by surgeon he was not limited with rotation, and can sleep however he wants. Prior Treatments and Tests Post-op instructions of anterior CHRISTINA precautions and exercises given in hospital. Treatment Goals Patient/Caregiver Goals Pt goals: 1) Walk enough to return to work (minimum 5'), 2) sit<>stand from high and low surface without difficulty , 3) be able to get in/out of bed independently lifting R LE . 4) Independent with dressing with rig builder helper if needed and putting socks/shoes on. 5) Ambulate stairs with a step over step gait. 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 Therapy/Recovery Hx of hiatal hernia. PT-OP-C Subjective Start: 04/08/23 19:15 Freq: Status: Active Protocol: Document 05/06/23 08:16 LRN (Rec: 05/06/23 09:04 LRN [id number]) OP-PT Subjective Patient Comments Patient Comments R hip pain sometimes, depends on the day. Yesterday didn' t hurt at all. Pain rated 1 /10. Pain with SLR; therefore stopped doing the ex . See's MD in about 2 more weeks. PT-OP-E Functional Tests Start: 04/19/23 16:57 Freq: Status: Active Protocol: Document 04/19/23 07:29 LRN (Rec: 04/19/23 16:59 LRN [id number]) Functional Tests 30 Second Sit to Stand Test Score 10x Comments No use of UE's, in webbed chair. Five Times Sit to Stand Test Score 15 secs Comments No use of UE's, in webbed chair. PT-OP-G Mobility & Gait Start: 04/08/23 19:15 Freq: Status: Active Protocol: Document 04/14/23 09:50 LRN (Rec: 04/14/23 12:34 LRN [id number]) OP Mobility Evaluation Bed Mobility Supine to and from Sit Pt self assist of R LE to lift leg on plinth. Transfers Sit to Stand Independent. OP Gait Assessment Gait Gait Assistance Required: Independent Distance (Feet) 200 Able to Maintain Weight Bearing Status Yes During Gait Assistive Devices Assistive Device 4 Wheeled Walker Orthotic/Prosthetic Devices or Brace: No Gait Deviations General Gait Pattern Antalgic,Flexed Trunk,Wide Based Gait Comments Gait Comments Walker too short: walks with flexion at hips ~45 deg's, R hip going into ~10 deg's hip ext and 20 deg's ER. Stair Climbing Evaluation Comments Stair Climbing Comments Pt states 4 steps into house with step to step gait. PT-OP-H Neuro Start: 04/08/23 19:15 Freq: Status: Active Protocol: Document 04/14/23 09:50 LRN (Rec: 04/14/23 12:34 LRN [id number]) Sensation Evaluation Gross Sensation Gross Sensation WNL PT-OP-J Posture/Palpation/Skin Start: 04/08/23 19:15 Freq: Status: Active Protocol: Document 04/14/23 09:50 LRN (Rec: 04/14/23 12:34 LRN [id number]) Posture Evaluation Comments Posture Comments R hip ~15 deg's flexion and feet in 25 deg's ER. PT-OP-K Range of Motion Start: 04/08/23 19:15 Freq: Status: Active Protocol: Document 04/14/23 09:50 LRN (Rec: 04/14/23 12:34 LRN [id number]) Hip Goniometric Range of Motion Hip Right Passive Hip ROM WFL No Testing Position Supine Flexion w/Knee Flexed 83 Comments Extension is lacking 8 deg's to neutral. Hip Ext, AB, ER/IR not assessed due to anterior CHRISTINA precautions. PT-OP-M Strength Start: 04/08/23 19:15 Freq: Status: Active Protocol: Document 04/14/23 09:50 LRN (Rec: 04/14/23 12:34 LRN [id number]) Hip Strength Hip Manual Muscle Testing Right Flexion (L2) 1 Trace Adduction 2+ Poor+ Comments Hip Ext, AB, ER not assessed due to anterior CHRISTINA precautions. PT-OP-Q Treatments Start: 04/08/23 19:15 Freq: Status: Active Protocol: Document 05/06/23 08:16 LRN (Rec: 05/06/23 09:04 LRN [id number]) Therapeutic Exercises Supine Exercises BKFO/Ulisses AD Supine Exercise Name BKFO/Ulisses AD Side bilateral Reps/Minutes 3' GS/Bridge Supine Exercise Name Glut squeeze/Half Bridge Reps/Minutes 15x Sitting Exercises LAQ Sitting Exercise Name LAQ Side right Reps/Minutes 5 SH x 20x Comments Cued to hold 5 secs and do 2- 3x/day Hip Abd Sitting Exercise Name Isometric Side bilateral Equipment Used TBand Reps/Minutes 5 SH x 15 Sit<>Stand Sitting Exercise Name Sit<>stand Reps/Minutes 10x 3 Comments 5XSTS - 11 secs, 30 sec STS - 12x Standing Exercises Step ups Standing Exercise Name 4 step ups Side bilateral Reps/Minutes 10x each Gait Training Gait Activity Gait Description Gait training for limiting hip ext and start of hip sway. Device Used None Surface Level Distance/Duration 25x 4 Treatment Focus Hip sway PT-OP-T Assessment and Plan Start: 04/08/23 19:15 Freq: Status: Active Protocol: Document 05/06/23 08:16 LRN (Rec: 05/06/23 09:04 LRN [id number]) Physical Therapy Assessment Goals Four Impairment Decreased endurance. Fdc Goal (LTG) Walk with cane or without assistive device, enough to return to work (minimal 5'). 04/19/23: 5' Walk Test - 924 ft LTG Duration 6 wks-05/26/23 Three Impairment Decreased R hip Strength Short Term Goal (STG) be able to get in/out of bed by independently lifting R LE. 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 Short Term Goal (STG) sit<>stand from high and low surface without difficulty, 04/19/23: From webbed chair: 5xSTS - 15 secs, 30 sec STS - 10x 04/27/23: Glute Bridge, SAQ. 05/06/23: 5xSTS - 11 secs, 30 sec STS -12x STG Duration 4 wks-05/13/23 Insurance Sales Assistant Goal (LTG) Pt will be independent in an effective self care HEP for core/hip strengthening and mobility ex's. 04/19/23: Pt told to incr strengthening ex to 3 sets of 10 or 15 reps. 05/06/23: I/S in HEP: Sitting LAQ, Supine: Bridge to painfree range & Andrea BKFO w/ TB and ball. LTG Duration 8 wks-06/10/23 progressed Two Impairment Decreased R hip ROM Impairment UE Quickdash score 20 (20-39% impaired, score 20-39) 09/16/22: UE Quickdash score 47 (40-59% impaired, score 40- 59) Short Term Goal (STG) Improve R hip flex ROM in sitting 90 deg's and IR 45 deg 's. 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 LTG Duration 6 wks-05/26/23 Assessment Summary Assessment Pt is 4 wks (almost 5 wks) po R anterior CHRISTINA (04/06/23). Pt has been able to recall 3 CHRISTINA precautions. Pt progressing well. Gait mechanics demonstrates too much upper body sway. Use of cane until pt can be weaned off, because of pain at times in R hip. Physical Therapy Plan Frequency and Duration Frequency of Treatment 2x/Week Duration of treatment (weeks) 8 Plan of Care Start Date 04/14/23 Plan of Care End Date 06/10/23 Next Visit Focus/Plan Next Note Type Treatment Note Next Visit Plan Asesses: 6' Walk Test, and goal2: sitting hip ROM flex/IR & dressing abilities/needs. Check sitting R hip IR AROM & L hip ROM/strength. Gait trng, strengthening hip AB ( ULISSES and up to 15-30 deg's). Pt education-self care pain managment, Manual therapy ( edema), balance trng. POC: Therapeutic Exercises, Therapeutic Activities ( transfers in/out of bed), Neuromuscular Reeducation ( core stab, balance, gait & stair training to be without assist device and normal gait.
--- NOTE | 2023-05-10 15:42 | PT.OTN ---
Current Diagnoses Unilateral primary osteoarthritis, right hip (05/10/23) Physical Therapy Treatment Note PT-OP-A Visit Information Start: 04/08/23 19:15 Freq: Status: Active Protocol: Document 05/10/23 14:36 LRN (Rec: 05/10/23 15:42 LRN [id number]) Out-Patient Physical Therapy Visit Information Visit Information Visit Type Treatment Note Visit Start Time 14:36 Visit Stop Time 15:16 Visit Number Evaluation Information Evaluation Date 04/14/23 Precautions Precautions R anterior CHRISTINA precautions, WBing as tolerated. Pt has hiatal hernia, L distal end of thumb sensitivity due to nail removal from tip 3 wks ago. PT-OP-B Current Condition Start: 04/08/23 19:15 Freq: Status: Active Protocol: Document 04/14/23 09:50 LRN (Rec: 04/14/23 12:34 LRN [id number]) Current Condition History of Current Condition Onset Date 04/06/23 Current Complaints R hip pain, difficulty walking , R lower leg pain, wakes him at night. History of Current Condition R Anterior CHRISTINA 04/06/23 with one hospital stay due to Low BP. Blood pressure is now normal (119/85). Normally sleeps on side. Pt precautions: no feet in circles and hip extension. Spouse able to identify proper hip precautions. States he was told by surgeon he was not limited with rotation, and can sleep however he wants. Prior Treatments and Tests Post-op instructions of anterior CHRISTINA precautions and exercises given in hospital. Treatment Goals Patient/Caregiver Goals Pt goals: 1) Walk enough to return to work (minimum 5'), 2) sit<>stand from high and low surface without difficulty , 3) be able to get in/out of bed independently lifting R LE . 4) Independent with dressing with cooker chip if needed and putting socks/shoes on. 5) Ambulate stairs with a step over step gait. 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 Therapy/Recovery Hx of hiatal hernia. PT-OP-C Subjective Start: 04/08/23 19:15 Freq: Status: Active Protocol: Document 05/10/23 14:36 LRN (Rec: 05/10/23 15:42 LRN [id number]) OP-PT Subjective Patient Comments Patient Comments Able to put socks/shoes on for first time yesterday w/o a problem. States L hip pain only on initial standing for a few steps. Is using ice at home for pain. PT-OP-E Functional Tests Start: 04/19/23 16:57 Freq: Status: Active Protocol: Document 05/10/23 14:36 LRN (Rec: 05/10/23 15:42 LRN [id number]) Functional Tests 6 Minute Walk Test Distance 1316 ft Device Used None Comments Mild shoulder sway. 30 Second Sit to Stand Test Score 19 times Comments No use of UE's, in webbed chair. Five Times Sit to Stand Test Score 8 secs Comments No use of UE's, in webbed chair. PT-OP-G Mobility & Gait Start: 04/08/23 19:15 Freq: Status: Active Protocol: Document 04/14/23 09:50 LRN (Rec: 04/14/23 12:34 LRN [id number]) OP Mobility Evaluation Bed Mobility Supine to and from Sit Pt self assist of R LE to lift leg on plinth. Transfers Sit to Stand Independent. OP Gait Assessment Gait Gait Assistance Required: Independent Distance (Feet) 200 Able to Maintain Weight Bearing Status Yes During Gait Assistive Devices Assistive Device 4 Wheeled Walker Orthotic/Prosthetic Devices or Brace: No Gait Deviations General Gait Pattern Antalgic,Flexed Trunk,Wide Based Gait Comments Gait Comments Walker too short: walks with flexion at hips ~45 deg's, R hip going into ~10 deg's hip ext and 20 deg's ER. Stair Climbing Evaluation Comments Stair Climbing Comments Pt states 4 steps into house with step to step gait. PT-OP-H Neuro Start: 04/08/23 19:15 Freq: Status: Active Protocol: Document 04/14/23 09:50 LRN (Rec: 04/14/23 12:34 LRN [id number]) Sensation Evaluation Gross Sensation Gross Sensation WNL PT-OP-J Posture/Palpation/Skin Start: 04/08/23 19:15 Freq: Status: Active Protocol: Document 04/14/23 09:50 LRN (Rec: 04/14/23 12:34 LRN [id number]) Posture Evaluation Comments Posture Comments R hip ~15 deg's flexion and feet in 25 deg's ER. PT-OP-K Range of Motion Start: 04/08/23 19:15 Freq: Status: Active Protocol: Document 04/14/23 09:50 LRN (Rec: 04/14/23 12:34 LRN [id number]) Hip Goniometric Range of Motion Hip Right Passive Hip ROM WFL No Testing Position Supine Flexion w/Knee Flexed 83 Comments Extension is lacking 8 deg's to neutral. Hip Ext, AB, ER/IR not assessed due to anterior CHRISTINA precautions. PT-OP-M Strength Start: 04/08/23 19:15 Freq: Status: Active Protocol: Document 04/14/23 09:50 LRN (Rec: 04/14/23 12:34 LRN [id number]) Hip Strength Hip Manual Muscle Testing Right Flexion (L2) 1 Trace Adduction 2+ Poor+ Comments Hip Ext, AB, ER not assessed due to anterior CHRISTINA precautions. PT-OP-Q Treatments Start: 04/08/23 19:15 Freq: Status: Active Protocol: Document 05/10/23 14:36 LRN (Rec: 05/10/23 15:42 LRN [id number]) Therapeutic Exercises Supine Exercises BKFO/Ulisses AD Supine Exercise Name BKFO/Ulisses AD Side bilateral Equipment Used L1 TB Reps/Minutes 3' SAQ Supine Exercise Name SAQ Side right Equipment Used small bolster under knee Reps/Minutes 30x SLR Supine Exercise Name SLR Side right Reps/Minutes 5x 2 rest between bouts Comments cues for decreased range GS/Bridge Supine Exercise Name Glut squeeze/Half Bridge Reps/Minutes 20x Heel slides Supine Exercise Name Heel slides Side right Reps/Minutes 15x 2 Comments No assist needed. Sitting Exercises Sit<>Stand Sitting Exercise Name Sit<>stand Reps/Minutes 10x 3 Comments 5XSTS - 8 secs, 30 sec STS - 19x Standing Exercises 6' walk test Standing Exercise Name 6' walk Equipment Used none Reps/Minutes 6' Comments 1316 ft Self-Care/Home Management Treatment Education Patient Education Pain Management Other Education Discussed use of cryotherapy for pain management to L hip after exercises. PT-OP-T Assessment and Plan Start: 04/08/23 19:15 Freq: Status: Active Protocol: Document 05/10/23 14:36 LRN (Rec: 05/10/23 15:42 LRN [id number]) Physical Therapy Assessment Goals Four Impairment Decreased endurance. Custodial Goal (LTG) Walk with cane or without assistive device, enough to return to work (minimal 5'). 04/19/23: 5' Walk Test - 924 ft. 05/10/23: 6' Walk Test - 1316 ft LTG Duration 6 wks-05/26/23 (05/10/23: MET GOAL) Three Impairment Decreased R hip Strength Short Term Goal (STG) be able to get in/out of bed by independently lifting R LE. STG Duration 2 wks-04/29/23 (04/19/23: MET GOAL) [employer] Goal (LTG) Amb stairs with step over step gait LTG Duration 6 wks-05/26/23 One Impairment Pt lacks appropriate self care HEP. Short Term Goal (STG) sit<>stand from high and low surface without difficulty, 04/19/23: From webbed chair: 5xSTS - 15 secs, 30 sec STS - 10x 04/27/23: Glute Bridge, SAQ. 05/06/23: 5xSTS - 11 secs, 30 sec STS -12x 05/10/23: 5xSTS - 8 secs, 30 sec STS - 19x STG Duration 4 wks-05/13/23 (05/10/23: MET GOAL) Custodial Goal (LTG) Pt will be independent in an effective self care HEP for core/hip strengthening and mobility ex's. 04/19/23: Pt told to incr strengthening ex to 3 sets of 10 or 15 reps. 05/06/23: I/S in HEP: Sitting LAQ, Supine: Bridge to painfree range & Andrea BKFO w/ TB and ball. LTG Duration 8 wks-06/10/23 progressed Two Impairment Decreased R hip ROM Impairment UE Quickdash score 20 (20-39% impaired, score 20-39) 09/16/22: UE Quickdash score 47 (40-59% impaired, score 40- 59) Short Term Goal (STG) Improve R hip flex ROM in sitting 90 deg's and IR 45 deg 's. 05/10/23: R hip flex AROM is sitting 120 deg's, IR 30 deg's (L hip 28 deg's). STG Duration 4 wks-05/13/23 progressed (need improved hip IR) Custodial Goal (LTG) Independent with dressing with cooker chip if needed and putting socks/shoes on. 05/10/23: Yesterday able to put socks/shoes on like normal , no cooker chip needed. LTG Duration 6 wks-05/26/23 (05/10/23: MET GOAL) Assessment Summary Assessment Pt is 5 wks po R anterior CHRISTINA (04/06/23). 6 min walk test - 1316 ft. 5xSTS -8 secs, 30 sec STS -19 times is above norm values; therefore pt's endurance is very good. His hip flex ROM has improved with ability to dress w/o need for cooker chip. Hip IR ROM goal not yet met. Physical Therapy Plan Frequency and Duration Frequency of Treatment 2x/Week Duration of treatment (weeks) 8 Plan of Care Start Date 04/14/23 Plan of Care End Date 06/10/23 Next Visit Focus/Plan Next Note Type Treatment Note Next Visit Plan Probable DC in 3 wks. Assess stair gait and improve sitting hip IR ROM (goal 2). Check sitting L hip ROM/strength. Strengthening hip AB (ULISSES and up to 15-30 deg's). Start Gait trng (6 wks hip ext ) & balance trng. POC: Therapeutic Exercises, Therapeutic Activities ( transfers in/out of bed), Neuromuscular Reeducation ( core stab, balance, gait & stair training to be without assist device and normal gait.
--- NOTE | 2023-05-19 16:24 | PT.OTN ---
Current Diagnoses Unilateral primary osteoarthritis, right hip (05/19/23) Physical Therapy Treatment Note PT-OP-A Visit Information Start: 04/08/23 19:15 Freq: Status: Active Protocol: Document 05/19/23 14:23 AB (Rec: 05/19/23 16:23 AB [id number]) Out-Patient Physical Therapy Visit Information Visit Information Visit Type Treatment Note Visit Note Access Code: [email or web address] Visit Start Time 14:33 Visit Stop Time 15:15 Visit Number [id number] Number of HAT SIZER Visits 1 Evaluation Information Evaluation Date 04/14/23 Precautions Precautions R anterior CHRISTINA precautions, WBing as tolerated. Pt has hiatal hernia, L distal end of thumb sensitivity due to nail removal from tip 3 wks ago. PT-OP-B Current Condition Start: 04/08/23 19:15 Freq: Status: Active Protocol: Document 04/14/23 09:50 LRN (Rec: 04/14/23 12:34 LRN [id number]) Current Condition History of Current Condition Onset Date 04/06/23 Current Complaints R hip pain, difficulty walking , R lower leg pain, wakes him at night. History of Current Condition R Anterior CHRISTINA 04/06/23 with one hospital stay due to Low BP. Blood pressure is now normal (119/85). Normally sleeps on side. Pt precautions: no feet in circles and hip extension. Spouse able to identify proper hip precautions. States he was told by surgeon he was not limited with rotation, and can sleep however he wants. Prior Treatments and Tests Post-op instructions of anterior CHRISTINA precautions and exercises given in hospital. Treatment Goals Patient/Caregiver Goals Pt goals: 1) Walk enough to return to work (minimum 5'), 2) sit<>stand from high and low surface without difficulty , 3) be able to get in/out of bed independently lifting R LE . 4) Independent with dressing with pigskin trimmer if needed and putting socks/shoes on. 5) Ambulate stairs with a step over step gait. 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 Therapy/Recovery Hx of hiatal hernia. PT-OP-C Subjective Start: 04/08/23 19:15 Freq: Status: Active Protocol: Document 05/19/23 14:23 AB (Rec: 05/19/23 16:23 AB [id number]) OP-PT Subjective Patient Comments Patient Comments Patient reports he saw the MD and he has been basically released, will see MD in 2-3 months, reports MD has released from the precautions and commented there is no way the joint will dislocate. Patient reports the exercises are going well. Patient reports no difficulty getting out of bed. PT-OP-E Functional Tests Start: 04/19/23 16:57 Freq: Status: Active Protocol: Document 05/10/23 14:36 LRN (Rec: 05/10/23 15:42 LRN [id number]) Functional Tests 6 Minute Walk Test Distance 1316 ft Device Used None Comments Mild shoulder sway. 30 Second Sit to Stand Test Score 19 times Comments No use of UE's, in webbed chair. Five Times Sit to Stand Test Score 8 secs Comments No use of UE's, in webbed chair. PT-OP-G Mobility & Gait Start: 04/08/23 19:15 Freq: Status: Active Protocol: Document 04/14/23 09:50 LRN (Rec: 04/14/23 12:34 LRN [id number]) OP Mobility Evaluation Bed Mobility Supine to and from Sit Pt self assist of R LE to lift leg on plinth. Transfers Sit to Stand Independent. OP Gait Assessment Gait Gait Assistance Required: Independent Distance (Feet) 200 Able to Maintain Weight Bearing Status Yes During Gait Assistive Devices Assistive Device 4 Wheeled Walker Orthotic/Prosthetic Devices or Brace: No Gait Deviations General Gait Pattern Antalgic,Flexed Trunk,Wide Based Gait Comments Gait Comments Walker too short: walks with flexion at hips ~45 deg's, R hip going into ~10 deg's hip ext and 20 deg's ER. Stair Climbing Evaluation Comments Stair Climbing Comments Pt states 4 steps into house with step to step gait. PT-OP-H Neuro Start: 04/08/23 19:15 Freq: Status: Active Protocol: Document 04/14/23 09:50 LRN (Rec: 04/14/23 12:34 LRN [id number]) Sensation Evaluation Gross Sensation Gross Sensation WNL PT-OP-J Posture/Palpation/Skin Start: 04/08/23 19:15 Freq: Status: Active Protocol: Document 04/14/23 09:50 LRN (Rec: 04/14/23 12:34 LRN [id number]) Posture Evaluation Comments Posture Comments R hip ~15 deg's flexion and feet in 25 deg's ER. PT-OP-K Range of Motion Start: 04/08/23 19:15 Freq: Status: Active Protocol: Document 05/19/23 14:23 AB (Rec: 05/19/23 16:23 AB [id number]) Hip Goniometric Range of Motion Hip AROM right Flexion w/Knee Flexed 121 Internal Rotation 39 AROM left Flexion w/Knee Flexed 111 Internal Rotation 23 PT-OP-M Strength Start: 04/08/23 19:15 Freq: Status: Active Protocol: Document 05/19/23 14:23 AB (Rec: 05/19/23 16:23 AB [id number]) Hip Strength Hip Manual Muscle Testing Left Abduction 4 Good Comments with hip flexor compensation noted PT-OP-Q Treatments Start: 04/08/23 19:15 Freq: Status: Active Protocol: Document 05/19/23 14:23 AB (Rec: 05/19/23 16:23 AB [id number]) Therapeutic Exercises Supine Exercises hooklying piriformis stretch Side bilateral Reps/Minutes 60 seconds X2 Sitting Exercises piriformis Side bilateral Reps/Minutes 60 sceonds Comments verbal cues Hip Abd Sitting Exercise Name Isometric and AROM Side bilateral Equipment Used TBand light green band and teal band Reps/Minutes one minute hold X2 15X 2 Sit<>Stand Resistance level 3 green band Reps/Minutes 10X2 Comments Verbal cues to sit slowly and keep tension on band Other Exercises ambulation with 4 lb held overhead Reps/Minutes one minute Comments verbal and visual cues Gait Training Gait Activity ascending and descending 6 inch stairs Description without UE use Distance/Duration 4X5 Comments Verbal and visual cues to decrease a slightly quad dominant pattern descending. PT-OP-T Assessment and Plan Start: 04/08/23 19:15 Freq: Status: Active Protocol: Document 05/19/23 14:23 AB (Rec: 05/19/23 16:23 AB [id number]) Physical Therapy Assessment Goals Four Impairment Decreased endurance. 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 04/19/23: 5' Walk Test - 924 ft. 05/10/23: 6' Walk Test - 1316 ft LTG Duration 6 wks-05/26/23 (05/10/23: MET GOAL) Three Impairment Decreased R hip Strength Short Term Goal (STG) be able to get in/out of bed by independently lifting R LE. STG Duration 2 wks-04/29/23 (04/19/23: MET GOAL) Vegetable Worker Goal (LTG) Amb stairs with step over step gait Patient ascends and descends 6 inch stairs with a reciprocal pattern without use of rails 4X5 LTG Duration 6 wks-05/26/23 MET One Impairment Pt lacks appropriate self care HEP. Short Term Goal (STG) sit<>stand from high and low surface without difficulty, 04/19/23: From webbed chair: 5xSTS - 15 secs, 30 sec STS - 10x 04/27/23: Glute Bridge, SAQ. 05/06/23: 5xSTS - 11 secs, 30 sec STS -12x 05/10/23: 5xSTS - 8 secs, 30 sec STS - 19x STG Duration 4 wks-05/13/23 (05/10/23: MET GOAL) Half-Way Goal (LTG) Pt will be independent in an effective self care HEP for core/hip strengthening and mobility ex's. 04/19/23: Pt told to incr strengthening ex to 3 sets of 10 or 15 reps. 05/06/23: I/S in HEP: Sitting LAQ, Supine: Bridge to painfree range & Andrea BKFO w/ TB and ball. LTG Duration 8 wks-06/10/23 progressed Two Impairment Decreased R hip ROM Impairment UE Quickdash score 20 (20-39% impaired, score 20-39) 09/16/22: UE Quickdash score 47 (40-59% impaired, score 40- 59) Short Term Goal (STG) Improve R hip flex ROM in sitting 90 deg's and IR 45 deg 's. 05/10/23: R hip flex AROM is sitting 120 deg's, IR 30 deg's (L hip 28 deg's). STG Duration 4 wks-05/13/23 progressed (need improved hip IR) Half-Way Goal (LTG) Independent with dressing with pigskin trimmer if needed and putting socks/shoes on. 03/19/24: Yesterday able to put socks/shoes on like normal , no pigskin trimmer needed. LTG Duration 6 wks-05/26/23 (05/10/23: MET GOAL) Assessment Summary Assessment Visible decrease in ipsilateral trunk side bend right LE during single leg stance compared to trial start of session. Jared reports no increased pain end of session . Physical Therapy Plan Frequency and Duration Frequency of Treatment 2x/Week Duration of treatment (weeks) 8 Plan of Care Start Date 04/14/23 Plan of Care End Date 06/10/23 Next Visit Focus/Plan Next Note Type Treatment Note Next Visit Plan Probable DC in 3 wks. Check sitting L hip ROM/strength. Start Gait trng (6 wks hip ext ) & balance trng. POC: Therapeutic Exercises, Therapeutic Activities Neuromuscular Reeducation ( core stab, balance, gait & stair training to be without assist device and normal gait.
--- NOTE | 2023-05-27 16:21 | PT.OTN ---
Current Diagnoses Unilateral primary osteoarthritis, right hip (05/27/23) Physical Therapy Treatment Note PT-OP-A Visit Information Start: 04/08/23 19:15 Freq: Status: Active Protocol: Document 05/27/23 13:48 AB (Rec: 05/27/23 16:20 AB [id number]) Out-Patient Physical Therapy Visit Information Visit Information Visit Note Access Code: [email or web address] Visit Start Time 13:52 Visit Stop Time 14:30 Visit Number Number of COMMUNITY HEALTH COORDINATOR Visits 2 Evaluation Information Evaluation Date 04/14/23 Precautions Precautions R anterior CHRISTINA precautions, WBing as tolerated. Pt has hiatal hernia, L distal end of thumb sensitivity due to nail removal from tip 3 wks ago. PT-OP-B Current Condition Start: 04/08/23 19:15 Freq: Status: Active Protocol: Document 04/14/23 09:50 LRN (Rec: 04/14/23 12:34 LRN [id number]) Current Condition History of Current Condition Onset Date 04/06/23 Current Complaints R hip pain, difficulty walking , R lower leg pain, wakes him at night. History of Current Condition R Anterior CHRISTINA 04/06/23 with one hospital stay due to Low BP. Blood pressure is now normal (119/85). Normally sleeps on side. Pt precautions: no feet in circles and hip extension. Spouse able to identify proper hip precautions. States he was told by surgeon he was not limited with rotation, and can sleep however he wants. Prior Treatments and Tests Post-op instructions of anterior CHRISTINA precautions and exercises given in hospital. Treatment Goals Patient/Caregiver Goals Pt goals: 1) Walk enough to return to work (minimum 5'), 2) sit<>stand from high and low surface without difficulty , 3) be able to get in/out of bed independently lifting R LE . 4) Independent with dressing with ur coordinator if needed and putting socks/shoes on. 5) Ambulate stairs with a step over step gait. 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 Therapy/Recovery Hx of hiatal hernia. PT-OP-C Subjective Start: 04/08/23 19:15 Freq: Status: Active Protocol: Document 05/27/23 13:48 AB (Rec: 05/27/23 16:20 AB [id number]) OP-PT Subjective Patient Comments Patient Comments Patient reports having muscle pain in the quad attributes to side stepping with band. Patient reports be is better. Patient Questionnaires Lower Extremity Functional Scale LEFS Score 53 LEFS Impairment 20 to 39% Impaired (Score 48- 62) PT-OP-E Functional Tests Start: 04/19/23 16:57 Freq: Status: Active Protocol: Document 05/10/23 14:36 LRN (Rec: 05/10/23 15:42 LRN [id number]) Functional Tests 6 Minute Walk Test Distance 1316 ft Device Used None Comments Mild shoulder sway. 30 Second Sit to Stand Test Score 19 times Comments No use of UE's, in webbed chair. Five Times Sit to Stand Test Score 8 secs Comments No use of UE's, in webbed chair. PT-OP-G Mobility & Gait Start: 04/08/23 19:15 Freq: Status: Active Protocol: Document 04/14/23 09:50 LRN (Rec: 04/14/23 12:34 LRN [id number]) OP Mobility Evaluation Bed Mobility Supine to and from Sit Pt self assist of R LE to lift leg on plinth. Transfers Sit to Stand Independent. OP Gait Assessment Gait Gait Assistance Required: Independent Distance (Feet) 200 Able to Maintain Weight Bearing Status Yes During Gait Assistive Devices Assistive Device 4 Wheeled Walker Orthotic/Prosthetic Devices or Brace: No Gait Deviations General Gait Pattern Antalgic,Flexed Trunk,Wide Based Gait Comments Gait Comments Walker too short: walks with flexion at hips ~45 deg's, R hip going into ~10 deg's hip ext and 20 deg's ER. Stair Climbing Evaluation Comments Stair Climbing Comments Pt states 4 steps into house with step to step gait. PT-OP-H Neuro Start: 04/08/23 19:15 Freq: Status: Active Protocol: Document 04/14/23 09:50 LRN (Rec: 04/14/23 12:34 LRN [id number]) Sensation Evaluation Gross Sensation Gross Sensation WNL PT-OP-J Posture/Palpation/Skin Start: 04/08/23 19:15 Freq: Status: Active Protocol: Document 04/14/23 09:50 LRN (Rec: 04/14/23 12:34 LRN [id number]) Posture Evaluation Comments Posture Comments R hip ~15 deg's flexion and feet in 25 deg's ER. PT-OP-K Range of Motion Start: 04/08/23 19:15 Freq: Status: Active Protocol: Document 05/19/23 14:23 AB (Rec: 05/19/23 16:23 AB [id number]) Hip Goniometric Range of Motion Hip AROM right Flexion w/Knee Flexed 121 Internal Rotation 39 AROM left Flexion w/Knee Flexed 111 Internal Rotation 23 PT-OP-M Strength Start: 04/08/23 19:15 Freq: Status: Active Protocol: Document 05/19/23 14:23 AB (Rec: 05/19/23 16:23 AB [id number]) Hip Strength Hip Manual Muscle Testing Left Abduction 4 Good Comments with hip flexor compensation noted PT-OP-Q Treatments Start: 04/08/23 19:15 Freq: Status: Active Protocol: Document 05/27/23 13:48 AB (Rec: 05/27/23 16:20 AB [id number]) Therapeutic Exercises Sitting Exercises piriformis Side bilateral Reps/Minutes 60 sceonds Comments verbal cues Hip Abd Sitting Exercise Name Isometric and AROM Side bilateral Equipment Used level 3 light green band Reps/Minutes one minute hold X2 15X 2 Sit<>Stand Resistance level 3 green band holding 3 lb weights each UE Reps/Minutes 15X 3 Comments Verbal cues to sit slowly and keep tension on band Standing Exercises side stepping with band Side bilateral Resistance level 3 light green Reps/Minutes 12 feet left and right X 3 Other Exercises ambulation with 4 lb held overhead Reps/Minutes one minute Comments verbal and visual cues PT-OP-T Assessment and Plan Start: 04/08/23 19:15 Freq: Status: Active Protocol: Document 05/27/23 13:48 AB (Rec: 05/27/23 16:20 AB [id number]) Physical Therapy Assessment Goals Four Impairment Decreased endurance. Stained Glass Artist Goal (LTG) Walk with cane or without assistive device, enough to return to work (minimal 5'). 04/19/23: 5' Walk Test - 924 ft. 05/10/23: 6' Walk Test - 1316 ft LTG Duration 6 wks-05/26/23 (05/10/23: MET GOAL) Three Impairment Decreased R hip Strength Short Term Goal (STG) be able to get in/out of bed by independently lifting R LE. STG Duration 2 wks-04/29/23 (04/19/23: MET GOAL) Prison Goal (LTG) Amb stairs with step over step gait Patient ascends and descends 6 inch stairs with a reciprocal pattern without use of rails 4X5 LTG Duration 6 wks-05/26/23 MET One Impairment Pt lacks appropriate self care HEP. Short Term Goal (STG) sit<>stand from high and low surface without difficulty, 04/19/23: From webbed chair: 5xSTS - 15 secs, 30 sec STS - 10x 04/27/23: Glute Bridge, SAQ. 05/06/23: 5xSTS - 11 secs, 30 sec STS -12x 05/10/23: 5xSTS - 8 secs, 30 sec STS - 19x STG Duration 4 wks-05/13/23 (05/10/23: MET GOAL) Prison Goal (LTG) Pt will be independent in an effective self care HEP for core/hip strengthening and mobility ex's. 04/19/23: Pt told to incr strengthening ex to 3 sets of 10 or 15 reps. 05/06/23: I/S in HEP: Sitting LAQ, Supine: Bridge to painfree range & Andrea BKFO w/ TB and ball. LTG Duration 8 wks-06/10/23 progressed Two Impairment Decreased R hip ROM Impairment UE Quickdash score 20 (20-39% impaired, score 20-39) 09/16/22: UE Quickdash score 47 (40-59% impaired, score 40- 59) Short Term Goal (STG) Improve R hip flex ROM in sitting 90 deg's and IR 45 deg 's. 05/10/23: R hip flex AROM is sitting 120 deg's, IR 30 deg's (L hip 28 deg's). STG Duration 4 wks-05/13/23 progressed (need improved hip IR) Prison Goal (LTG) Independent with dressing with ur coordinator if needed and putting socks/shoes on. 05/10/23: Yesterday able to put socks/shoes on like normal , no ur coordinator needed. 05/27/2023 Patient reports that he did the exercises twice a week, but was moving boxes, up and down stairs so did not do exercises daily. LTG Duration 6 wks-05/26/23 (05/10/23: MET GOAL) Assessment Summary Assessment Good return demonstration for all exercises, reports having no increased pain end of session. Physical Therapy Plan Frequency and Duration Frequency of Treatment 2x/Week Duration of treatment (weeks) 8 Plan of Care Start Date 04/14/23 Plan of Care End Date 06/10/23 Next Visit Focus/Plan Next Note Type Treatment Note Next Visit Plan Probable DC next session Check sitting L hip ROM/ strength. Start Gait trng (6 wks hip ext ) & balance trng. POC: Therapeutic Exercises, Therapeutic Activities Neuromuscular Reeducation ( core stab, balance, gait & stair training to be without assist device and normal gait.
--- NOTE | 2023-06-07 15:00 | PT.OTN ---
Addendum entered and electronically signed by Sarah Chente Quene, PT 06/07/23 15:01: LEFS score post therapy - 63/80 (1-19% impaired) Original Note: Current Diagnoses Unilateral primary osteoarthritis, right hip (06/07/23) Physical Therapy Treatment Note PT-OP-A Visit Information Start: 04/08/23 19:15 Freq: Status: Active Protocol: Document 06/07/23 13:48 LRN (Rec: 06/07/23 14:57 LRN [id number]) Out-Patient Physical Therapy Visit Information Visit Information Visit Type Treatment Note Visit Note Access Code: [email or web address] Visit Start Time 13:48 Visit Stop Time 14:34 Visit Number Number of CAREER TECHNICAL SUPERVISOR Visits 2 Evaluation Information Evaluation Date 04/14/23 Precautions Precautions R anterior CHRISTINA precautions, WBing as tolerated. Pt has hiatal hernia, L distal end of thumb sensitivity due to nail removal from tip 3 wks ago. PT-OP-B Current Condition Start: 04/08/23 19:15 Freq: Status: Active Protocol: Document 04/14/23 09:50 LRN (Rec: 04/14/23 12:34 LRN [id number]) Current Condition History of Current Condition Onset Date 04/06/23 Current Complaints R hip pain, difficulty walking , R lower leg pain, wakes him at night. History of Current Condition R Anterior CHRISTINA 04/06/23 with one hospital stay due to Low BP. Blood pressure is now normal (119/85). Normally sleeps on side. Pt precautions: no feet in circles and hip extension. Spouse able to identify proper hip precautions. States he was told by surgeon he was not limited with rotation, and can sleep however he wants. Prior Treatments and Tests Post-op instructions of anterior CHRISTINA precautions and exercises given in hospital. Treatment Goals Patient/Caregiver Goals Pt goals: 1) Walk enough to return to work (minimum 5'), 2) sit<>stand from high and low surface without difficulty , 3) be able to get in/out of bed independently lifting R LE . 4) Independent with dressing with motorcycle subassembly repairer if needed and putting socks/shoes on. 5) Ambulate stairs with a step over step gait. 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 Therapy/Recovery Hx of hiatal hernia. PT-OP-C Subjective Start: 04/08/23 19:15 Freq: Status: Active Protocol: Document 06/07/23 13:48 LRN (Rec: 06/07/23 14:57 LRN [id number]) OP-PT Subjective Patient Comments Patient Comments Feels like he is walking normal. Sometimes forgets he had surgery on his R hip. Has questions regarding his thumb . PT-OP-E Functional Tests Start: 04/19/23 16:57 Freq: Status: Active Protocol: Document 05/10/23 14:36 LRN (Rec: 05/10/23 15:42 LRN [id number]) Functional Tests 6 Minute Walk Test Distance 1316 ft Device Used None Comments Mild shoulder sway. 30 Second Sit to Stand Test Score 19 times Comments No use of UE's, in webbed chair. Five Times Sit to Stand Test Score 8 secs Comments No use of UE's, in webbed chair. PT-OP-G Mobility & Gait Start: 04/08/23 19:15 Freq: Status: Active Protocol: Document 04/14/23 09:50 LRN (Rec: 04/14/23 12:34 LRN [id number]) OP Mobility Evaluation Bed Mobility Supine to and from Sit Pt self assist of R LE to lift leg on plinth. Transfers Sit to Stand Independent. OP Gait Assessment Gait Gait Assistance Required: Independent Distance (Feet) 200 Able to Maintain Weight Bearing Status Yes During Gait Assistive Devices Assistive Device 4 Wheeled Walker Orthotic/Prosthetic Devices or Brace: No Gait Deviations General Gait Pattern Antalgic,Flexed Trunk,Wide Based Gait Comments Gait Comments Walker too short: walks with flexion at hips ~45 deg's, R hip going into ~10 deg's hip ext and 20 deg's ER. Stair Climbing Evaluation Comments Stair Climbing Comments Pt states 4 steps into house with step to step gait. PT-OP-H Neuro Start: 04/08/23 19:15 Freq: Status: Active Protocol: Document 04/14/23 09:50 LRN (Rec: 04/14/23 12:34 LRN [id number]) Sensation Evaluation Gross Sensation Gross Sensation WNL PT-OP-J Posture/Palpation/Skin Start: 04/08/23 19:15 Freq: Status: Active Protocol: Document 04/14/23 09:50 LRN (Rec: 04/14/23 12:34 LRN [id number]) Posture Evaluation Comments Posture Comments R hip ~15 deg's flexion and feet in 25 deg's ER. PT-OP-K Range of Motion Start: 04/08/23 19:15 Freq: Status: Active Protocol: Document 06/07/23 13:48 LRN (Rec: 06/07/23 14:59 LRN [id number]) Hip Goniometric Range of Motion Hip AROM right Testing Position Sitting Flexion w/Knee Flexed 130 Internal Rotation 35 AROM left Testing Position Sitting Internal Rotation 30 PT-OP-M Strength Start: 04/08/23 19:15 Freq: Status: Active Protocol: Document 06/07/23 13:48 LRN (Rec: 06/07/23 14:57 LRN [id number]) Hip Strength Hip Manual Muscle Testing Left Flexion (L2) 5 Normal Extension (S1) 5 Normal Abduction 5 Normal Adduction 5 Normal Right Flexion (L2) 5 Normal Abduction 5 Normal Adduction 5 Normal PT-OP-Q Treatments Start: 04/08/23 19:15 Freq: Status: Active Protocol: Document 06/07/23 13:48 LRN (Rec: 06/07/23 14:57 LRN [id number]) Therapeutic Exercises Supine Exercises Hip AD Side bilateral Reps/Minutes 1-2x/each Comments MMT taken SLR Supine Exercise Name Hip Flexion Side bilateral Reps/Minutes 1-2x each Comments MMT taken Sidelying Exercises Hip AB/AD Side bilateral Reps/Minutes 1x each Comments MMT taken Sitting Exercises Hip FLexion Sitting Exercise Name Hip flexion active & passive Side right Comments ROM taken Hip IR/ER Sitting Exercise Name Hip IR/ER Side bilateral Reps/Minutes 4x each Comments MMT & AROM taken piriformis Side bilateral Reps/Minutes 60 sceonds Comments verbal cues Hip Abd Sitting Exercise Name Isometric and AROM Side bilateral Equipment Used level 3 light green band Reps/Minutes one minute hold X2 15X 2 Sit<>Stand Resistance level 3 green band holding 3 lb weights each UE Reps/Minutes 15X 3 Comments Verbal cues to sit slowly and keep tension on band Standing Exercises Step ups Side bilateral Equipment Used 6 steps/railing Reps/Minutes 15x 2 each (first leading w/ RLE, then LLE. Gait Training Gait Activity ascending and descending 6 inch stairs Description Step over step gait Device Used Use of railing Distance/Duration 4 steps ascend/descend x 3 Treatment Focus no body sway. Comments Very minimal R hip AD weakness . Gait Description Gait training for Andrea WGt shift and core stability/ steady. Device Used None Level of Assistance Indep Surface Level Distance/Duration 25' x 6 Treatment Focus Gait w/o upper trunk sway ( primarily limiting L shldr drop on LLE WBing) Self-Care/Home Management Treatment Education Patient Education Pain Management Other Education Discussed R thumb discomfort at end of L distal thumb and at scar on romero side of R thumb. Recommended use hot/ cols and scar massage self treatment. PT-OP-T Assessment and Plan Start: 04/08/23 19:15 Freq: Status: Active Protocol: Document 06/07/23 13:48 LRN (Rec: 06/07/23 14:57 LRN [id number]) Physical Therapy Assessment Goals Four Impairment Decreased endurance. Mcc Goal (LTG) Walk with cane or without assistive device, enough to return to work (minimal 5'). 04/19/23: 5' Walk Test - 924 ft. 05/10/23: 6' Walk Test - 1316 ft LTG Duration 6 wks-05/26/23 (05/10/23: MET GOAL) Three Impairment Decreased R hip Strength Short Term Goal (STG) be able to get in/out of bed by independently lifting R LE. 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 Short Term Goal (STG) sit<>stand from high and low surface without difficulty, 04/19/23: From webbed chair: 5xSTS - 15 secs, 30 sec STS - 10x 04/27/23: Glute Bridge, SAQ. 05/06/23: 5xSTS - 11 secs, 30 sec STS -12x 05/10/23: 5xSTS - 8 secs, 30 sec STS - 19x STG Duration 4 wks-05/13/23 (05/10/23: MET GOAL) Pocket And Pulley Machine Operator Goal (LTG) Pt will be independent in an effective self care HEP for core/hip strengthening and mobility ex's. 04/19/23: Pt told to incr strengthening ex to 3 sets of 10 or 15 reps. 05/06/23: I/S in HEP: Sitting LAQ, Supine: Bridge to painfree range & Andrea BKFO w/ TB and ball. LTG Duration 8 wks-06/10/23 (06/07/23: MET GOAL) Two Impairment Decreased R hip ROM Impairment UE Quickdash score 20 (20-39% impaired, score 20-39) 09/16/22: UE Quickdash score 47 (40-59% impaired, score 40- 59) Short Term Goal (STG) Improve R hip flex ROM in sitting 90 deg's and IR 45 deg 's. 05/10/23: R hip flex AROM is sitting 120 deg's, IR 30 deg's (L hip 28 deg's). 06/07/23: R hip flex AROM is sitting 120 deg's, IR 30 deg's (L hip 28 deg's). R hip flex AROM is sitting 135 deg's ( sup is 109 deg's) IR: R 35 deg's, L 30 deg's STG Duration 4 wks-05/13/23 (06/07/23: MET GOAL) Mcc Goal (LTG) Independent with dressing with motorcycle subassembly repairer if needed and putting socks/shoes on. 05/10/23: Yesterday able to put socks/shoes on like normal , no motorcycle subassembly repairer needed. 05/27/2023 Patient reports that he did the exercises twice a week, but was moving boxes, up and down stairs so did not do exercises daily. LTG Duration 6 wks-05/26/23 (05/10/23: MET GOAL) Assessment Summary Assessment Pt is 9 wks po R anterior CHRISTINA (04/06/23). He attends today w/o use of assistive device, gait mechanics that he feels is normal and normal R hip strength (extension not tested ). Pt does tend to dip with L shoulder with gait after a few steps that appears habitual in nature; as he had extreme difficulty trying to coordinate wgt shifting for lessening upper body sway, and could not do it as guided and cued. We have not worked on balance exercises yet. 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 Physical Therapy Plan Discharge Physical Therapy Discharge Reasons Goals Met Discharge Comments Pt has done very well with therapy and ready for discharge from PT. Thank you for your referral.
== END 2023-06-13 11:00 | disposition home or self-care (01) ==
LOC: PHYS 13:45
PROVIDERS: Family Provider Family Medicine; PCP Family Medicine; Referring Provider Orthopaedic Surgery Adult Reconstructive Orthopaedic Surgery; Visit Provider Orthopaedic Surgery Adult Reconstructive Orthopaedic Surgery
DX: M16.11 Unilateral primary osteoarthritis, right hip (principal)
CPT/HCPCS: 97110; 97116; 97162

== ENCOUNTER 2023-09-27 13:58 | Day surgery (SDC) | payer OTHER, SELFPAY ==
[2023-09-08 16:11] VITALS: BMI 28.6
[2023-09-27 14:26] VITALS: BP 143/99; PULSE 73; RESP 16; TEMP 36.1; O2SAT 98
[2023-09-27] MEDS: LACTATED RINGERS 1,000 ML 42 ML IV (14:41)
--- NOTE | 2023-09-27 14:54 | PM.HP.1 ---
History of Present Illness History of Present Illness Date Patient Seen: 09/27/23 Time Patient Seen: 14:54 Chief complaint: Screening Colonoscopy Narrative: 68-year-old man here for screening colonoscopy. Last colonoscopy approximately 8 years ago. History of colonic polyps. No family history of colon cancer. No abdominal concerns today. [facility] Medical History History of prostate cancer (~2017) Vision disorder Hearing loss Surgical History Hx of bilateral hip replacements (~2023) History of penile implant Anesthesia History of hernia surgery History of prostatectomy (~2017) Family History Mother Congestive heart failure Grandfather Respiratory disease Grandmother Diabetes mellitus Social History marital status: household members: spouse lives independently: Yes occupational status: employed Smoking Status: Never smoker alcohol intake: never substance use type: does not use Meds Home Medications and Allergies Home Medications Medication Instructions Recorded Confirmed Type levothyroxine 50 mcg tablet 50 mcg PO DAILY #90 tabs 03/28/23 09/27/23 Rx pantoprazole 40 mg tablet,delayed 20 mg PO DAILY 04/06/23 09/27/23 History release Allergies Allergy/AdvReac Type Severity Reaction Status Date / Time No Known Drug Allergies Allergy Verified 09/27/23 14:19 Exam Vital Signs (past 8 hours): - 09/27/23 14:26 Temperature 97.0 F L Pulse Rate 73 Respiratory Rate 16 Blood Pressure 143/99 H Pulse Oximetry 98 Oxygen Delivery Method Room Air Oxygen Delivery Method Room Air Narrative Exam Narrative: General adult man alert oriented no acute distress Chest nonlabored respiration Extremities warm well perfused Assessment & Plan Assessment & Plan narrative: The patient requires colorectal screening and colonoscopy is recommended. Technical details were discussed. Risks, benefits, alternatives explained. Risks including but not limited to myocardial infarction, aspiration, bleeding, pain, missed lesion, incomplete examination, need for further radiographic studies, intestinal injury, and need for major abdominal surgery were discussed. All questions were answered to their satisfaction, and they are in agreement with this plan. Time-Based Coding :: [TOTAL MINUTES] spent with patient and on the chart (including review of chart, obtaining history, exam, reviewing outside data, placing orders, documenting exam and treatment plan, and counseling patient) on [DATE].
[2023-09-27 15:18] VITALS: BP 112/81; PULSE 88; RESP 12; TEMP 37.2; O2SAT 96
[2023-09-27 15:21] VITALS: BP 107/77; PULSE 83; RESP 12; TEMP 37.2; O2SAT 95
--- NOTE | 2023-09-27 15:21 | P.OP.COLON_ITS ---
Operative Date/Time/Diagnoses Date of procedure: 09/27/23 Time of procedure: 15:21 Pre-op diagnosis: Colorectal screening Procedure & Clinicians Study performed: Screening colonoscopy Same procedure as scheduled: Yes Indications: Colorectal screening Surgeon: Bharathi Carlson Procedure Notes Procedure in detail: The history and physical was performed/updated and the patient is ASA class is 2. The procedure was discussed in detail with the patient. Potential risks co mplications including infection, bleeding, missed diagnosis, perforation, need for surgery, and were explained. Their questions were answered and informed consent was obtained. Patient was brought to the procedure room and placed standard monitoring equipment. The patient's vital signs were monitored continuously throughout the entire procedure. Prior to starting time-out was performed. The patient was placed in the left lateral recumbent position. Procedural sedation was administered by anesthesia. Examination began with a thorough inspection of the perianal area there was no evidence of fissures, fistulae, external hemorrhoids or cutaneous malignancy. The colonoscopy scope was then placed into the anal canal and was advanced to the cecum, which was identified by the ileocecal valve, the appendiceal orifice and the confluence of the taenia. The scope was then slowly withdrawn examining colon thoroughly in all directions, irrigating it of any residual stool. The scope was retroflexed within the rectum The patient tolerated the procedure well. They will be discharged once criteria are met. The prep was of good/excellent quality. The withdrawl time was 6 minutes. FINDINGS * Unremarkable colonoscopy. Normal healthy colonic mucosa without mass or polyps. Specimen(s): none sent Impression: Normal colonoscopy Post-procedure Plan for aftercare: No need for further colonoscopy unless symptomatic Disposition: same day surgery
[2023-09-27 15:26] VITALS: BP 114/84; PULSE 76; RESP 12; TEMP 37.2; O2SAT 95
[2023-09-27 15:32] VITALS: BP 106/76; PULSE 98; RESP 12; TEMP 37.1; O2SAT 95
== END 2023-09-27 15:45 | disposition home or self-care (01) ==
PROVIDERS: Family Provider Family Medicine; PCP Family Medicine; Referring Provider Surgery; Visit Provider Surgery
PROC: 0DJD8ZZ Inspection of Lower Intestinal Tract, Via Natural or Artificial Opening Endoscopic (ICD-10-PCS; CPT 45378; principal; 2023-09-27 14:45)
DX: Z12.11 Encounter for screening for malignant neoplasm of colon (principal)
CPT/HCPCS: 45378; J2704

== ENCOUNTER → 2023-10-25 15:21 | Outpatient (CLI) | payer OTHER, SELFPAY ==
[2023-09-08 16:11] VITALS: BMI 28.6
[2023-10-25 16:14] LABS: BUN Creatinine Ratio 16.1 (6-22); Blood Urea Nitrogen 20 mg/dL (9-20); Calcium 8.8 mg/dL (8.4-10.2); Carbon Dioxide 23 mmol/L (22-32); Chloride 110 mmol/L (98-107); Estimated Glomerular Filt Rate > 60 mL/min (>60); Glucose 124 mg/dL (80-110); HEMOLYSIS < 15 (0-50); Sodium 140 mmol/L (137-145)
[2023-10-25 16:43] LABS: Prostate Specific Antigen < 0.064 ng/mL (0.10-4.00)
== END ==
PROVIDERS: Family Provider Family Medicine; PCP Family Medicine; Referring Provider Urology; Visit Provider Urology
DX: R31.0 Gross hematuria (principal); C61 Malignant neoplasm of prostate
CPT/HCPCS: 36415; 80048; 84153

== ENCOUNTER → 2023-11-01 06:42 | Outpatient (CLI) | payer OTHER, SELFPAY ==
[2023-09-08 16:11] VITALS: BMI 28.6
--- NOTE | 2023-11-01 06:45 | DI.CT.S_ITS ---
PROCEDURE: CT IVP A/P W/WO INDICATIONS: Gross hematuria TECHNIQUE: Optional 5 mm thick noncontrast images acquired from the diaphragm to the symphysis pubis. After the administration of intravenous contrast, 5 mm thick images acquired from the diaphragm to the symphysis pubis after a 10-minute delay. 2 mm thick coronal and sagittal reformats were then performed of the kidneys and ureters. For radiation dose reduction, the following was used: automated exposure control, adjustment of mA and/or kV according to patient size. COMPARISON: None. FINDINGS: Image quality: Diagnostic Lower chest: Basal atelectasis. Mild wall thickening at the gastroesophageal junction. Liver: Unremarkable Gallbladder and biliary system: Gas containing gallstones. No pathologic biliary dilation Pancreas: Mild parenchymal atrophy. No ductal dilation Spleen: Nonenlarged Adrenals: No discrete nodules Kidneys: Large right renal simple cyst measures up to 16 cm and partially herniates into the renal pelvis. No right-sided stones. Exophytic left lower pole renal mass measures 7.3 x 4.6 x 7.8 cm. There are small internal calcifications. This extends into the renal collecting system. The main left renal vein appears patent. The left lower pole venous tributaries may have some early tumor thrombus. The medial border of the mass contacts the psoas. This is also in close proximity to the posterior pararenal fascia. No ureter filling defects otherwise. Vessels and lymph nodes: No pathologic lymph nodes by size criteria. No abdominal aortic aneurysm. The main portal vein appears patent Bowel and peritoneum: Njnk-vs-iradwpuh gastric distention. No acute small bowel obstruction. No pathologic ascites. Body wall: Penile implant. Small fat containing umbilical hernia Pelvis: Bladder appears unremarkable. Prostatectomy changes Bones: Right hip arthroplasty. Degenerative changes. Age-indeterminate height loss of the L1 vertebral body. IMPRESSION: Left lower pole renal mass extending into the collecting system. There may also be involvement of some venous tributaries in the left lower pole, while the main renal vein appears patent. This contacts the psoas muscle and is in close proximity to the posterior pararenal fascia This was marked for follow-up and communication in PACS. Other findings above. The lower tracts could be better evaluated cystoscopy. Dictated by: Grayson Infante M.D. on 11/01/2023 at 16:41 Approved by: Grayson Infante M.D. on 11/01/2023 at 16:49
== END ==
PROVIDERS: Family Provider Family Medicine; PCP Family Medicine; Referring Provider Urology; Visit Provider Urology
DX: N28.89 Other specified disorders of kidney and ureter (principal); N28.1 Cyst of kidney, acquired; R31.0 Gross hematuria; K42.9 Umbilical hernia without obstruction or gangrene; K80.20 Calculus of gallbladder without cholecystitis without obstruction; Z96.641 Presence of right artificial hip joint
CPT/HCPCS: 74178; Q9967

== ENCOUNTER → 2023-11-03 08:35 | Outpatient (CLI) | payer OTHER, SELFPAY ==
[2023-09-08 16:11] VITALS: BMI 28.6
== END ==
PROVIDERS: Family Provider Family Medicine; PCP Family Medicine; Visit Provider Urology
DX: R39.9 Unspecified symptoms and signs involving the genitourinary system (principal)
CPT/HCPCS: 87086

== ENCOUNTER → 2023-11-03 12:15 | Outpatient (CLI) | payer OTHER, SELFPAY ==
[2023-09-08 16:11] VITALS: BMI 28.6
--- NOTE | 2023-11-03 12:16 | DI.CT.S_ITS ---
PROCEDURE: CT CHEST W CON INDICATIONS: New left renal mass TECHNIQUE: After the administration of intravenous contrast, 5 mm thick sections acquired from the pulmonary apices to the posterior costophrenic angles. 1 mm axial lung, 5 mm thick coronal and sagittal reformats and 7 mm axial MIP were acquired. For radiation dose reduction, the following was used: automated exposure control, adjustment of mA and/or kV according to patient size. COMPARISON: None. FINDINGS: Image quality: Diagnostic. Large right superior pole renal cyst partially imaged measures up to [address] abdomen Mild bilateral symmetric anterior chest wall subareolar soft tissue attenuation measuring up to 2.4 cm has the appearance of gynecomastia. Yccw-xa-fyrwxotp degenerative changes of the thoracic spine without CT evidence of fracture or subluxation. No pneumothorax, no pleural effusion, no pericardial effusion, no focal consolidation. Mild bibasilar subsegmental atelectasis right greater than left commonly expiratory result. A few mildly enlarged mediastinal, bilateral paratracheal, right low paratracheal lymph nodes measuring up to 6 mm short axis commonly reactive/inflammatory. No abnormal pathologically enlarged nodes greater than 1 cm short axis Lower Neck: No enlarged lymph nodes. Thyroid: Heterogeneous attenuation of the thyroid globe with 1 cm calcification on the left commonly related to multinodular goiter. If indicated correlation with serum thyroid studies and/or thyroid ultrasound could be considered. Axillae: No enlarged lymph nodes. Lungs and Pleura: No pneumothorax or pleural effusions. No consolidation or suspicious nodules. Heart: Heart size is normal. Thoracic Vessels: The aorta and pulmonary arteries demonstrate normal size. Esophagus: No wall thickening. No hiatal hernia. IMPRESSION: Large right superior pole renal cyst. Mild bilateral symmetric gynecomastia. Mild bibasilar subsegmental atelectasis. A few mildly enlarged mediastinal lymph nodes. No abnormal pathologically enlarged nodes. Heterogeneous thyroid globe commonly goiter. If indicated correlation with serum thyroid studies and/or thyroid ultrasound could be considered. No CT evidence of abnormal pulmonary nodules or mass. Dictated by: Victor Manuel Durham M.D. on 11/03/2023 at 12:43 Approved by: Victor Manuel Durham M.D. on 11/03/2023 at 13:15
== END ==
LOC: CT 12:16
PROVIDERS: Family Provider Family Medicine; PCP Family Medicine; Referring Provider Urology; Visit Provider Urology
DX: N28.89 Other specified disorders of kidney and ureter (principal); R39.9 Unspecified symptoms and signs involving the genitourinary system; N28.1 Cyst of kidney, acquired; N62 Hypertrophy of breast; J98.11 Atelectasis; R59.0 Localized enlarged lymph nodes
CPT/HCPCS: 71260; 87086; Q9967

== ENCOUNTER 2023-11-05 07:13 | Emergency (ER) | payer OTHER, SELFPAY ==
[2023-09-08 16:11] VITALS: BMI 28.6
[2023-11-05] VITALS (8 sets, daily range): BP systolic 136–180; BP diastolic 83–100; PULSE 72–89; RESP 13–18; TEMP 36.6; O2SAT 95–99; BMI 27.3
--- NOTE | 2023-11-05 07:43 | EKG_ITS ---
[address] [address] Test Date: 2023-11-05 Pat Name: Jared Rolle Department: Room: Gender: Male [employer]: SEGUNDO : [id number] Requested By: Order Number: [id number] Reading MD: Alessio Sanchez Measurements Intervals Arnold Rate: 83 P: 25 SD: 196 QRS: -24 QRSD: 88 T: 1 QT: 382 QTc: 448 Interpretive Statements Normal sinus rhythm Electronically Signed On 11-10-2023 19:46:46 PDT by Alessio Sanchez
[2023-11-05 08:21] LABS: Add Manual Diff / Slide Review NO; Basophils Absolute Auto 0 /uL (0-100); Basophils Percent Auto 0.3 % (0-2); Eosinophils Absolute Auto 0 /uL (0-450); Eosinophils Percent Auto 0.3 % (2-4); Hemoglobin 14.9 g/dL (13.5-17.5); Lymphocytes Absolute Auto 700 /uL (1100-4500); Lymphocytes Percent Auto 7.3 % (25-40); Mean Corpuscular HGB Conc 33.1 % (30-36); Mean Corpuscular Hemoglobin 27.4 PG (26-34); Mean Corpuscular Volume 82.7 fL (80-100); Monocytes Absolute Auto 900 /uL (0-900); Monocytes Percent Auto 8.3 % (3-14); Neutrophils Absolute Auto 8600 /uL (1500-7000); Neutrophils Percent Auto 83.8 % (50-75); Platelet Count 170 X10^3/uL (150-400); Red Blood Cell Count 5.44 X10^6/uL (4.5-5.9); Red Cell Distribution Width 16.2 % (11.6-14.8); White Blood Cell Count 10.3 X10^3/uL (4.5-11.0)
--- NOTE | 2023-11-05 08:26 | ED.ABDPAIN ---
HPI - Abdominal Pain General Chief Complaint: Abdominal Pain Stated Complaint: having severe pain, has kidney cancer Time Seen by Provider: 11/05/23 07:39 Mode of arrival: Ambulatory History of Present Illness HPI narrative: Patient 68-year-old male history of hypothyroidism new diagnosis of left renal presenting today with left-sided pain. He has been followed by Urology he actually was seen by Urology 2 days ago he has had CT chest and abdomen pelvis this week which shows left renal mass. He was started on Flomax took his 1st dose last night and had intense left-sided pain. He was nauseous without vomiting. It was in 1 particular spot. He took Tylenol and codeine last night. He says that the pain is a little bit better now than it was but he has been in pain most of the night. Pain is not moving. He has previously had GI bleeds with ibuprofen so he avoids it. He is being set up with [facility]. According to Dr. Styles's note he called himself and arrangements are being made. Related Data Home Medications Medication Instructions Recorded Confirmed pantoprazole 40 mg tablet,delayed 20 mg PO DAILY 04/06/23 11/03/23 release ascorbate calcium (vitamin C) 500 500 mg PO DAILY 10/20/23 11/03/23 mg tablet [id number]-izy-[id number] 200 mcg-lycop tab PO 10/20/23 11/03/23 175 mcg-lutei 250 mcg-herb 178 tablet (Jose Enrique Multivitamin For Men) Previous Rx's Medication Instructions Recorded levothyroxine 50 mcg tablet 50 mcg PO DAILY #90 tabs 03/28/23 ciprofloxacin HCl 500 mg tablet 500 mg PO BID #7 tabs 11/03/23 tamsulosin 0.4 mg capsule 0.4 mg PO BEDTIME #30 caps 11/04/23 hydrocodone 5 mg-acetaminophen 325 1 tab PO Q6H PRN pain #20 tabs 11/05/23 mg tablet ondansetron 4 mg disintegrating 4 mg PO Q8H PRN nausea and 11/05/23 tablet vomiting #20 tabs Allergies Allergy/AdvReac Type Severity Reaction Status Date / Time No Known Drug Allergies Allergy Verified 11/03/23 08:24 Patient History Medical History Left renal mass Asymptomatic microscopic hematuria Gross hematuria History of prostate cancer (~2018) Vision disorder Hearing loss Surgical History Hx of bilateral hip replacements (~2023) History of penile implant Anesthesia History of hernia surgery History of prostatectomy (~2017) Family History Mother Congestive heart failure Grandfather Respiratory disease Grandmother Diabetes mellitus Social History marital status: household members: spouse lives independently: Yes occupational status: employed Smoking Status: Never smoker alcohol intake: never substance use type: does not use Smoking Status: Never smoker Substance Use Type: does not use Exam Initial Vital Signs Initial Vital Signs: Vital Signs Temperature 97.8 F 11/05/23 07:20 Pulse Rate 75 11/05/23 07:20 Respiratory Rate 17 11/05/23 07:20 Blood Pressure 180/100 H 11/05/23 07:20 Pulse Oximetry 98 11/05/23 07:20 Oxygen Delivery Method Room Air 11/05/23 07:20 GENERAL: Alert 68-year-old male and in no acute distress. HEENT: Head atraumatic,EOMI, pupils reactive, face symmetric, moist mucous membranes CARDIOVASCULAR: Regular rate and rhythm without murmurs, rubs or gallops. RESPIRATORY: Breath sounds equal bilaterally, no wheezes rales or rhonchi. ABDOMEN: Soft left-sided pain upper flank area no guarding no rebound rest of abdomen is soft and nontender : No CVA tenderness EXTREMITIES: Normal range of motion, no clubbing or edema. Neurovascularly intact NEUROLOGICAL: Alert and oriented x4.Normal gait and speech. SKIN: Warm, dry, no laceration, no petechiae, no rashes or lesions. Course Orders Ordered: ED Orders 11/05/23 07:37 Complete Blood Count AUTO DIFF Stat Comprehensive Metabolic Panel Stat Lipase Stat 11/05/23 07:41 Urine Microscopic Stat Discontinued Medications Hydromorphone HCl (Hydromorphone 0.5 Mg Inj) 0.5 mg IV NOW ONE Stop: 11/05/23 08:27 Last Admin: 11/05/23 08:37 Dose: 0.5 mg Documented By: SIVAN Sodium Chloride (Normal Saline 0.9%) 1,000 mls @ 1,000 mls/hr IV BOLUS ONE Stop: 11/05/23 09:25 Last Admin: 11/05/23 08:33 Dose: 1,000 mls/hr Documented By: SIVAN Ondansetron HCl (Ondansetron 4 Mg/2 Ml Inj) 4 mg IV NOW PRN PRN Reason: Nausea And Vomiting Ondansetron HCl (Ondansetron 4 Mg Odt) 4 mg PO NOW PRN PRN Reason: Nausea And Vomiting Ondansetron HCl (Ondansetron 4 Mg/2 Ml Inj) 4 mg IV NOW ONE Stop: 11/05/23 08:27 Last Admin: 11/05/23 08:37 Dose: 4 mg Documented By: SIVAN Vital Signs Vital signs: Vital Signs - 8 hr 11/05/23 07:20 11/05/23 07:45 11/05/23 07:46 Temperature 97.8 F Pulse Rate 75 89 85 Respiratory Rate 17 18 16 Blood Pressure 180/100 H Pulse Oximetry 98 96 96 Oxygen Delivery Method Room Air 11/05/23 07:46 11/05/23 08:00 11/05/23 08:00 Temperature Pulse Rate 83 Respiratory Rate 13 Blood Pressure 154/94 H 143/86 H Pulse Oximetry 96 Oxygen Delivery Method 11/05/23 08:30 11/05/23 08:30 11/05/23 09:00 Temperature Pulse Rate 86 89 Respiratory Rate 14 15 Blood Pressure 137/89 Pulse Oximetry 95 95 Oxygen Delivery Method 11/05/23 09:00 11/05/23 09:30 11/05/23 09:30 Temperature Pulse Rate 78 Respiratory Rate 13 Blood Pressure 138/84 136/83 Pulse Oximetry 97 Oxygen Delivery Method 11/05/23 09:52 11/05/23 09:52 Temperature Pulse Rate 72 Respiratory Rate 16 Blood Pressure 143/88 H Pulse Oximetry 99 Oxygen Delivery Method MDM - Abdominal Pain Lab Data 11/05/23 07:37 11/05/23 07:37 Labs: Lab Results 11/05/23 11/05/23 Range/Units 07:37 07:41 WBC 10.3 (4.5-11.0) X10^3/uL RBC 5.44 (4.5-5.9) X10^6/uL Hgb 14.9 (13.5-17.5) g/dL Hct 45.0 (41-53) % MCV 82.7 (80-100) fL MCH 27.4 (26-34) PG MCHC 33.1 (30-36) % RDW 16.2 H (11.6-14.8) % Plt Count 170 (150-400) X10^3/uL Neut % (Auto) 83.8 H (50-75) % Lymph % (Auto) 7.3 L (25-40) % [place] % (Auto) 8.3 (3-14) % Eos % (Auto) 0.3 L (2-4) % Baso % (Auto) 0.3 (0-2) % Neut # (Auto) 8600 H (0255-9127) /uL Lymph # (Auto) 700 L (4353-6324) /uL [place] # (Auto) 900 (0-900) /uL Eos # (Auto) 0 (0-450) /uL Baso # (Auto) 0 (0-100) /uL Sodium 135 L (137-145) mmol/L Potassium 4.0 (3.4-5.1) mmol/L Chloride 104 (98-107) mmol/L Carbon Dioxide 23 (22-32) mmol/L BUN 20 (9-20) mg/dL Creatinine 1.66 H (0.66-1.25) mg/dL Estimated GFR 45 L (>60) mL/min BUN/Creatinine Ratio 12.0 (6-22) Glucose 161 H (80-110) mg/dL Calcium 9.1 (8.4-10.2) mg/dL Total Bilirubin 0.7 (0.2-1.3) mg/dL AST 36 (17-59) IU/L ALT 24 (<50) IU/L Alkaline Phosphatase 86 (38-126) U/L Total Protein 7.0 (6.3-8.2) g/dL Albumin 4.0 (3.5-5.0) g/dL Globulin 3.0 (1.7-4.1) g/dL Albumin/Globulin Ratio 1.3 (1.0-2.8) Lipase 41 (23-300) U/L Urine RBC 0-1/hpf (0-5/HPF) Urine WBC 0-1/hpf (0-5/HPF) Ur Squamous Epith Cells 0-1 /hpf (0-5/HPF) Amorphous Sediment 1+ Urine Bacteria None seen (None) Ur Culture Indicated? Cult not indicated Vol Urine Centrifuged 10ml (spun) Point of care testing: Urine Dip Bedside Urine Glucose Negative Bedside Urine Bilirubin - Negative Bedside Urine Ketone - Negative Urine Specific [place] 1.025 Bedside Urine Occult Blood +++ Bedside Urine pH 5.5 Bedside Urine Protein - Negative Bedside Urine Urobilinogen - Negative Bedside Urine Nitrite - Negative Bedside Urine Leukocytes - Negative Esterase Imaging Data CT scan - abdomen/pelvis: Radiologist's Impression: PROCEDURE: CT IVP A/P W/WO INDICATIONS: Gross hematuria TECHNIQUE: Optional 5 mm thick noncontrast images acquired from the diaphragm to the symphysis pubis. After the administration of intravenous contrast, 5 mm thick images acquired from the diaphragm to the symphysis pubis after a 10-minute delay. 2 mm thick coronal and sagittal reformats were then performed of the kidneys and ureters. For radiation dose reduction, the following was used: automated exposure control, adjustment of mA and/or kV according to patient size. COMPARISON: None. FINDINGS: Image quality: Diagnostic Lower chest: Basal atelectasis. Mild wall thickening at the gastroesophageal junction. Liver: Unremarkable Gallbladder and biliary system: Gas containing gallstones. No pathologic biliary dilation Pancreas: Mild parenchymal atrophy. No ductal dilation Spleen: Nonenlarged Adrenals: No discrete nodules Kidneys: Large right renal simple cyst measures up to 16 cm and partially herniates into the renal pelvis. No right-sided stones. Exophytic left lower pole renal mass measures 7.3 x 4.6 x 7.8 cm. There are small internal calcifications. This extends into the renal collecting system. The main left renal vein appears patent. The left lower pole venous tributaries may have some early tumor thrombus. The medial border of the mass contacts the psoas. This is also in close proximity to the posterior pararenal fascia. No ureter filling defects otherwise. Vessels and lymph nodes: No pathologic lymph nodes by size criteria. No abdominal aortic aneurysm. The main portal vein appears patent Bowel and peritoneum: [id number]-et-[id number] gastric distention. No acute small bowel obstruction. No pathologic ascites. Body wall: Penile implant. Small fat containing umbilical hernia Pelvis: Bladder appears unremarkable. Prostatectomy changes Bones: Right hip arthroplasty. Degenerative changes. Age-indeterminate height loss of the L1 vertebral body. IMPRESSION: Left lower pole renal mass extending into the collecting system. There may also be involvement of some venous tributaries in the left lower pole, while the main renal vein appears patent. This contacts the psoas muscle and is in close proximity to the posterior pararenal fascia This was marked for follow-up and communication in PACS. Other findings above. The lower tracts could be better evaluated cystoscopy. Dictated by: Grayson Infante M.D. on 11/01/2023 at 16:41 ECG Data Attestation: I personally reviewed and interpreted this ECG as follows: Interpretation: Normal sinus rhythm rate 83 WA interval 196 QRS 88 QTC 440 T-wave inversion noted in lead [address] changes MDM Narrative Medical decision making narrative: 68-year-old male new diagnosis of left renal cancer had multiple imaging this week shooting CT IVP with and without contrast which does show simple right large renal cyst and left-sided lower renal pole mass. Masses extending into the collecting system and there may be involvement of some venous structures. Blood work has been reviewed he does have an increased creatinine today 1.6 it was previously 1.24, no leukocytosis urinalysis is positive for blood but no leukocytes or nitrates. Patient received a L of fluid Dilaudid and Zofran. He is overall feeling much better. Unclear what caused his pain we discussed CT scan however he just had 2 CT scans this week. He agrees to hold off on scanning today however pain continues would encourage a repeat scan. Discharge Plan Departure Patient Disposition: Home Clinical Impression: Left kidney mass, Renal cyst, right, VALARIE (acute kidney injury) Activity Restrictions/Additional Instructions: *You have been diagnosed with left renal mass, acute kidney injury *What to do: Your creatinine is slightly more elevated today it is 1.6. I do recommend that you have repeat blood work next week. Dr. Styles or your PCP can order this for you. Hopefully pain improves am not sure what caused your pain today. However pain continues I do recommend repeating your CT scan. *Continue to take medications as directed [place] 1 tablet every 6 hours if needed for moderate to severe pain Zofran 4 mg every 8 hours if needed for nausea or vomiting *Follow up with your primary care provider in 2-3 days or call [phone] *Return to ER if you should have increasing pain vomiting fever or any new, worsening or concerning symptoms CONTROLLED SUBSTANCE DISCHARGE (Narcotoic/benzodiazepine/Flexeril/Phenergan) 1. You have been prescribed narcotic medications, it does have acetaminophen/Tylenol/paracetamol in it, DO NOT TAKE MORE THAN 4,00mg in 24 hours of Tylenol. TRAMADOL DOES NOT CONTAIN TYLENOL 2. Please understand that we cannot provide further refills of narcotics, benzodiazepines or controlled substances through the ED and her pain management will need to be through your provider. 3. While on these medications you cannot drive or operate heavy machinery. 4. You cannot sign legal documents or perform any duties such as this. 5. As long as you're taking opiate pain medications he should also be taking a stool softener such as Colace, Dulcolax, MiraLAX or prune juice, to help avoid constipation. Prescriptions: New hydrocodone-acetaminophen 5-325 mg tablet 1 tab PO Q6H PRN (Reason: pain) Qty: 20 0RF ondansetron 4 mg tablet,disintegrating 4 mg PO Q8H PRN (Reason: nausea and vomiting) Qty: 20 0RF No Action levothyroxine 50 mcg tablet 50 mcg PO DAILY Qty: 90 3RF tamsulosin 0.4 mg capsule 0.4 mg PO BEDTIME Qty: 30 0RF pantoprazole 40 mg tablet,delayed release (DR/EC) 20 mg PO DAILY Jose Enrique Multivitamin For Men 200-175-250 mcg tablet PO ascorbate calcium (vitamin C) 500 mg tablet 500 mg PO DAILY ciprofloxacin HCl 500 mg tablet 500 mg PO BID Qty: 7 0RF Referrals: Jethro Finney MD [Primary Care Provider] - Stand Alone Forms: Patient Portal/API
[2023-11-05] MEDS: SODIUM CHLORIDE 0.9% 1,000 ML 1000 ML IV (08:33)
[2023-11-05 08:34] LABS: Alanine Aminotransferase 24 IU/L (<50); Albumin Globulin Ratio 1.3 (1.0-2.8); Alkaline Phosphatase 86 U/L (38-126); Aspartate Aminotransferase 36 IU/L (17-59); Bilirubin Total 0.7 mg/dL (0.2-1.3); Blood Urea Nitrogen 20 mg/dL (9-20); Calcium 9.1 mg/dL (8.4-10.2); Carbon Dioxide 23 mmol/L (22-32); Chloride 104 mmol/L (98-107); Estimated Glomerular Filt Rate 45 mL/min (>60); Glucose 161 mg/dL (80-110); HEMOLYSIS < 15 (0-50); Lipase 41 U/L (23-300); Sodium 135 mmol/L (137-145)
[2023-11-05] MEDS: HYDROMORPHONE 0.5 MG INJ IV (08:37)
[2023-11-05] MEDS: ONDANSETRON 4 MG/2 ML INJ IV (08:37)
[2023-11-05 09:09] LABS: Amorphous Sediment Urine 1+; Bacteria Urine None Seen; Culture Indicated Urine Cult Not Indicated; RBC Urine 0-1/HPF (0-5/HPF); Squamous Epithelial Cell Urine 0-1 /HPF (0-5/HPF); Urine Volume 10mL (spun); WBC Urine 0-1/HPF (0-5/HPF)
== END 2023-11-05 10:05 | disposition home or self-care (01) ==
PROVIDERS: Emergency Provider Emergency Medicine; Family Provider Family Medicine; PCP Family Medicine
DX: N28.89 Other specified disorders of kidney and ureter (principal); N28.1 Cyst of kidney, acquired; N17.9 Acute kidney failure, unspecified
CPT/HCPCS: 36415; 51798; 80053; 81003; 81015; 83690; 85025; 93005; 96361; 96374; 96375; 99284; J1170; J2405

== ENCOUNTER → 2023-12-02 19:46 | Outpatient (CLI) | payer OTHER, SELFPAY ==
[2023-11-30 11:57] VITALS: BMI 28.6
== END ==
PROVIDERS: Family Provider Family Medicine; PCP Family Medicine; Referring Provider Internal Medicine; Visit Provider Internal Medicine
DX: Z23 Encounter for immunization (principal)
CPT/HCPCS: 90471; 90656

== ENCOUNTER → 2024-01-31 08:22 | Outpatient (CLI) | payer OTHER, SELFPAY ==
[2023-11-30 11:57] VITALS: BMI 28.6
[2024-01-31 08:41] LABS: Appearance Urine UA CLEAR; Bilirubin Urine UA NEGATIVE (NEGATIVE); Color Urine UA YELLOW; Glucose Urine UA NEGATIVE (Negative); Ketones Urine UA NEGATIVE (NEGATIVE); Leukocyte Esterase Urine UA TRACE (NEGATIVE); Nitrite Urine UA NEGATIVE (Negative); Occult Blood Urine UA 3+ (Negative); Protein Urine UA 2+ (Negative); Specific Gravity Urine UA >=1.030 (1.000-1.035); Urobilinogen Urine UA 0.2 E.U./dL (0.2)
[2024-01-31 08:47] LABS: Bacteria Urine None Seen; Culture Indicated Urine Specimen Cultured; RBC Urine 10-30/HPF (0-5/HPF); Squamous Epithelial Cell Urine 1-5 /HPF (0-5/HPF); Urine Volume 10mL (spun); WBC Urine 5-10/HPF (0-5/HPF)
== END ==
LOC: LAB 08:24
PROVIDERS: Family Provider Family Medicine; PCP Family Medicine; Referring Provider Urology; Visit Provider Urology
DX: Z01.818 Encounter for other preprocedural examination (principal)
CPT/HCPCS: 81001; 87086

== ENCOUNTER → 2024-06-25 10:04 | Outpatient (CLI) | payer MEDICARE, OTHER, SELFPAY ==
[2023-11-30 11:57] VITALS: BMI 28.6
[2024-06-25 10:41] LABS: Add Manual Diff / Slide Review NO; Basophils Absolute Auto 100 /uL (0-100); Basophils Percent Auto 0.9 % (0-2); Eosinophils Absolute Auto 400 /uL (0-450); Eosinophils Percent Auto 5.2 % (2-4); Hematocrit 45.1 % (41-53); Hemoglobin 15.5 g/dL (13.5-17.5); Lymphocytes Absolute Auto 2200 /uL (1100-4500); Lymphocytes Percent Auto 31.2 % (25-40); Mean Corpuscular HGB Conc 34.3 % (30-36); Mean Corpuscular Hemoglobin 29.3 PG (26-34); Mean Corpuscular Volume 85.3 fL (80-100); Monocytes Absolute Auto 800 /uL (0-900); Monocytes Percent Auto 10.9 % (3-14); Neutrophils Absolute Auto 3700 /uL (1500-7000); Neutrophils Percent Auto 51.8 % (50-75); Platelet Count 183 X10^3/uL (150-400); Red Blood Cell Count 5.28 X10^6/uL (4.5-5.9); Red Cell Distribution Width 15.8 % (11.6-14.8); White Blood Cell Count 7.1 X10^3/uL (4.5-11.0)
[2024-06-25 10:59] LABS: Alanine Aminotransferase 23 IU/L (<50); Albumin 4.1 g/dL (3.5-5.0); Albumin Globulin Ratio 1.8 (1.0-2.8); Alkaline Phosphatase 66 U/L (38-126); Aspartate Aminotransferase 27 IU/L (17-59); BUN Creatinine Ratio 9.3 (6-22); Bilirubin Total 0.9 mg/dL (0.2-1.3); Blood Urea Nitrogen 20 mg/dL (9-20); Calcium 9.4 mg/dL (8.4-10.2); Carbon Dioxide 27 mmol/L (22-32); Chloride 105 mmol/L (98-107); Cholesterol 131 mg/dL (140-199); Estimated Glomerular Filt Rate 33 mL/min (>60); Globulin 2.3 g/dL (1.7-4.1); Glucose 82 mg/dL (70-99); HDL Cholesterol 50 mg/dL (40-60); HEMOLYSIS < 15 (0-50); LDL Cholesterol Calculated 46 mg/dL (<100); Potassium 4.6 mmol/L (3.4-5.1); Sodium 139 mmol/L (137-145); Total Protein 6.4 g/dL (6.3-8.2); Triglycerides 177 mg/dL (35-150)
[2024-06-25 11:31] LABS: TSH w/ Reflex to FT4 2.72 uIU/mL (0.47-4.68)
== END ==
PROVIDERS: Family Provider Family Medicine; PCP Family Medicine; Referring Provider Family Medicine; Visit Provider Family Medicine
DX: C64.2 Malignant neoplasm of left kidney, except renal pelvis (principal); E03.9 Hypothyroidism, unspecified
CPT/HCPCS: 36415; 80053; 80061; 84443; 85025

== ENCOUNTER → 2024-09-26 11:02 | Outpatient (CLI) | payer MEDICARE, OTHER, SELFPAY ==
[2023-11-30 11:57] VITALS: BMI 28.6
[2024-09-26 12:27] LABS: Blood Urea Nitrogen 25 mg/dL (9-20); Calcium 9.6 mg/dL (8.4-10.2); Carbon Dioxide 25 mmol/L (22-32); Chloride 104 mmol/L (98-107); Estimated Glomerular Filt Rate 39 mL/min (>60); Glucose 51 mg/dL (70-99); HEMOLYSIS < 15 (0-50); Potassium 4.8 mmol/L (3.4-5.1); Sodium 139 mmol/L (137-145)
== END ==
PROVIDERS: Family Provider Family Medicine; PCP Family Medicine; Referring Provider Family Medicine; Visit Provider Family Medicine
DX: N18.32 Chronic kidney disease, stage 3b (principal); Z90.5 Acquired absence of kidney
CPT/HCPCS: 36415; 80048

== ENCOUNTER → 2025-02-11 11:14 | Outpatient (CLI) | payer MEDICARE, OTHER, SELFPAY ==
[2023-11-30 11:57] VITALS: BMI 28.6
--- NOTE | 2025-02-11 11:15 | DI.CT.S_ITS ---
PROCEDURE: CT CHEST ABDOMEN W CON INDICATIONS: left RCC s/p left nephrectomy TECHNIQUE: After the administration of intravenous contrast, 5 mm thick sections acquired from the lung apices to the iliac crests. 5 mm coronal and sagittal reformats were performed, with additional 7 mm coronal MIP reformats through the lungs. For radiation dose reduction, the following was used: automated exposure control, adjustment of mA and/or kV according to patient size. COMPARISON: [facility], CT, CT IVP A/P W/WO, 11/01/2023, 6:49. [facility], CT, CT CHEST W CON, 11/03/2023, 12:20. FINDINGS: Image quality: Diagnostic. CHEST: Lower Neck: No enlarged lymph nodes. Thyroid: No thyroid nodules which require sonographic follow up, per consensus guidelines. Axillae: No enlarged lymph nodes. Chest Wall: Mild gynecomastia, symmetric. Stable subdermal lesion inferior to the right nipple measuring 8 mm, probably represent in an epidermal inclusion cyst in this population. Bones: Unremarkable. Lungs and Pleura: Stable 5 mm solid nodule, right lung apex (series 5, image 66). Heart: Cardiomegaly. Thoracic Vessels: The aorta and pulmonary arteries demonstrate normal size. Mediastinum and [place]: No enlarged lymph nodes. Esophagus: No wall thickening. Small hiatal hernia. ABDOMEN: Liver: No solid mass. Gallbladder: Cholelithiasis without wall thickening or adjacent fat stranding to suggest acute cholecystitis. Biliary ducts: No biliary dilation. Pancreas: No ductal dilation. Spleen: Size is within normal limits. Adrenal Glands: No adrenal nodules. Kidneys and Ureters: Interval left nephrectomy. Large right renal sinus cyst is similar to prior, without complex features. Stomach and Bowel: Normal colonic caliber, without significant wall thickening. Peritoneum: No abnormal intraperitoneal fluid. No free air. Ventral Wall: No significant ventral hernia. Abdominal Nodes: Stable nonenlarged but prominent aortocaval node measuring 8 mm short axis (series 2, image 113). Vessels: Aorta and inferior vena cava are normal in size. PELVIS: Pelvic Organs: Unremarkable. Bladder: No bladder wall thickening, accounting for underdistention. Pelvic Nodes: No enlarged lymph nodes. Miscellaneous: No inguinal hernias are seen. Bones: No aggressive osseous abnormality. IMPRESSION: Interval left nephrectomy. Similar prominent but not pathologically enlarged aortocaval node measuring 8 mm short axis. Attention on follow-up. No evidence of metastatic disease. Cholelithiasis without wall thickening or adjacent fat stranding to suggest acute cholecystitis. Similar large right renal sinus cyst. No hydronephrosis. Dictated by: Marcos Barragan M.D. on 02/12/2025 at 10:03 Approved by: Marcos Barragan M.D. on 02/12/2025 at 10:13
[2025-02-11 11:37] LABS: Estimated Glomerular Filt Rate 39 mL/min (>60)
== END ==
LOC: CT 11:15
PROVIDERS: Family Provider Family Medicine; PCP Family Medicine; Referring Provider Urology; Visit Provider Urology
DX: C64.1 Malignant neoplasm of right kidney, except renal pelvis (principal); N28.1 Cyst of kidney, acquired; R91.1 Solitary pulmonary nodule; K44.9 Diaphragmatic hernia without obstruction or gangrene; I51.7 Cardiomegaly; N62 Hypertrophy of breast; K80.20 Calculus of gallbladder without cholecystitis without obstruction; Z85.528 Personal history of other malignant neoplasm of kidney; Z90.5 Acquired absence of kidney
CPT/HCPCS: 36415; 71260; 74160; 82565; Q9967